=== PATIENT | female | born 1955 | race Caucasian/White ===

== ENCOUNTER → 2017-07-12 | Outpatient (CLI) | payer OTHER ==
[~2017-07-12] MED LIST: ACETAMINOPHEN325 M1 PO; ACETAMINOPHEN650 M5 PO; ACIDOPHILUS1 EAC4 PO; ADULT LOW DOSE81 MG PO; ADVAIR 500-501 EACH INH; ALBUTEROL2.5 MG/31 INH; ALDACTONE50 MG PO; ARICEPT 5 MG TAB5 MG PO; ASPIRIN EC81 M1 PO; ASPIRIN325 PO; ASPIRIN81 M2 PO; ATENOLOL 50MG T50 M1 PO; AUGMENTIN 875875 M1 PO; BAYER CHEWABLE81 MG PO; BENADRYL ALLERG25 MG PO; BENADRYL25 MG PO; BUMETANIDE 1 MG1 M1 PO; CARAFATE 1 GM TA1 G1 PO; CARAFATE 1 GM TA1 GM PO; CIPRO500 MG/5 M PO; COLACE100 MG PO; COMBIVENT INH; COMBIVENT RESPIM4 GM INH; COUMADIN 2.5MG2.5 M1 PO; COUMADIN 5 MG TA5 M1 PO; DEEP SEA NASAL44 M1 NASAL; DIFLUCAN200 MG PO; DOXYCYCLINE 10100 MG PO; DUONEB 2.5-0.5 M3 ML INH; DURAGESIC25 MCG/HR TRANSDERM; FLAGYL 250 MG250 MG PO; FLEXERIL PO; FLONASE 0.05%50 MCG NASAL; GLUCOPHAGE1000 MG PO; GLUCOPHAGE500 MG PO; GLYBURIDE 5 MG T5 M1 PO; GLYCOLAX POWDER17 G1 PO; K-DUR 20 MEQ T20 MEQ PO; KEFLEX500 M1 PO; KEFLEX500 MG PO; LASIX 40 MG TAB40 M2 PO; LEVAQUIN 500 M500 M2 PO; LOPRESSOR 50 MG50 M1 PO; LOPRESSOR100 MG PO; LOPRESSOR25 PO; LOPRESSOR50 PO; LOVENOX40 MG/0.4 SUBQ; METHIMAZOLE5 MG PO; MIRALAX17 GM PO; MIRAPEX0.25 MG PO; MIRAPEX0.5 MG PO; MULTAQ400 MG PO; NEURONTIN 300300 M1 PO; NEURONTIN600 MG PO; NYSTATIN100000 UNI SWISH&SPIT; OXYCODONE-ACET1 EACH PO; OXYCONTIN20 M1 PO; PERCOCET 10-321 EACH PO; PERCOCET 5-3251 EACH PO; PERCOCET 7.5-31 EACH PO; POTASSIUM20 PO; PREDNISONE 10 M10 M1; PREDNISONE 10 M10 M1 PO; PREDNISONE 20 M20 MG; PROAIR HFA8.5 GM INH; PROBIOTIC1 EAC1 PO; PROPYLTHIOURACIL PO; PROPYLTHIOURACIL1 GM PO; PROTONIX40 M2 PO; PROVENTIL HFA6.7 G1 INH; SENNA PO; TAPAZOLE10 MG PO; TIZANIDINE HCL4 MG PO; TRAMADOL 50 MG50 MG PO; VANCOMYCIN1 GM/1001 IV; WELLBUTRIN SR150 MG PO; ZANAFLEX4 MG PO; ZOFRAN 4 MG ORAL4 MG PO; ZOFRAN4 MG PO; ZOSYN 3.373.375 GM/1 IVPB
== END ==
LOC: HYPER 06:55
DX: E11.622 Type 2 diabetes mellitus with other skin ulcer (principal); I87.332 Chronic venous hypertension (idiopathic) with ulcer and inflammation of left lower extremity; L97.321 Non-pressure chronic ulcer of left ankle limited to breakdown of skin; M79.7 Fibromyalgia; M32.10 Systemic lupus erythematosus, organ or system involvement unspecified; E11.40 Type 2 diabetes mellitus with diabetic neuropathy, unspecified; J44.9 Chronic obstructive pulmonary disease, unspecified; I25.10 Atherosclerotic heart disease of native coronary artery without angina pectoris; F41.9 Anxiety disorder, unspecified; F32.9 Major depressive disorder, single episode, unspecified; K21.9 Gastro-esophageal reflux disease without esophagitis; M19.90 Unspecified osteoarthritis, unspecified site; E11.51 Type 2 diabetes mellitus with diabetic peripheral angiopathy without gangrene; E66.9 Obesity, unspecified; Z68.32 Body mass index [BMI] 32.0-32.9, adult; Z86.718 Personal history of other venous thrombosis and embolism

== ENCOUNTER → 2017-11-02 | Outpatient (CLI) | payer OTHER ==
[~2017-11-02] MED LIST changes: -ACIDOPHILUS1 EAC4 PO; -DURAGESIC25 MCG/HR TRANSDERM; -KEFLEX500 M1 PO; -NYSTATIN100000 UNI SWISH&SPIT; -OXYCODONE-ACET1 EACH PO; -OXYCONTIN20 M1 PO; -PROBIOTIC1 EAC1 PO; -VANCOMYCIN1 GM/1001 IV
== END ==
LOC: HYPER 06:45
DX: E11.622 Type 2 diabetes mellitus with other skin ulcer (principal); I87.333 Chronic venous hypertension (idiopathic) with ulcer and inflammation of bilateral lower extremity; L97.321 Non-pressure chronic ulcer of left ankle limited to breakdown of skin; L97.822 Non-pressure chronic ulcer of other part of left lower leg with fat layer exposed; E11.621 Type 2 diabetes mellitus with foot ulcer; L97.512 Non-pressure chronic ulcer of other part of right foot with fat layer exposed; E11.39 Type 2 diabetes mellitus with other diabetic ophthalmic complication; H40.9 Unspecified glaucoma; E11.51 Type 2 diabetes mellitus with diabetic peripheral angiopathy without gangrene; E11.40 Type 2 diabetes mellitus with diabetic neuropathy, unspecified; E66.9 Obesity, unspecified; I25.10 Atherosclerotic heart disease of native coronary artery without angina pectoris; E03.9 Hypothyroidism, unspecified; K21.9 Gastro-esophageal reflux disease without esophagitis; M79.7 Fibromyalgia; M32.10 Systemic lupus erythematosus, organ or system involvement unspecified; M19.90 Unspecified osteoarthritis, unspecified site; G47.30 Sleep apnea, unspecified; J44.9 Chronic obstructive pulmonary disease, unspecified; F41.9 Anxiety disorder, unspecified; F32.9 Major depressive disorder, single episode, unspecified; Z68.32 Body mass index [BMI] 32.0-32.9, adult; Z86.718 Personal history of other venous thrombosis and embolism; Z87.891 Personal history of nicotine dependence

== ENCOUNTER → 2017-11-30 | Outpatient (CLI) | payer OTHER | LOC: HYPER 06:54 | DX: E11.621 Type 2 diabetes mellitus with foot ulcer (principal); L97.512 Non-pressure chronic ulcer of other part of right foot with fat layer exposed; E11.622 Type 2 diabetes mellitus with other skin ulcer; L97.822 Non-pressure chronic ulcer of other part of left lower leg with fat layer exposed; I87.333 Chronic venous hypertension (idiopathic) with ulcer and inflammation of bilateral lower extremity; M79.7 Fibromyalgia; M32.10 Systemic lupus erythematosus, organ or system involvement unspecified; E11.40 Type 2 diabetes mellitus with diabetic neuropathy, unspecified; J44.9 Chronic obstructive pulmonary disease, unspecified; I25.10 Atherosclerotic heart disease of native coronary artery without angina pectoris; F41.9 Anxiety disorder, unspecified; F32.9 Major depressive disorder, single episode, unspecified; K21.9 Gastro-esophageal reflux disease without esophagitis; M19.90 Unspecified osteoarthritis, unspecified site; E66.9 Obesity, unspecified; Z68.32 Body mass index [BMI] 32.0-32.9, adult; E11.51 Type 2 diabetes mellitus with diabetic peripheral angiopathy without gangrene; Z87.891 Personal history of nicotine dependence; Z86.718 Personal history of other venous thrombosis and embolism ==

== ENCOUNTER → 2017-12-27 | Outpatient (CLI) | payer OTHER | LOC: HYPER 06:50 | DX: E11.622 Type 2 diabetes mellitus with other skin ulcer (principal); I87.333 Chronic venous hypertension (idiopathic) with ulcer and inflammation of bilateral lower extremity; L97.822 Non-pressure chronic ulcer of other part of left lower leg with fat layer exposed; L97.811 Non-pressure chronic ulcer of other part of right lower leg limited to breakdown of skin; E11.621 Type 2 diabetes mellitus with foot ulcer; L97.512 Non-pressure chronic ulcer of other part of right foot with fat layer exposed; L97.321 Non-pressure chronic ulcer of left ankle limited to breakdown of skin; L97.311 Non-pressure chronic ulcer of right ankle limited to breakdown of skin; E11.40 Type 2 diabetes mellitus with diabetic neuropathy, unspecified; E11.39 Type 2 diabetes mellitus with other diabetic ophthalmic complication; H40.9 Unspecified glaucoma; E11.51 Type 2 diabetes mellitus with diabetic peripheral angiopathy without gangrene; E66.9 Obesity, unspecified; I25.10 Atherosclerotic heart disease of native coronary artery without angina pectoris; E03.9 Hypothyroidism, unspecified; K21.9 Gastro-esophageal reflux disease without esophagitis; M32.10 Systemic lupus erythematosus, organ or system involvement unspecified; M19.90 Unspecified osteoarthritis, unspecified site; G47.30 Sleep apnea, unspecified; J44.9 Chronic obstructive pulmonary disease, unspecified; F41.9 Anxiety disorder, unspecified; F32.9 Major depressive disorder, single episode, unspecified; Z86.718 Personal history of other venous thrombosis and embolism; Z87.891 Personal history of nicotine dependence; Z68.32 Body mass index [BMI] 32.0-32.9, adult ==

== ENCOUNTER → 2018-01-22 | Outpatient (CLI) | payer OTHER | LOC: HYPER 07:04 | DX: E11.622 Type 2 diabetes mellitus with other skin ulcer (principal); I87.333 Chronic venous hypertension (idiopathic) with ulcer and inflammation of bilateral lower extremity; L97.822 Non-pressure chronic ulcer of other part of left lower leg with fat layer exposed; L97.321 Non-pressure chronic ulcer of left ankle limited to breakdown of skin; E11.621 Type 2 diabetes mellitus with foot ulcer; L97.521 Non-pressure chronic ulcer of other part of left foot limited to breakdown of skin; L97.511 Non-pressure chronic ulcer of other part of right foot limited to breakdown of skin; E11.40 Type 2 diabetes mellitus with diabetic neuropathy, unspecified; E11.39 Type 2 diabetes mellitus with other diabetic ophthalmic complication; H40.89 Other specified glaucoma; H42 Glaucoma in diseases classified elsewhere; E11.51 Type 2 diabetes mellitus with diabetic peripheral angiopathy without gangrene; I25.10 Atherosclerotic heart disease of native coronary artery without angina pectoris; E66.9 Obesity, unspecified; E03.9 Hypothyroidism, unspecified; K21.9 Gastro-esophageal reflux disease without esophagitis; M19.90 Unspecified osteoarthritis, unspecified site; M32.10 Systemic lupus erythematosus, organ or system involvement unspecified; M79.7 Fibromyalgia; G47.30 Sleep apnea, unspecified; J44.9 Chronic obstructive pulmonary disease, unspecified; F41.9 Anxiety disorder, unspecified; F32.9 Major depressive disorder, single episode, unspecified; Z87.891 Personal history of nicotine dependence; Z86.718 Personal history of other venous thrombosis and embolism; Z68.32 Body mass index [BMI] 32.0-32.9, adult ==

== ENCOUNTER 2018-02-27 09:33 | Inpatient (IN) | payer OTHER ==
[~2018-02-27] VITALS: Ht 172.7 cm; Wt 100.2 kg
--- NOTE | ~2018-02-27 | HC ---
[facility] [address] [place] [address] CONSULTATION Name: JORGITO MANNING Room #: 450-P [facility] IN ..#: [id number] Admission: 02/27/18 Attend Phys: Odin Rudolph MD Discharge: Date of : 57 Report #: [id number] THIS REPORT FOR: //name// CC: Odin Parra DATE OF SERVICE: 03/01/2018 CHIEF COMPLAINT: Multiple venous ulcerations to both lower extremities. HISTORY OF PRESENT ILLNESS: This is a 62-year-old female patient with whom I am familiar from the wound care service with chronic infected ulcerations to both lower extremities and underlying venous insufficiency. She has been seen by Dr. Raghavendra Braun and has undergone some venous ablation procedures. She has had persistent ulcerations and has developed increasing slough and infection. She has been admitted to the hospital and has undergone surgical ultrasonic debridement. She is having some pain today. PAST MEDICAL HISTORY: Positive for history of venous insufficiency, cellulitis, chronic ulcerations, and history of sepsis. ALLERGIES: MEPERIDINE, SULFA, HYDROMORPHONE, AND PHENYTOIN. MEDICATIONS: Include doxycycline, oxycodone, cyclobenzaprine, Protonix, Advair, Ultram, AccuNeb, Mirapex, Aricept, Combivent inhaler, Zanaflex, Neurontin, Tenormin, Tapazole, potassium, Percocet, enteric-coated aspirin. SOCIAL HISTORY: The patient is a previous smoker. No history of drug or alcohol use. FAMILY HISTORY: Noncontributory. REVIEW OF SYSTEMS: CONSTITUTIONAL: The patient denies fever, chills or weight loss. NEUROLOGICAL: The patient denies focal weakness, numbness or tingling. EYES: The patient denies visual changes, redness or drainage. ENT: The patient denies earache, nasal drainage, or sore throat. CARDIOVASCULAR: The patient denies chest pain, palpitations, or diaphoresis. PULMONARY: The patient denies cough or shortness of breath. GASTROINTESTINAL: The patient denies nausea, vomiting, diarrhea or abdominal pain. ORTHOPEDIC: The patient complains of painful ulcerations bilateral lower extremities with some lower extremity edema. Other systems in a 14-point review of systems are negative. [address] [address] CONSULTATION Name: JORGITO MANNING Room #: 450-[facility] IN [facility].#: [id number] Admission: 02/27/18 Attend Phys: Odin Rudolph MD Discharge: Date of : 57 Report #: [id number] PHYSICAL EXAMINATION: VITAL SIGNS: At this time include pulse rate 58, respiratory rate of 18, blood pressure 114/61, temperature 98.6. GENERAL: This is a well-developed female patient, appears to be in minimal distress. HEENT: Head is normocephalic. Nose and throat clear. NECK: Supple. LUNGS: Clear. HEART: . ABDOMEN: Bowel sounds present. EXTREMITIES: The lower extremities demonstrate palpable distal pulses. She has moderate edema. She has multiple ulcerations involving both lower extremities, more so on the right than the left including the lower leg and the medial and plantar portion of her right foot. LABORATORY DATA: Includes sodium 140, potassium 4.5, chloride 104, CO2 22, BUN 18, creatinine 1.1, glucose 79. White blood cell count is 10.1, hemoglobin 13.2, hematocrit of 40.0, platelet count 429,000. CLINICAL IMPRESSION: 1. Nonhealing venous stasis ulcerations bilateral lower extremities. 2. Venous stasis dermatitis. 3. Recurrent wound infection with failure of outpatient therapy. RECOMMENDATIONS: The patient has already undergone Misonix debridement. We will recommend topical wound care with Xeroform gauze. Recommend elevation of the extremity. She remains on antibiotic therapy. She may benefit from tissue substitute at some point in time. I appreciate being asked to see her in consultation. <ELECTRONICALLY SIGNED> By: Dar Skinner MD 03/02/18 0741 [id number] Dar Skinner MD /nt
[~2018-02-27 09:33] MED LIST changes: +KEFLEX500 M1 PO; +PROBIOTIC1 EAC1 PO
[2018-02-27 09:43] VITALS: BP 120/67
[2018-02-27 10:36] LABS: HEMATOCRIT 37.4 % (37.0-47.0); HEMOGLOBIN 12.4 gm/dL (12.0-15.0); MCH 30.2 pg (26.0-34.0); MCHC 33.1 g/dL (28.0-37.0); MCV 91.3 fL (80.0-100.0); PLATELET COUNT 548 thou/uL (150-400); RBC 4.09 mil/uL (4.20-5.00); RDW 14.3 % (10.5-14.5); WBC 11.6 thou/uL (4.0-11.0)
[2018-02-27 10:55] LABS: CALCIUM 9.1 mg/dL (8.5-10.1)
[2018-02-27 10:59] LABS: ALBUMIN 3.1 g/dL (3.4-5.0); DIRECT BILIRUBIN 0.1 mg/dL (<0.1-0.3); TOTAL BILIRUBIN 0.5 mg/dL (<0.1-1.0); TOTAL PROTEIN 7.7 g/dL (6.4-8.2)
[2018-02-27] MEDS ORDERED: OXYCONTIN20 M1 PO (11:04)
[2018-02-27] MEDS ORDERED: OXYCODONE-ACET1 EACH PO (11:05)
[2018-02-27 11:14] LABS: PLATELET ESTIMATE INCREASED
[2018-02-27 12:53] VITALS: BP 115/66
[2018-02-27 13:05] VITALS: BP 121/55
[2018-02-27 16:25] VITALS: BP 115/73
[2018-02-27 19:51] VITALS: BP 111/66
[2018-02-28 02:28] VITALS: BP 110/57
[2018-02-28 05:54] LABS: HEMOGLOBIN 13.2 gm/dL (12.0-15.0); MCH 30.4 pg (26.0-34.0); MCHC 32.9 g/dL (28.0-37.0); MCV 92.5 fL (80.0-100.0); RBC 4.33 mil/uL (4.20-5.00); RDW 14.7 % (10.5-14.5); WBC 10.1 thou/uL (4.0-11.0)
[2018-02-28 05:59] LABS: CALCIUM 9.4 mg/dL (8.5-10.1); CREATININE 1.1 mg/dL (0.6-1.0); POTASSIUM 4.5 mmol/L (3.5-5.1)
[2018-02-28 08:23] VITALS: BP 110/62
[2018-02-28 19:11] VITALS: BP 106/70
[2018-03-01 03:27] VITALS: BP 112/58
[2018-03-01 07:28] VITALS: BP 102/58
[2018-03-01 17:05] VITALS: BP 114/61
[2018-03-01 19:27] VITALS: BP 113/71
[2018-03-02 05:05] VITALS: BP 96/66
[2018-03-02] MEDS ORDERED: DURAGESIC25 MCG/HR TRANSDERM (08:54)
[2018-03-02] MEDS ORDERED: DOXYCYCLINE 10100 MG PO (08:54)
[2018-03-02 09:42] VITALS: BP 109/63
[2018-03-02 10:58] VITALS: BP 109/63
[2018-03-02 11:49] VITALS: BP 109/63
== END 2018-03-02 13:24 | disposition home health service (06) | DRG 854 ==
LOC: ER 09:33 → EROBS 10:59 → 4W 10:59 → ENTRNSPT 03-02 13:13 → 4W 03-02 13:24
PROVIDERS: Emergency Medicine; Hospitalist
PROC: 0JBP0ZZ Excision of Left Lower Leg Subcutaneous Tissue and Fascia, Open Approach (ICD-10-PCS; principal; 2018-02-28)
PROC: 0JBN0ZZ Excision of Right Lower Leg Subcutaneous Tissue and Fascia, Open Approach (ICD-10-PCS; principal; 2018-02-28)
DX: A41.9 Sepsis, unspecified organism (principal); L03.115 Cellulitis of right lower limb; L97.909 Non-pressure chronic ulcer of unspecified part of unspecified lower leg with unspecified severity; L03.116 Cellulitis of left lower limb; I87.2 Venous insufficiency (chronic) (peripheral); I73.9 Peripheral vascular disease, unspecified; J44.9 Chronic obstructive pulmonary disease, unspecified; I50.9 Heart failure, unspecified; H40.9 Unspecified glaucoma; E03.9 Hypothyroidism, unspecified; Z16.30 Resistance to unspecified antimicrobial drugs; M34.9 Systemic sclerosis, unspecified; M32.9 Systemic lupus erythematosus, unspecified; Z87.891 Personal history of nicotine dependence; Z79.82 Long term (current) use of aspirin; Z79.899 Other long term (current) drug therapy; Z90.49 Acquired absence of other specified parts of digestive tract; Z98.49 Cataract extraction status, unspecified eye; Z88.8 Allergy status to other drugs, medicaments and biological substances; Z88.6 Allergy status to analgesic agent; Z88.2 Allergy status to sulfonamides
CPT/HCPCS: 10040; 50010; 50101; 50386; 50403; 57119; 57120; 62110; 62900; 70005

== ENCOUNTER → 2018-04-03 | Outpatient (CLI) | payer OTHER ==
[~2018-04-03] MED LIST changes: +ACIDOPHILUS1 EAC4 PO; +DURAGESIC25 MCG/HR TRANSDERM; +NYSTATIN100000 UNI SWISH&SPIT; +OXYCODONE-ACET1 EACH PO; +OXYCONTIN20 M1 PO; +VANCOMYCIN1 GM/1001 IV
== END ==
LOC: HYPER 07:06
DX: E11.622 Type 2 diabetes mellitus with other skin ulcer (principal); L97.322 Non-pressure chronic ulcer of left ankle with fat layer exposed; L97.811 Non-pressure chronic ulcer of other part of right lower leg limited to breakdown of skin; I87.333 Chronic venous hypertension (idiopathic) with ulcer and inflammation of bilateral lower extremity; E11.621 Type 2 diabetes mellitus with foot ulcer; L97.512 Non-pressure chronic ulcer of other part of right foot with fat layer exposed; T14.8XXD Other injury of unspecified body region, subsequent encounter; L03.115 Cellulitis of right lower limb; E11.51 Type 2 diabetes mellitus with diabetic peripheral angiopathy without gangrene; E11.39 Type 2 diabetes mellitus with other diabetic ophthalmic complication; H40.9 Unspecified glaucoma; E11.40 Type 2 diabetes mellitus with diabetic neuropathy, unspecified; E66.9 Obesity, unspecified; E05.00 Thyrotoxicosis with diffuse goiter without thyrotoxic crisis or storm; G47.30 Sleep apnea, unspecified; I25.10 Atherosclerotic heart disease of native coronary artery without angina pectoris; M79.7 Fibromyalgia; M32.10 Systemic lupus erythematosus, organ or system involvement unspecified; M19.90 Unspecified osteoarthritis, unspecified site; J44.9 Chronic obstructive pulmonary disease, unspecified; K21.9 Gastro-esophageal reflux disease without esophagitis; F41.9 Anxiety disorder, unspecified; F32.9 Major depressive disorder, single episode, unspecified; Z86.718 Personal history of other venous thrombosis and embolism; Z87.891 Personal history of nicotine dependence

== ENCOUNTER 2018-04-13 15:45 | Inpatient (IN) | payer OTHER ==
[~2018-04-13] VITALS: Ht 172.7 cm; Wt 102.5 kg
--- NOTE | ~2018-04-13 | HC ---
[facility] [address] [place] [address] CONSULTATION Name: JORGITO MANNING Philomena Room #: 458-P [facility] [place] M.R.#: [id number] Admission: 04/13/18 Attend Phys: Paul Anderson MD Discharge: Date of : 57 Report #: [id number] THIS REPORT FOR: //name// CC: APOLLO Anderson DATE OF SERVICE: 04/14/2018 ATTENDING PHYSICIAN: Dr. Anderson. REASON FOR EVALUATION: Bilateral lower extremity inflammatory eruptions, likely multifactorial including a component of skin and soft tissue infection with cellulitis. She does have open wounds as well. HISTORY OF PRESENT ILLNESS: Chart reviewed, patient examined. This is a 62-year-old with a history of systemic lupus erythematosus with scleroderma, somewhat of a fibromyalgia with pain as well who presented with worsening pain and discomfort associated with bilateral lower extremities. They are weeping increasingly and difficult to walk. She notes she had been evaluated by Vascular Surgery, has been undergoing some laser procedures as well. She was placed on oral doxycycline without significant improvement. She was found to have a sed rate of 100. Cultures have been collected of the blood and the wound. Empirically treated with piperacillin-tazobactam as well as vancomycin. She notes there is a mildly less pain. Has not had significant pulmonary-related complaints. Had some anorexia with poor p.o. intake and weight loss. Some low grade temperature elevations. ALLERGIES: LISTED TO HYDROMORPHONE, PHENYTOIN, SULFA, MEPERIDINE. CURRENT MEDICATIONS: Include vancomycin, fentanyl, aspirin, fluticasone, pantoprazole, Zosyn, gabapentin, enoxaparin, bumetanide, dronedarone, atenolol, donepezil, pramipexole, furosemide, docusate, oxycodone. PAST MEDICAL HISTORY: The above noted lupus diagnosed roughly 15 years ago, scleroderma, COPD, component of restrictive lung disease, cardiomyopathy with congestive heart failure, Graves' disease, glaucoma, cataracts, previous cholecystectomy, tonsillectomy. SOCIAL HISTORY: Former smoker. No ethanol. FAMILY HISTORY: Noncontributory. REVIEW OF SYSTEMS: As above. PHYSICAL EXAMINATION: GENERAL: She appears somewhat chronically ill, undernourished. She is pleasant [address] [address] CONSULTATION Name: JORGITO MANNING Room #: 458-P [facility] [place] .R.#: [id number] Admission: 04/13/18 Attend Phys: Paul Anderson MD Discharge: Date of : 57 Report #: [id number] and cooperative. She is in moderate distress secondary to her pain involving her legs. VITAL SIGNS: Temperature overnight max 100.1, pulse 80, respirations 16, blood pressure 101/56. SKIN: Warm, dry. No rashes. NECK: Supple. LUNGS: Diminished breath sounds. Few scattered crackles at the base. HEART: Regular. I do not believe she has got a murmur. ABDOMEN: Soft, nontender. EXTREMITIES: Bilateral lower extremities have changes consistent with venous stasis insufficiency, has dermopathy, does have wound dressings in place. GENITOURINARY AND RECTAL: Deferred. LABORATORY DATA: ProBNP elevated at 1360. TSH of 0.555, protein 73, albumin 2.9. Prealbumin of 14.2. Sed rate of 100. CBC: White count 11.2, H and H 12.0 and 36.2, platelets of 32 with 7% eosinophils, this comes out to about absolute on lower 700. Lactic acid 1.2. CRP of 32.6. Electrolytes: Sodium 135, potassium 3.6, bicarb 25, BUN and creatinine 13 and 1.0. ASSESSMENT AND PLAN: Bilateral lower extremity inflammatory eruptions, I suspect multifactorial etiology, underlying venous stasis insufficiency with dermatitis and ulcers secondarily infected. We will continue the empiric antimicrobial therapy, elevation, consider adding a compression to the wound care and see how she does clinically. Evidently its a long-term issue that has been followed by Vascular Surgery as well. <ELECTRONICALLY SIGNED> By: Jose Laird MD 04/15/18 0357 [id number] 1325 Jose Laird MD /nt
--- NOTE | ~2018-04-13 | HC ---
[facility] [address] [address] CONSULTATION Name: JORGITO MANNING Room #: 458-P [facility] IN ..#: [id number] Admission: 04/13/18 Attend Phys: Paul Anderson MD Discharge: Date of : 57 Report #: [id number] THIS REPORT FOR: //name// CC: APOLLO Anderson DATE OF SERVICE: 04/14/2018 WOUND CARE CONSULTATION REASON FOR CONSULTATION: Nonhealing venous stasis ulcers of both legs with new onset worsened cellulitis of both legs, admitted to the Emergency Room. HISTORY OF PRESENT ILLNESS: The patient is a 62-year-old woman well known to Dr. Kong Montes for treatment of chronic nonhealing venous stasis ulcerations of bilateral lower extremities. She also carries a diagnosis of systemic lupus erythematosus and scleroderma. The patient states that Dr. Montes has done arterial evaluations of both legs and arterial supply is good. She is seeing Dr. Andrew Braun and has had vascular procedures done for healing of her venous ulcers. Legs became more tender, more red, more swollen with increased drainage and pain. The patient was admitted to the Emergency Room for IV antibiotics and further treatment. The patient also states she may have had a brown recluse spider bite wound to the leg at one time. PAST MEDICAL HISTORY: History of cigarette smoking in the past, scleroderma, restrictive lung disease, COPD, cardiomyopathy with congestive heart failure, Graves' disease, glaucoma, cataracts, history of venous stasis ulceration in the past. PAST SURGICAL HISTORY: Cholecystectomy, tonsillectomy operating room debridement with Misonix of lower extremity wounds. ALLERGIES: HYDROMORPHONE, PENICILLIN, SULFA AND MEPERIDINE. CURRENT MEDICATIONS: Include empiric Unasyn and vancomycin, fentanyl, aspirin, fluticasone, pantoprazole, gabapentin, enoxaparin, bumetanide, dronedarone, atenolol, donepezil, pramipexole, furosemide, docusate and oxycodone. SOCIAL HISTORY: Former smoker, no smoking now. PHYSICAL EXAMINATION: GENERAL: The patient is alert, a good historian, coherent without any signs of sepsis. VITAL SIGNS: Temperature 36.7, pulse 78, respirations 18, blood pressure 95/54. HEENT: Mucous membranes are moist. NECK: Supple. [address] [address] CONSULTATION Name: JORGITO MANNING Room #: 458-P [facility] IN ..#: [id number] Admission: 04/13/18 Attend Phys: Paul Anderson MD Discharge: Date of : 57 Report #: [id number] LUNGS: Respirations are unlabored. ABDOMEN: Soft. EXTREMITIES: Upper extremities are normal. Examination of the lower extremities shows bright red erythema of both lower legs starting about 10 cm below the knee. Multiple chronic nonhealing ulcerations are present of the lower extremities. Starting on left lateral leg, she has an open 5 x 4 cm chronic ulceration with adherent dense yellowish vanegas exudate. This is superficial ulcer. Over the left medial malleolus, there is a 2 x 3 cm, similar chronic appearing ulcer with a densely adherent fibrinous exudate. On the right leg in the anterior tibial area of the lower leg, there is a 1.5 x 1.5 cm deeper 0.3 cm ulcer again with densely adherent exudate. Over the left medial malleolus is her largest ulcer measuring 9 x 4 cm extending over the entire medial malleolus from the ankle down to the foot again with a dense thick adherent exudate. On the dorsum of the right foot at the base of the right third and fourth toes, there is a 1.5 x 1.2 cm ulceration, so again there are 2 ulcerations on the left and 3 on the right, all with a densely adherent exudate. All these are surrounded by a bright red cellulitic skin with some edema. Dorsalis pedis pulses are palpable. IMPRESSION: 1. Bilateral venous stasis with inflammation and ulceration of the left and the right leg. 2. Cellulitis of the left and the right leg. 3. History of systemic lupus erythematosus. 4. History of scleroderma. PLAN: 1. Order morphine, Silvadene cream topically with Xeroform, ABD dressings, Kerlix wrap to both legs to be changed twice daily. The patient may require operating room debridement of the ulcers by Misonix ultrasonic debridement due to the dense adherent exudate. Buildup of nonviable tissue on the wound may have contributed to her cellulitis. 2. Infectious Disease consultation has been done. The patient is currently on Zosyn and vancomycin. Adjust IV antibiotics as needed. Wound care team will follow. <ELECTRONICALLY SIGNED> By: Brian Lopez MD 04/15/18 1009 1440 2159 Brian Lopez MD /nt
--- NOTE | ~2018-04-13 | 2DMMODE ---
[facility] [address] [place] [address] 2 D/M-MODE ECHOCARDIOGRAM Name: JORGITO MANNING Room #: 458-P [facility] IN ..#: [id number] Admission: 04/13/18 Attend Phys: Paul Anderson, Discharge: Date of : 57 Date of Service: 04/16/18 1136 Report #: [id number] THIS REPORT FOR: //name// APPROVED REPORT Study performed: 04/16/2018 10:24:20 EXAM: Comprehensive 2D, Doppler, and color-flow Echocardiogram Patient Location: Echo lab Room #: [facility] Status: routine BSA: 2.09 HR: 63 bpm BP: 142/98 mmHg Rhythm: NSR Other Information Study Quality: Adequate Indications Leg swelling and wounds. Hx: CHF, COPD, Graves disease. 2D Dimensions RVDd: 38.53 mm IVSd: 9.45 (7-11mm) LVOT Diam: 20.07 (18-24mm) LVDd: 49.06 mm PWd: 9.15 (7-11mm) Ascending Ao: 33.97 (22-36mm) LVDs: 32.97 (25-40mm) Aortic Root: 32.89 mm Volumes Left Atrial Volume (Systole) Single Plane 4CH: 68.73 mL Single Plane 2CH: 84.30 mL LA ESV Index: 39.00 mL/m2 Aortic Valve AoV Peak Meir.: 1.90 m/s AO Peak Gr.: 14.55 mmHg LVOT Max P.65 mmHg LVOT Max V: 0.95 m/s JOSE R Vmax: 1.59 cm2 Mitral Valve MV Decel. Time: 200.03 ms MV E Max Meir.: 1.37 m/s [facility] [address] [place] [address] 2 D/M-MODE ECHOCARDIOGRAM Name: JORGITO MANNING Room #: 458-P [facility]#: [id number] Admission: 04/13/18 Attend Phys: Paul Anderson, Discharge: Date of : 57 Date of Service: 04/16/18 1136 Report #: [id number] Pulmonary Valve PV Peak Meir.: 1.23 m/s PV Peak Gr.: 6.09 mmHg Pulmonary Vein P Vein S: 0.21 m/s P Vein D: 0.65 m/s P Vein S/D Ratio: 0.32 Tricuspid Valve TR Peak Meir.: 2.87 m/s RAP Estimate: 10.00 mmHg TR Peak Gr.: 32.99 mmHg PA Pressure: 43.00 mmHg Left Ventricle The left ventricle is normal size. There is normal LV segmental wall motion. There is normal left ventricular wall thickness. Left ventricular systolic function is normal. LVEF is 55-60%. This study is not technically sufficient to allow evaluation of the LV diastolic function due to atrial fibrillation. Right Ventricle The right ventricle is normal size. The right ventricular systolic function is normal. Atria Left atrium is moderately dilated. Right atrium is mildly dilated. Aortic Valve Aortic valve is mildly calcified. No aortic regurgitation is present. There is no aortic valvular stenosis. Mitral Valve The mitral valve is normal in structure. Moderate mitral regurgitation. Tricuspid Valve The tricuspid valve is normal in structure. Moderate tricuspid regurgitation. Estimated PAP is 40-45mmHg. Pulmonic Valve The pulmonary valve is normal in structure. Trace pulmonic regurgitation. Great Vessels The aortic root is normal in size. The ascending aorta is normal in [facility] [address] [place] [address] 2 D/M-MODE ECHOCARDIOGRAM Name: JORGITO MANNING Room #: 458-P [facility] IN ..#: [id number] Admission: 04/13/18 Attend Phys: Paul Anderson, Discharge: Date of : 57 Date of Service: 04/16/18 1136 Report #: [id number] size. IVC is dilated and collapses <50% with inspiration. Pericardium There is no pericardial effusion. <Conclusion> Left ventricular systolic function is normal. There is normal LV segmental wall motion. LVEF is 55-60%. Both atria are dilated. Aortic valve is mildly calcified. No aortic regurgitation or stenosis The mitral valve is normal in structure. Moderate mitral regurgitation. Moderate tricuspid regurgitation. Estimated pulmonary artery pressure of 40-45mmHg. There is no pericardial effusion. <ELECTRONICALLY SIGNED> By: Luis Fernando Rodriguez MD, FACC 04/16/18 1136 1136 113 Luis Fernando Rodriguez MD, FACC /INF
[~2018-04-13 15:45] MED LIST changes: -ACIDOPHILUS1 EAC4 PO; -NYSTATIN100000 UNI SWISH&SPIT; -VANCOMYCIN1 GM/1001 IV
[2018-04-13 16:01] VITALS: BP 139/74
[2018-04-13 16:41] LABS: CALCIUM 8.9 mg/dL (8.5-10.1); POTASSIUM 3.6 mmol/L (3.5-5.1)
[2018-04-13 16:42] LABS: HEMATOCRIT 36.2 % (37.0-47.0); MCHC 33.3 g/dL (28.0-37.0); MCV 90.3 fL (80.0-100.0); PLATELET COUNT 382 thou/uL (150-400); RBC 4.01 mil/uL (4.20-5.00); RDW 14.9 % (10.5-14.5); WBC 11.2 thou/uL (4.0-11.0)
[2018-04-13 17:11] LABS: ABSOLUTE NEUTROPHILS 4.9 thou/uL (1.4-8.2)
[2018-04-13 17:58] VITALS: BP 139/74
[2018-04-13 19:22] LABS: ALBUMIN 2.9 g/dL (3.4-5.0); TOTAL PROTEIN 7.3 g/dL (6.4-8.2)
[2018-04-13 19:32] VITALS: BP 121/72
[2018-04-13 19:45] LABS: TSH 0.555 uIU/mL (0.358-3.740)
[2018-04-13 21:16] VITALS: BP 120/74
[2018-04-14 00:24] VITALS: BP 101/56
[2018-04-14 07:54] LABS: HEMATOCRIT 36.5 % (37.0-47.0); HEMOGLOBIN 12.2 gm/dL (12.0-15.0); MCH 30.5 pg (26.0-34.0); MCHC 33.3 g/dL (28.0-37.0); MCV 91.6 fL (80.0-100.0); RBC 3.99 mil/uL (4.20-5.00); RDW 14.8 % (10.5-14.5); WBC 9.9 thou/uL (4.0-11.0)
[2018-04-14 08:05] LABS: CALCIUM 8.9 mg/dL (8.5-10.1); CREATININE 1.2 mg/dL (0.6-1.0); MAGNESIUM 2.4 mg/dL (1.8-2.4); POTASSIUM 3.7 mmol/L (3.5-5.1)
[2018-04-14 08:24] VITALS: BP 95/54
[2018-04-14 19:38] VITALS: BP 96/61
[2018-04-15 06:24] LABS: HEMATOCRIT 36.3 % (37.0-47.0); HEMOGLOBIN 12.1 gm/dL (12.0-15.0); MCH 30.6 pg (26.0-34.0); MCHC 33.4 g/dL (28.0-37.0); MCV 91.7 fL (80.0-100.0); RBC 3.96 mil/uL (4.20-5.00); RDW 15.2 % (10.5-14.5); WBC 9.6 thou/uL (4.0-11.0)
[2018-04-15 06:40] LABS: CALCIUM 9.4 mg/dL (8.5-10.1); CREATININE 1.3 mg/dL (0.6-1.0); MAGNESIUM 2.2 mg/dL (1.8-2.4)
[2018-04-15 08:07] VITALS: BP 106/54
[2018-04-16 02:56] LABS: HEMATOCRIT 38.3 % (37.0-47.0); HEMOGLOBIN 12.6 gm/dL (12.0-15.0); MCH 30.1 pg (26.0-34.0); MCHC 32.9 g/dL (28.0-37.0); MCV 91.3 fL (80.0-100.0); RBC 4.2 mil/uL (4.20-5.00); RDW 15.3 % (10.5-14.5); WBC 9.3 thou/uL (4.0-11.0)
[2018-04-16 03:02] LABS: CALCIUM 9.4 mg/dL (8.5-10.1); CREATININE 1.2 mg/dL (0.6-1.0); POTASSIUM 4.5 mmol/L (3.5-5.1)
[2018-04-16 08:42] VITALS: BP 142/98
[2018-04-16 19:01] VITALS: BP 113/65
[2018-04-17] VITALS (8 sets, daily range): BP systolic 93–145; BP diastolic 55–91
[2018-04-17 05:32] LABS: HEMATOCRIT 35.9 % (37.0-47.0); HEMOGLOBIN 11.8 gm/dL (12.0-15.0); MCH 29.9 pg (26.0-34.0); MCHC 32.7 g/dL (28.0-37.0); MCV 91.3 fL (80.0-100.0); RBC 3.94 mil/uL (4.20-5.00); RDW 14.9 % (10.5-14.5); WBC 8.7 thou/uL (4.0-11.0)
[2018-04-17 05:36] LABS: CALCIUM 9.2 mg/dL (8.5-10.1); CREATININE 1.1 mg/dL (0.6-1.0); MAGNESIUM 1.9 mg/dL (1.8-2.4); POTASSIUM 4.2 mmol/L (3.5-5.1)
[2018-04-18 08:30] VITALS: BP 110/63
[2018-04-18 20:57] VITALS: BP 97/43
[2018-04-19 04:41] LABS: HEMATOCRIT 35.6 % (37.0-47.0); HEMOGLOBIN 11.8 gm/dL (12.0-15.0); MCH 30.3 pg (26.0-34.0); MCHC 33.1 g/dL (28.0-37.0); MCV 91.6 fL (80.0-100.0); RBC 3.88 mil/uL (4.20-5.00); RDW 14.6 % (10.5-14.5)
[2018-04-19 05:01] LABS: CALCIUM 8.8 mg/dL (8.5-10.1); CREATININE 1.1 mg/dL (0.6-1.0); POTASSIUM 3.8 mmol/L (3.5-5.1)
[2018-04-19 07:05] VITALS: BP 96/50
[2018-04-19 19:01] VITALS: BP 91/43
[2018-04-20] VITALS (11 sets, daily range): BP systolic 90–110; BP diastolic 45–65
[2018-04-21 05:51] LABS: HEMATOCRIT 33.8 % (37.0-47.0); MCH 29.8 pg (26.0-34.0); MCHC 32.5 g/dL (28.0-37.0); MCV 91.7 fL (80.0-100.0); RBC 3.69 mil/uL (4.20-5.00); WBC 11.5 thou/uL (4.0-11.0)
[2018-04-21 05:59] LABS: CALCIUM 9.3 mg/dL (8.5-10.1); CREATININE 1.1 mg/dL (0.6-1.0); POTASSIUM 4.7 mmol/L (3.5-5.1)
[2018-04-21 07:17] VITALS: BP 103/56
[2018-04-21 16:10] VITALS: BP 117/66
[2018-04-21 19:20] VITALS: BP 106/55
[2018-04-22 05:35] LABS: HEMATOCRIT 33.9 % (37.0-47.0); HEMOGLOBIN 11.1 gm/dL (12.0-15.0); MCHC 32.8 g/dL (28.0-37.0); MCV 91.5 fL (80.0-100.0); RBC 3.71 mil/uL (4.20-5.00); RDW 14.8 % (10.5-14.5); WBC 11.6 thou/uL (4.0-11.0)
[2018-04-22 05:50] LABS: CREATININE 1.1 mg/dL (0.6-1.0); POTASSIUM 4.6 mmol/L (3.5-5.1)
[2018-04-22 07:24] VITALS: BP 110/48
[2018-04-22 19:01] VITALS: BP 96/54
[2018-04-22 23:32] VITALS: BP 96/54
[2018-04-23 05:30] LABS: HEMOGLOBIN 11.4 gm/dL (12.0-15.0); MCH 30.2 pg (26.0-34.0); MCHC 32.7 g/dL (28.0-37.0); MCV 92.3 fL (80.0-100.0); RBC 3.79 mil/uL (4.20-5.00)
[2018-04-23 05:34] LABS: CALCIUM 9.1 mg/dL (8.5-10.1); CREATININE 1.3 mg/dL (0.6-1.0); POTASSIUM 4.6 mmol/L (3.5-5.1)
[2018-04-23 07:45] VITALS: BP 106/64
[2018-04-23] MEDS ORDERED: NYSTATIN100000 UNI SWISH&SPIT (18:29)
[2018-04-23] MEDS ORDERED: VANCOMYCIN1 GM/1001 IV ×2 (18:33→19:35)
[2018-04-23] MEDS ORDERED: ACIDOPHILUS1 EAC4 PO (18:33)
[2018-04-23 18:42] VITALS: BP 106/64
[2018-04-24 10:04] VITALS: BP 106/64
== END 2018-04-23 20:17 | disposition home health service (06) | DRG 853 ==
LOC: ER 15:45 → EROBS 17:31 → 4W 17:31
PROVIDERS: Hospitalist; Internal Medicine; Physician Assistant
PROC: 05HY33Z Insertion of Infusion Device into Upper Vein, Percutaneous Approach (ICD-10-PCS; principal; 2018-04-16)
PROC: 0JBR0ZZ Excision of Left Foot Subcutaneous Tissue and Fascia, Open Approach (ICD-10-PCS; 2018-04-17)
PROC: 0JBN0ZZ Excision of Right Lower Leg Subcutaneous Tissue and Fascia, Open Approach (ICD-10-PCS; 2018-04-17)
PROC: 0JBQ0ZZ Excision of Right Foot Subcutaneous Tissue and Fascia, Open Approach (ICD-10-PCS; 2018-04-17)
PROC: 0JBP0ZZ Excision of Left Lower Leg Subcutaneous Tissue and Fascia, Open Approach (ICD-10-PCS; 2018-04-17)
PROC: 0JBR0ZZ Excision of Left Foot Subcutaneous Tissue and Fascia, Open Approach (ICD-10-PCS; 2018-04-20)
PROC: 0HXLXZZ Transfer Left Lower Leg Skin, External Approach (ICD-10-PCS; 2018-04-20)
PROC: 0JBP0ZZ Excision of Left Lower Leg Subcutaneous Tissue and Fascia, Open Approach (ICD-10-PCS; 2018-04-20)
DX: A41.9 Sepsis, unspecified organism (principal); N17.0 Acute kidney failure with tubular necrosis; L03.116 Cellulitis of left lower limb; L03.115 Cellulitis of right lower limb; I42.9 Cardiomyopathy, unspecified; L97.829 Non-pressure chronic ulcer of other part of left lower leg with unspecified severity; L97.819 Non-pressure chronic ulcer of other part of right lower leg with unspecified severity; E44.0 Moderate protein-calorie malnutrition; M32.9 Systemic lupus erythematosus, unspecified; J44.9 Chronic obstructive pulmonary disease, unspecified; I50.9 Heart failure, unspecified; H40.9 Unspecified glaucoma; M34.9 Systemic sclerosis, unspecified; G47.00 Insomnia, unspecified; B95.62 Methicillin resistant Staphylococcus aureus infection as the cause of diseases classified elsewhere; E03.9 Hypothyroidism, unspecified; E66.9 Obesity, unspecified; I87.2 Venous insufficiency (chronic) (peripheral); M79.7 Fibromyalgia; Z87.891 Personal history of nicotine dependence; Z68.34 Body mass index [BMI] 34.0-34.9, adult; Z90.49 Acquired absence of other specified parts of digestive tract; Z90.81 Acquired absence of spleen; Z79.51 Long term (current) use of inhaled steroids; Z79.82 Long term (current) use of aspirin; Z79.899 Other long term (current) drug therapy; Z88.2 Allergy status to sulfonamides; Z88.8 Allergy status to other drugs, medicaments and biological substances
CPT/HCPCS: 10040; 27000; 50010; 50101; 50386; 50403; 51412; 57091; 57119; 57120; 57141; 62110; 62900; 70005

== ENCOUNTER → 2018-05-03 | Outpatient (CLI) | payer OTHER ==
[~2018-05-03] MED LIST changes: +ACIDOPHILUS1 EAC4 PO; +NYSTATIN100000 UNI SWISH&SPIT; +VANCOMYCIN1 GM/1001 IV
== END ==
LOC: HYPER 04-17 07:59
DX: E11.622 Type 2 diabetes mellitus with other skin ulcer (principal); I87.333 Chronic venous hypertension (idiopathic) with ulcer and inflammation of bilateral lower extremity; L97.822 Non-pressure chronic ulcer of other part of left lower leg with fat layer exposed; L97.811 Non-pressure chronic ulcer of other part of right lower leg limited to breakdown of skin; L97.321 Non-pressure chronic ulcer of left ankle limited to breakdown of skin; E11.621 Type 2 diabetes mellitus with foot ulcer; L97.512 Non-pressure chronic ulcer of other part of right foot with fat layer exposed; E11.40 Type 2 diabetes mellitus with diabetic neuropathy, unspecified; E11.39 Type 2 diabetes mellitus with other diabetic ophthalmic complication; H40.9 Unspecified glaucoma; H42 Glaucoma in diseases classified elsewhere; E11.51 Type 2 diabetes mellitus with diabetic peripheral angiopathy without gangrene; M79.7 Fibromyalgia; E66.9 Obesity, unspecified; I25.10 Atherosclerotic heart disease of native coronary artery without angina pectoris; E03.9 Hypothyroidism, unspecified; K21.9 Gastro-esophageal reflux disease without esophagitis; I10 Essential (primary) hypertension; M19.90 Unspecified osteoarthritis, unspecified site; M32.10 Systemic lupus erythematosus, organ or system involvement unspecified; G47.30 Sleep apnea, unspecified; J44.9 Chronic obstructive pulmonary disease, unspecified; F41.9 Anxiety disorder, unspecified; F32.9 Major depressive disorder, single episode, unspecified; Z87.891 Personal history of nicotine dependence; Z86.718 Personal history of other venous thrombosis and embolism

== ENCOUNTER → 2018-05-21 | Outpatient (CLI) | payer OTHER ==
[~2018-05-21] MED LIST changes: +BACTRIM DS TAB1 EACH PO; -OXYCONTIN20 M1 PO; +OXYCONTIN30 MG PO
[2018-05-21 11:24] LABS: HEMATOCRIT 36.6 % (37.0-47.0); HEMOGLOBIN 12.2 gm/dL (12.0-15.0); MCH 30.2 pg (26.0-34.0); MCHC 33.4 g/dL (28.0-37.0); MCV 90.6 fL (80.0-100.0); PLATELET COUNT 396 thou/uL (150-400); RBC 4.04 mil/uL (4.20-5.00); RDW 14.6 % (10.5-14.5); WBC 10.5 thou/uL (4.0-11.0)
[2018-05-21 11:36] LABS: CALCIUM 9.4 mg/dL (8.5-10.1); POTASSIUM 3.2 mmol/L (3.5-5.1)
[2018-05-21 11:56] VITALS: BP 124/72
[2018-05-21 11:58] VITALS: BP 124/72
[2018-05-21 12:20] LABS: ABSOLUTE NEUTROPHILS 3.7 thou/uL (1.4-8.2)
== END ==
LOC: OPONC 05-17 13:31
PROVIDERS: Specialist
DX: I87.2 Venous insufficiency (chronic) (peripheral) (principal); A49.02 Methicillin resistant Staphylococcus aureus infection, unspecified site

== ENCOUNTER → 2018-05-24 | Outpatient (CLI) | payer OTHER ==
[2018-05-24 14:38] LABS: CALCIUM 8.8 mg/dL (8.5-10.1); POTASSIUM 3.5 mmol/L (3.5-5.1)
== END ==
LOC: HYPER
PROVIDERS: Specialist
DX: E11.622 Type 2 diabetes mellitus with other skin ulcer (principal); I87.333 Chronic venous hypertension (idiopathic) with ulcer and inflammation of bilateral lower extremity; L97.321 Non-pressure chronic ulcer of left ankle limited to breakdown of skin; E11.621 Type 2 diabetes mellitus with foot ulcer; L97.512 Non-pressure chronic ulcer of other part of right foot with fat layer exposed; L97.811 Non-pressure chronic ulcer of other part of right lower leg limited to breakdown of skin; L97.822 Non-pressure chronic ulcer of other part of left lower leg with fat layer exposed; E11.51 Type 2 diabetes mellitus with diabetic peripheral angiopathy without gangrene; E11.40 Type 2 diabetes mellitus with diabetic neuropathy, unspecified; E11.39 Type 2 diabetes mellitus with other diabetic ophthalmic complication; H40.9 Unspecified glaucoma; E66.9 Obesity, unspecified; G47.30 Sleep apnea, unspecified; I25.10 Atherosclerotic heart disease of native coronary artery without angina pectoris; J44.9 Chronic obstructive pulmonary disease, unspecified; K21.9 Gastro-esophageal reflux disease without esophagitis; M32.10 Systemic lupus erythematosus, organ or system involvement unspecified; M19.90 Unspecified osteoarthritis, unspecified site; F41.9 Anxiety disorder, unspecified; F32.9 Major depressive disorder, single episode, unspecified; Z87.891 Personal history of nicotine dependence; Z86.718 Personal history of other venous thrombosis and embolism; Z68.32 Body mass index [BMI] 32.0-32.9, adult

== ENCOUNTER 2018-05-29 13:21 | Inpatient (IN) | payer OTHER ==
[~2018-05-29] VITALS: Ht 172.7 cm; Wt 94.3 kg
--- NOTE | ~2018-05-29 | HC ---
[facility] [address] [address] CONSULTATION Name: KERRIJORGITO A Room #: 361-P [facility] IN ..#: [id number] Admission: 05/29/18 Attend Phys: Clair Wisdom Discharge: 06/01/18 Date of : 56 Report #: [id number] THIS REPORT FOR: //name// CC: Bryon Wisdom DATE OF SERVICE: 05/30/2018 REASON FOR CONSULTATION: Venous stasis disease of bilateral lower extremities with chronic ulcerations with cellulitis. HISTORY OF PRESENT ILLNESS: The patient is a 62-year-old woman, very well known to the wound care team from previous care. She has had previous debridements of her lower extremities. She is admitted with severe venous stasis of bilateral lower extremities with inflammation and ulcerations with large chronic ulcers and cellulitis. The wounds are quite painful. The patient also carries a diagnosis of systemic lupus erythematosus and scleroderma. She also has fibromyalgia. Previously had MRSA. After 5 weeks of IV antibiotic therapy, she was switched to Bactrim. The patient at home has had increased pain, swelling, drainage, redness of the legs, warranting hospital admission. Laboratories at this time, white count 10.3. Wound care team was asked to see her in consultation due to her severe venous stasis ulcers and cellulitis. ALLERGIES: TO HYDROMORPHONE, PHENYTOIN, AND DEMEROL. MEDICATIONS: Include albuterol, oxycodone, Mirapex, Zyvox, Xarelto, torsemide, fluticasone, aspirin, Protonix, gabapentin, Humalog insulin, atenolol, Zofran, nitroglycerin. REVIEW OF SYSTEMS: The patient is very debilitated, difficulty getting around. PAST MEDICAL AND SURGICAL HISTORY: Includes lupus, scleroderma, COPD, restrictive lung disease, cardiomyopathy, Graves' disease, glaucoma, cataracts, cholecystectomy and tonsillectomy. PHYSICAL EXAMINATION: GENERAL: Shows a chronically ill-appearing woman appearing her stated age of 62. She appears to be in some painful distress. HEENT: Mucous membranes are moist. NECK: Supple. HEART: Shows regular rate and rhythm. ABDOMEN: Soft. EXTREMITIES: Examination of the lower extremities shows edema of both legs with redness below the knees. There is evidence of chronic venous insufficiency with inflammation and large ulcers are present of bilateral lower extremities. These have a dense exudate on them. Listing of wounds show left lateral ankle ulcer [address] [address] CONSULTATION Name: JORGITO MANNING Philomena Room #: 361-P [facility] IN ..#: [id number] Admission: 05/29/18 Attend Phys: Clair Wisdom Discharge: 06/01/18 Date of : 57 Report #: [id number] measuring 4.1 x 4 cm, also the right norton measuring 2.4 x 1.9 cm, right lateral norton measuring 6 x 9 cm, wound to the right lateral ankle and the right foot measuring 3 x 1.1 cm. These multiple large wounds all have a dense exudate. She also has a ulcer of the left leg measuring 7 x 8 cm. These have a dense heavy exudate and are very tender. IMPRESSION: 1. Chronic venous stasis with inflammation and ulceration. 2. Cellulitis of bilateral lower extremities. 3. History of peripheral vascular disease of lower extremities. 4. Debility and immobility. 5. History of methicillin-resistant Staphylococcus aureus. PLAN: Wounds will be dressed with nonadherent Xeroform dressings. We will consult General Surgery, Dr. Lonnie Spencer for consideration of OR debridement with Misonix OR debridement. This has to be done under anesthesia as the ulcers are quite tender. We will continue IV antibiotics. Wound cultures done. Wound care team will follow. <ELECTRONICALLY SIGNED> By: Brian Lopez MD 06/02/18 1549 1548 1709 Brian Lopez MD /nt
--- NOTE | ~2018-05-29 | HC ---
[facility] [address] [place] [address] CONSULTATION Name: JORGITO MANNING Philomena Room #: 360-P [facility] IN M.R.#: [id number] Admission: 05/29/18 Attend Phys: Clair Wisdom Discharge: Date of : 57 Report #: [id number] THIS REPORT FOR: //name// CC: Odin Parra DATE OF SERVICE: 05/29/2018 REASON FOR CONSULTATION: I was asked to evaluate concerning bilateral lower extremity venous stasis disease and secondary infection. HISTORY OF PRESENT ILLNESS: The patient is a 62-year-old with venous stasis disease with ulcerations and has been on treatment for a wound infection. Initially seen first week of April during that hospitalization. She had very painful wounds to both lower extremities. In addition, she carries a diagnosis of systemic lupus erythematosus with scleroderma features. She has fibromyalgia. Cultures had revealed MRSA. Initially treated with vancomycin. Had improvement initially. She had undergone debridement of these ulcers with artificial grafting to both lower extremities. After 5 weeks of IV antibiotic therapy, she was switched to Bactrim. She was on Bactrim now for 1 week. Four days ago, she underwent some venous ablation procedure and subsequently has had increased pain, erythema and swelling. No documented fever, chills or sweats. REVIEW OF SYSTEMS: Notes no other cardiopulmonary, GI or complaints. ALLERGIES: HYDROMORPHONE, PHENANTOIN, DEMEROL. MEDICATIONS: As noted on her MAR including the Bactrim. PAST MEDICAL HISTORY: Lupus, scleroderma, COPD, restrictive lung disease, cardiomyopathy, Graves' disease, glaucoma, cataracts, cholecystectomy, tonsillectomy. FAMILY HISTORY: Noncontributory. SOCIAL HISTORY: Past smoker. No significant alcohol intake. PHYSICAL EXAMINATION: VITAL SIGNS: She is afebrile, hemodynamically stable. GENERAL: Alert and cooperative and pleasant, in no acute distress. HEENT: Unremarkable with no oral mucosal lesions. NECK: Supple, with no thyromegaly or mass. LUNGS: Clear. HEART: Regular, without murmur. ABDOMEN: Obese, soft and nontender. EXTREMITIES: Bilateral lower extremities had venous stasis dermatitis changes [facility] [address] [place] [address] CONSULTATION Name: JORGITO MANNING Room #: 360-P [facility] IN ..#: [id number] Admission: 05/29/18 Attend Phys: Clair Wisdom Discharge: Date of : 57 Report #: [id number] with erythema. She had bilateral foot wounds and lower leg wounds. There was some purulent material evident on the left. She had erythema that extended up her lower legs to midcalf region. No tender adenopathy in the groin. She had good capillary refill and sensation was intact. LABORATORY STUDIES: Sodium 137, potassium 3.4. Creatinine 1, alkaline phosphatase 128. Liver function test normal. Hemoglobin 12, WBC 10, platelet count was 400,000. IMPRESSION: Venous stasis dermatitis and venous stasis ulcers with secondary infection methicillin resistant Staphylococcus aureus. Has had worsening since her venous ablation procedures. Still has significant amount of edema. PLAN: Recommend continuing with vancomycin, leg elevation. Wound care to continue. We will see how she looks after 12 hours of elevation and reevaluate next approach to her care. <ELECTRONICALLY SIGNED> By: Shadi Del Valle MD 05/30/18 1159 18 51 Shadi Del Valle MD /nt
[2018-05-29] MEDS ORDERED: DEMADEX20 MG PO (16:16)
[2018-05-29 16:24] VITALS: BP 110/66
[2018-05-29] MEDS ORDERED: XARELTO1 EACH PO (17:06)
[2018-05-29 17:43] LABS: HEMOGLOBIN 12.1 gm/dL (12.0-15.0); MCH 30.6 pg (26.0-34.0); MCHC 33.6 g/dL (28.0-37.0); MCV 90.9 fL (80.0-100.0); RBC 3.96 mil/uL (4.20-5.00); RDW 14.7 % (10.5-14.5); WBC 10.3 thou/uL (4.0-11.0)
[2018-05-29 17:52] LABS: CALCIUM 8.9 mg/dL (8.5-10.1); POTASSIUM 3.4 mmol/L (3.5-5.1)
[2018-05-29 17:58] LABS: ALBUMIN 2.9 g/dL (3.4-5.0); TOTAL BILIRUBIN 0.6 mg/dL (<0.1-1.0); TOTAL PROTEIN 7.8 g/dL (6.4-8.2)
[2018-05-29 18:54] LABS: URINE BILIRUBIN NEGATIVE (Negative); URINE BLOOD NEGATIVE (Negative); URINE CLARITY CLEAR; URINE COLOR YELLOW; URINE GLUCOSE-RANDOM* NEGATIVE (Negative); URINE KETONES NEGATIVE (Negative); URINE LEUKOCYTES NEGATIVE (Negative); URINE NITRITE NEGATIVE (Negative); URINE PROTEIN (DIPSTICK) NEGATIVE (Negative); URINE SPECIFIC GRAVITY >= 1.030 (1.005-1.035); URINE UROBILINOGEN 0.2 E.U./dl (0.2-1.0)
[2018-05-29 20:00] VITALS: BP 133/90
[2018-05-29 20:10] VITALS: BP 124/69
[2018-05-29 23:14] VITALS: BP 99/57
[2018-05-30 03:49] VITALS: BP 110/67
[2018-05-30 08:21] VITALS: BP 111/69
[2018-05-30 15:47] VITALS: BP 121/73
[2018-05-30 21:30] VITALS: BP 101/60
[2018-05-31 04:40] VITALS: BP 112/64
[2018-05-31 05:39] LABS: HEMATOCRIT 33.8 % (37.0-47.0); HEMOGLOBIN 11.1 gm/dL (12.0-15.0); MCHC 32.8 g/dL (28.0-37.0); MCV 91.4 fL (80.0-100.0); PLATELET COUNT 410 thou/uL (150-400); RDW 14.5 % (10.5-14.5); WBC 10.1 thou/uL (4.0-11.0)
[2018-05-31 06:02] LABS: ALBUMIN 2.8 g/dL (3.4-5.0); CALCIUM 8.5 mg/dL (8.5-10.1); CREATININE 1.1 mg/dL (0.6-1.0); POTASSIUM 5.2 mmol/L (3.5-5.1); TOTAL BILIRUBIN 0.4 mg/dL (<0.1-1.0); TOTAL PROTEIN 6.8 g/dL (6.4-8.2)
[2018-05-31 06:36] LABS: ABSOLUTE NEUTROPHILS 3.3 thou/uL (1.4-8.2); PLATELET ESTIMATE INCREASED
[2018-05-31 08:00] VITALS: BP 91/42
[2018-05-31 17:13] VITALS: BP 89/52
[2018-05-31 20:00] VITALS: BP 100/36
[2018-06-01 00:15] VITALS: BP 95/54
[2018-06-01 04:50] VITALS: BP 111/74
[2018-06-01 08:11] VITALS: BP 114/85
[2018-06-01] MEDS ORDERED: LINEZOLID600 MG PO (09:52)
[2018-06-01 11:37] VITALS: BP 114/85
[2018-06-01 16:34] VITALS: BP 128/50
== END 2018-06-01 17:55 | disposition home health service (06) | DRG 570 ==
LOC: 3W 13:21
PROVIDERS: Hospitalist; Internal Medicine
PROC: 0JBQ0ZZ Excision of Right Foot Subcutaneous Tissue and Fascia, Open Approach (ICD-10-PCS; 2018-05-29)
PROC: 0JBR0ZZ Excision of Left Foot Subcutaneous Tissue and Fascia, Open Approach (ICD-10-PCS; principal; 2018-06-01)
DX: L03.116 Cellulitis of left lower limb (principal); E43 Unspecified severe protein-calorie malnutrition; I42.9 Cardiomyopathy, unspecified; L03.115 Cellulitis of right lower limb; I87.8 Other specified disorders of veins; J44.9 Chronic obstructive pulmonary disease, unspecified; E05.00 Thyrotoxicosis with diffuse goiter without thyrotoxic crisis or storm; H40.9 Unspecified glaucoma; I87.2 Venous insufficiency (chronic) (peripheral); A49.02 Methicillin resistant Staphylococcus aureus infection, unspecified site; I73.9 Peripheral vascular disease, unspecified; I50.9 Heart failure, unspecified; M34.9 Systemic sclerosis, unspecified; G47.00 Insomnia, unspecified; E21.3 Hyperparathyroidism, unspecified; G62.9 Polyneuropathy, unspecified; I48.2 Chronic atrial fibrillation; M32.9 Systemic lupus erythematosus, unspecified; Z79.899 Other long term (current) drug therapy; Z88.6 Allergy status to analgesic agent; Z88.8 Allergy status to other drugs, medicaments and biological substances; Z98.49 Cataract extraction status, unspecified eye; Z90.49 Acquired absence of other specified parts of digestive tract; Z87.891 Personal history of nicotine dependence
CPT/HCPCS: 10779; 50010; 50101; 50386; 57091; 57119; 57120; 62110; 62900; 70005

== ENCOUNTER → 2018-06-08 | Outpatient (CLI) | payer OTHER ==
[~2018-06-08] MED LIST changes: +DEMADEX20 MG PO; +LINEZOLID600 MG PO; +XARELTO1 EACH PO
[2018-06-08 08:45] VITALS: BP 111/60
[2018-06-08 09:04] LABS: HEMATOCRIT 35.6 % (37.0-47.0); HEMOGLOBIN 11.6 gm/dL (12.0-15.0); MCH 30.1 pg (26.0-34.0); MCHC 32.8 g/dL (28.0-37.0); RBC 3.86 mil/uL (4.20-5.00); RDW 14.8 % (10.5-14.5); WBC 11.7 thou/uL (4.0-11.0)
[2018-06-08 09:11] LABS: CALCIUM 8.9 mg/dL (8.5-10.1); POTASSIUM 3.9 mmol/L (3.5-5.1)
[2018-06-08 09:17] LABS: ALBUMIN 2.7 g/dL (3.4-5.0); TOTAL BILIRUBIN 0.4 mg/dL (<0.1-1.0); TOTAL PROTEIN 7.5 g/dL (6.4-8.2)
== END ==
LOC: OPONC 05-28 00:37
PROVIDERS: Specialist
DX: L97.821 Non-pressure chronic ulcer of other part of left lower leg limited to breakdown of skin (principal); L97.811 Non-pressure chronic ulcer of other part of right lower leg limited to breakdown of skin; I87.2 Venous insufficiency (chronic) (peripheral); A49.02 Methicillin resistant Staphylococcus aureus infection, unspecified site; M32.9 Systemic lupus erythematosus, unspecified; M34.9 Systemic sclerosis, unspecified
CPT/HCPCS: 91016

== ENCOUNTER → 2018-06-21 | Outpatient (CLI) | payer OTHER ==
[2018-06-21 09:50] VITALS: BP 122/75
[2018-06-21 11:04] LABS: HEMATOCRIT 39.5 % (37.0-47.0); MCH 29.9 pg (26.0-34.0); MCV 90.6 fL (80.0-100.0); RBC 4.36 mil/uL (4.20-5.00); RDW 14.9 % (10.5-14.5); WBC 10.7 thou/uL (4.0-11.0)
[2018-06-21 11:27] LABS: ALBUMIN 3.3 g/dL (3.4-5.0); CALCIUM 8.9 mg/dL (8.5-10.1); CREATININE 0.9 mg/dL (0.6-1.0); POTASSIUM 3.5 mmol/L (3.5-5.1); TOTAL BILIRUBIN 0.4 mg/dL (<0.1-1.0); TOTAL PROTEIN 7.7 g/dL (6.4-8.2)
== END ==
LOC: OPONC 06-15 00:23
PROVIDERS: Specialist
DX: S81.802D Unspecified open wound, left lower leg, subsequent encounter (principal); S81.801D Unspecified open wound, right lower leg, subsequent encounter; I87.2 Venous insufficiency (chronic) (peripheral); M32.9 Systemic lupus erythematosus, unspecified; M34.9 Systemic sclerosis, unspecified; X58.XXXD Exposure to other specified factors, subsequent encounter
CPT/HCPCS: 91016

== ENCOUNTER → 2018-06-21 | Outpatient (CLI) | payer OTHER | LOC: HYPER 00:28 | DX: T81.89XD Other complications of procedures, not elsewhere classified, subsequent encounter (principal); E11.622 Type 2 diabetes mellitus with other skin ulcer; I87.333 Chronic venous hypertension (idiopathic) with ulcer and inflammation of bilateral lower extremity; L97.822 Non-pressure chronic ulcer of other part of left lower leg with fat layer exposed; L97.811 Non-pressure chronic ulcer of other part of right lower leg limited to breakdown of skin; L97.321 Non-pressure chronic ulcer of left ankle limited to breakdown of skin; E11.621 Type 2 diabetes mellitus with foot ulcer; L97.512 Non-pressure chronic ulcer of other part of right foot with fat layer exposed; L97.521 Non-pressure chronic ulcer of other part of left foot limited to breakdown of skin; E11.40 Type 2 diabetes mellitus with diabetic neuropathy, unspecified; E11.39 Type 2 diabetes mellitus with other diabetic ophthalmic complication; H40.9 Unspecified glaucoma; H42 Glaucoma in diseases classified elsewhere; E11.51 Type 2 diabetes mellitus with diabetic peripheral angiopathy without gangrene; E66.9 Obesity, unspecified; I25.10 Atherosclerotic heart disease of native coronary artery without angina pectoris; E03.9 Hypothyroidism, unspecified; G47.30 Sleep apnea, unspecified; K21.9 Gastro-esophageal reflux disease without esophagitis; M19.90 Unspecified osteoarthritis, unspecified site; M79.7 Fibromyalgia; M32.10 Systemic lupus erythematosus, organ or system involvement unspecified; J44.9 Chronic obstructive pulmonary disease, unspecified; F41.9 Anxiety disorder, unspecified; F32.9 Major depressive disorder, single episode, unspecified; Z86.718 Personal history of other venous thrombosis and embolism; Z87.891 Personal history of nicotine dependence; Z68.32 Body mass index [BMI] 32.0-32.9, adult; Y83.8 Other surgical procedures as the cause of abnormal reaction of the patient, or of later complication, without mention of misadventure at the time of the procedure ==

== ENCOUNTER → 2018-08-07 | Outpatient (CLI) | payer OTHER | LOC: HYPER 07-19 06:45 | DX: T81.89XD Other complications of procedures, not elsewhere classified, subsequent encounter (principal); E11.622 Type 2 diabetes mellitus with other skin ulcer; I87.333 Chronic venous hypertension (idiopathic) with ulcer and inflammation of bilateral lower extremity; L97.822 Non-pressure chronic ulcer of other part of left lower leg with fat layer exposed; L97.321 Non-pressure chronic ulcer of left ankle limited to breakdown of skin; E11.621 Type 2 diabetes mellitus with foot ulcer; L97.512 Non-pressure chronic ulcer of other part of right foot with fat layer exposed; E11.51 Type 2 diabetes mellitus with diabetic peripheral angiopathy without gangrene; E11.40 Type 2 diabetes mellitus with diabetic neuropathy, unspecified; E11.39 Type 2 diabetes mellitus with other diabetic ophthalmic complication; H40.9 Unspecified glaucoma; E66.9 Obesity, unspecified; E05.00 Thyrotoxicosis with diffuse goiter without thyrotoxic crisis or storm; G47.30 Sleep apnea, unspecified; I25.10 Atherosclerotic heart disease of native coronary artery without angina pectoris; I10 Essential (primary) hypertension; J44.9 Chronic obstructive pulmonary disease, unspecified; K90.0 Celiac disease; K21.9 Gastro-esophageal reflux disease without esophagitis; M19.90 Unspecified osteoarthritis, unspecified site; M32.10 Systemic lupus erythematosus, organ or system involvement unspecified; F41.9 Anxiety disorder, unspecified; F32.9 Major depressive disorder, single episode, unspecified; Z87.891 Personal history of nicotine dependence; Z86.718 Personal history of other venous thrombosis and embolism; Y83.8 Other surgical procedures as the cause of abnormal reaction of the patient, or of later complication, without mention of misadventure at the time of the procedure ==

== ENCOUNTER 2018-09-03 15:38 | Inpatient (IN) | payer OTHER ==
[~2018-09-03] VITALS: Ht 172.7 cm; Wt 101.6 kg
[2018-09-03 16:36] VITALS: BP 139/78
[2018-09-03 16:47] LABS: HEMATOCRIT 39.5 % (37.0-47.0); HEMOGLOBIN 12.9 gm/dL (12.0-15.0); MCH 29.4 pg (26.0-34.0); MCHC 32.8 g/dL (28.0-37.0); MCV 89.8 fL (80.0-100.0); RBC 4.39 mil/uL (4.20-5.00); RDW 14.2 % (10.5-14.5); WBC 13.3 thou/uL (4.0-11.0)
[2018-09-03 16:53] LABS: CALCIUM 9.5 mg/dL (8.5-10.1); CREATININE 0.9 mg/dL (0.6-1.0); POTASSIUM 3.3 mmol/L (3.5-5.1)
--- NOTE | 2018-09-03 18:22 | NUR ---
PATIENT ADMITTED TO ROOM 428, ORDERS DR. WHITFIELD, AT 1615 FOR BL LE CELLULITIS AND LYMPHEDEMA. IN EXTREME PAIN AT TIME OF ADMISSION. DR. AGUSTIN ORDERED MORPHINE 4 MG IV PUSH, ADMINISTERED FIRST DOSE AT ABOUT 1630, ALSO ADMINISTERED HYDROCODONE 2 TABS PER ORDER. CONSULTED, LEFT MESSAGE WITH ANSWERING SERVICE. PATIENT GAVE NURSE HOME MEDICATIONS; NOT ORDERED BY DR. AGUSTIN YET. NURSE PAGING DR. AGUSTIN FOR FURTHER MEDICATION ORDERS.
[2018-09-03 20:30] VITALS: BP 94/67
--- NOTE | 2018-09-03 23:15 | NUR ---
CERTIFIED ART THERAPIST INITIATED FOR POSSIBLE MEDICATION REACTION. PT STATED SHE FELT SOA, ITCHY AFTER IV ZOSYN INITIATED. WENT FROM RA TO 5L 02 WITH SATS IN LOW 90S. MD CALLED WITH ORDERS RECEIVED. RT ADMINISTERED BREATHING TREATMENT AND IV MEDS GIVEN. SEE EMAR FOR DOCUMENTATION. PLACED ON VENTIMASK AT 50% BUT ABLE TO DECREASE TO 35% O2 AFTER SEVERAL MINUTES. PT STATES SHE FEELS BETTER. REMAINED ON THE UNIT. SEE RAPID INTERVENTION FOR DETAILS.
[2018-09-04] MEDS ORDERED: PERCOCET 10-321 EACH PO (01:44)
[2018-09-04 03:55] VITALS: BP 101/52
--- NOTE | 2018-09-04 05:52 | NUR ---
rapid response called for possible reaction to Zosyn at 2245. refer to this documentation, flowsheet. at 2338, i reassessed patient. she was alert, oriented x 4. able to breathe without difficulty. removed mask, placed her on 2liters nc which patient frequently removes. pulse ox 98% on room air however. this morning, patient ambulating in [place] using her walker. PCXR unremarkable. no respiratory symptoms. PO PRN hydrocodone effective for pain.
[2018-09-04 05:54] LABS: HEMATOCRIT 39.4 % (37.0-47.0); HEMOGLOBIN 12.7 gm/dL (12.0-15.0); MCH 28.8 pg (26.0-34.0); MCHC 32.3 g/dL (28.0-37.0); MCV 89.2 fL (80.0-100.0); RBC 4.42 mil/uL (4.20-5.00); RDW 14.2 % (10.5-14.5); WBC 7.5 thou/uL (4.0-11.0)
[2018-09-04 06:09] LABS: CALCIUM 9.3 mg/dL (8.5-10.1); CREATININE 1.2 mg/dL (0.6-1.0); POTASSIUM 3.8 mmol/L (3.5-5.1)
[2018-09-04 08:02] VITALS: BP 112/53
--- NOTE | 2018-09-04 12:53 | NUR ---
WOUND CONSULT; ROUNDING WITH DR CHANTELLE LOUIS TODAY. THE WOUNDS WERE ASSESSED AND A WOUND CULTURE WAS OBTAINED FROM THE RIGHT FOOT AREA. RECOMMENDATIONS; CONTINUE WITH 07/13 ELSIE TURPIN ABD, KERLIX. DISCUSSSED WITH JAY
--- NOTE | 2018-09-04 15:53 | HC ---
[facility] [address] [address] CONSULTATION Name: JORGITO MANNING Room #: 428-P ADM IN M.R.#: [id number] Admission: 09/03/18 ������������������ Attend Phys: Odin Rudolph MD Discharge: ������������������ Date of : 57 Report #: [id number] THIS REPORT FOR: //name// CC: Odin Parra DATE OF SERVICE: 09/03/2018 INFECTIOUS DISEASES CONSULTATION REASON FOR CONSULTATION: I was asked to evaluate concerning bilateral lower extremity wound infections. HISTORY OF PRESENT ILLNESS: The patient was a 63-year-old known from her previous hospitalizations with chronic venous stasis disease and ulcerations which are very painful for her. She also carries a diagnosis of systemic lupus erythematosus with scleroderma features. She has underlying fibromyalgia. Previous cultures over the last several years have grown MRSA and Pseudomonas as well as Enterococcus. She was treated in June of this past year with an extended course of antibiotic therapy for MRSA. She has also been undergoing further vascular procedures for ablation of the venous system. She actually had some vein ablation procedures performed in the last week. Over the last several days, she has noticed increased erythema, swelling, pain and progressive wounds. Temperature up to 99-100 degrees. No chills or sweats. No nausea or vomiting. She has been on no recent antibiotics. REVIEW OF SYSTEMS: Denies any cardiopulmonary, GI or complaints. She has been anorexic, but no specific weight loss. A 10-point review was otherwise negative. ALLERGIES: HYDROMORPHONE, DEMEROL AND PHENYTOIN. MEDICATIONS: As noted on her MAR, now on vancomycin. PAST MEDICAL HISTORY: Lupus, scleroderma, COPD, restrictive lung disease, cardiomyopathy, Graves' disease, glaucoma, cataracts, cholecystectomy, tonsillectomy, venous stasis and venous insufficiency. FAMILY HISTORY: Noncontributory. SOCIAL HISTORY: Past smoker. No significant alcohol intake. PHYSICAL EXAMINATION: VITAL SIGNS: She was afebrile and hemodynamically stable. GENERAL: She was alert and cooperative, sitting up to side of the bed, crying because of her lower extremity pain. She was obese. [facility] [address] [place] [address] CONSULTATION Name: JORGITO MANNING Philomena Room #: 428-P [facility] IN M.R.#: [id number] Admission: 09/03/18 ������������������ Attend Phys: Odin Rudolph MD Discharge: ������������������ Date of : 56 Report #: [id number] SKIN: Unremarkable, other than what was described in her extremity examination. LYMPHATIC: Without palpable adenopathy. HEENT: Eyes, without scleral icterus. Mouth without mucositis. NECK: Supple, with no thyromegaly or mass. CHEST: Clear. HEART: Regular, without murmur. ABDOMEN: Soft and nontender. She had a ventral hernia, which was reducible. EXTREMITIES: She had bilateral lower extremity venous stasis dermatitis changes with bright red skin from mid-calf below. She had multiple full-thickness wounds to both feet and lower extremities. There was serous drainage from these wounds. There was some eschar and fibrinous debris at most of the bases of these wounds. Legs were exquisitely tender. She has had good capillary refill. Pulses were palpable. Skin was hypersensitive. Strength was unremarkable. Sensation intact. PSYCHIATRIC: Mood normal. GENITAL AND RECTAL EXAMINATION: Not performed. LABORATORY DATA: Sodium 136, potassium 3.3, bicarbonate 25 and creatinine 0.9. Hemoglobin 12.9, white count 13.3 and platelet count 395,000. No cultures yet available. IMPRESSION: 1. A 63-year-old with venous stasis disease of both lower extremities, associated venous stasis ulcers with secondary cellulitis and wound infections. Previous cultures had revealed methicillin-resistant Staphylococcus aureus and Pseudomonas in the past. I would be concerned about healthcare-associated organisms considering her previous surgical interventions. 2. There is a component of arterial insufficiency as well. I reviewed her previous arterial studies. 3. Underlying lupus and scleroderma skin disease. 4. Hyperesthesia and chronic pain syndrome. RECOMMENDATIONS: We will begin broad antibiotic coverage for MRSA and Pseudomonas. Repeat cultures of her wounds, if not done yet and continue with aggressive wound care. ��������������������������������������������� <ELECTRONICALLY SIGNED> ���������������������������������������� By: Shadi Del Valle MD ��������������������������������������������� 09/04/18 1553 [id number] Shadi Del Valle MD /nt
[2018-09-04 16:06] VITALS: BP 128/61
--- NOTE | 2018-09-04 16:10 | NUR ---
INITIAL ASSESSMENT: Pt evaluated for d/c planning needs. Reviewed chart and spoke with nurse and pt. Pt is alert and oriented. Pt lives alone and was independent with ADL's prior to admission. Pt was hospitalized last year and returned home with [facility]. Pt said her father about a week before [place] and her mother about a week after [place]. Pt said her brothers are arguing about their parents' belongings. Pt said she has no children, but has an adopted daughter who lives out of the area. Dtr has medical issues, so is not able to assist pt. Pt has walker, cane, wheelchair, oxygen and BiPAP. Pt said her BiPAP is broken. Will contact Tarun re: BiPAP. Pt has homemaker service through [facility] 5 days/week, 3.5 hours/day. Pt plans on returning home on d/c from hospital. Will remain available to assist as needed.
--- NOTE | 2018-09-04 17:08 | NUR ---
PT ASSESSED AT START OF SHIFT. PT SEEN BY DR. ESTRELLA AND LOWER LEGS DRESSINGS CHANGED PER WD RN. PLAN FOR SURGEON TO DO DEBRIDEMENT TOMORROW. PT UP TO THE CHAIR AND AMBULATING W/ WALKER. PAIN MEDS GIVEN W/ SOME RELIEF.
[2018-09-04 19:50] VITALS: BP 114/70
[2018-09-05 05:59] VITALS: BP 115/53
--- NOTE | 2018-09-05 06:16 | NUR ---
NPO SINCE MIDNIGHT. DOES NOT TAKE A BETA CESAR. REFUSED PRE OP BATH. UP IN ROOM USING WALKER. GIVEN PRN HYDROCODONE IN ADDITION TO SCHEDULED OXYCONTIN. ADEQUATE RELIEF OF PAIN THROUGH NIGHT.
[2018-09-05 07:51] VITALS: BP 122/69
--- NOTE | 2018-09-05 08:16 | NUR ---
PATIENT BEING TAKEN TO SURGERY AT THIS TIME FOR LE'S DEBRIDEMENT.
[2018-09-05 16:15] VITALS: BP 96/45
[2018-09-05 19:45] VITALS: BP 107/61
--- NOTE | 2018-09-06 01:54 | NUR ---
PT WAS OBSERVED SITTING UP BY BED SIDE AT START OF SHIFT.PT C/O PAIN ON HER BLE,MANAGED WITH IV AND PO MED,PARTIAL PAIN RELIEF VOICED.BLE ELEVATED WITH PILLOW WHILE IN BED.PT RESTING ON HER BED AT THIS TIME.CALL LIGHT WITHIN REACH.
[2018-09-06 05:03] VITALS: BP 135/53
--- NOTE | 2018-09-06 10:16 | HC ---
[facility] [address] [place] [address] CONSULTATION Name: JORGITO MANNING Room #: 428-P ADM IN .R.#: [id number] Admission: 09/03/18 ������������������ Attend Phys: Odin Rudolph MD Discharge: ������������������ Date of : 56 Report #: [id number] THIS REPORT FOR: //name// CC: Odin Parra DATE OF SERVICE: 09/04/2018 HISTORY OF PRESENT ILLNESS: This is a 63-year-old female patient with a history of venous type ulcerations, bilateral lower extremity. She was seen in the clinic with worsening drainage, pain, swelling, and redness of her legs and is admitted for aggressive wound therapy and antibiotic therapy. The patient is complaining of significant pain in her legs that has been worsening gradually despite outpatient therapy. PAST MEDICAL HISTORY: She is status post splenectomy and cholecystectomy, history of lupus, scleroderma, restrictive lung disease, COPD, congestive heart failure, hypothyroidism, glaucoma, multiple hernia repairs, venous ulcerations and stasis dermatitis of lower extremities, atrial fibrillation. SOCIAL HISTORY: The patient is a former smoker. Admits to occasional alcohol use, no drug use. FAMILY HISTORY: Noncontributory. ALLERGIES: MEPERIDINE, SULFA, HYDROMORPHONE, and DILANTIN. MEDICATIONS: Include Zyvox, acidophilus, oxycodone, pantoprazole, Advair, AccuNeb, Mirapex, Aricept, ProAir, Combivent, Zanaflex, Neurontin, Tenormin, K-Dur, bumetanide, Demadex, Xarelto, Colace, Flonase, aspirin, Benadryl, oxycodone. REVIEW OF SYSTEMS: CONSTITUTIONAL: The patient does complain of mild fever, chills. Denies recent weight loss. NEUROLOGICAL: The patient denies focal weakness, numbness or tingling. EYES: The patient denies visual changes, redness or drainage. ENT: The patient denies earache, nasal drainage, sore throat. CARDIOVASCULAR: The patient denies chest pain, palpitations, diaphoresis. PULMONARY: The patient denies cough or shortness of breath. GASTROINTESTINAL: The patient denies nausea, vomiting or abdominal pain. ORTHOPEDIC: The patient complains of pain, swelling, redness and ulceration of both lower extremities. Other systems in a 14-point review of systems are negative. PHYSICAL EXAMINATION: [facility] [address] [place] [address] CONSULTATION Name: JORGITO MANNING Room #: 428-P [facility] IN [facility]#: [id number] Admission: 09/03/18 ������������������ Attend Phys: Odin Rudolph MD Discharge: ������������������ Date of : 56 Report #: [id number] VITAL SIGNS: At this time include temperature 98.0, pulse 84, respiratory rate 18, blood pressure 101/52. GENERAL: This is a chronically ill-appearing female patient who appears to be in moderate discomfort. HEENT: Head normocephalic. Nose and throat are clear. NECK: Supple. LUNGS: Clear. HEART: . ABDOMEN: Soft. Bowel sounds present. EXTREMITIES: Lower extremities demonstrate palpable distal pulses. She has 3+ edema, redness from her feet up to her knees, warmth and tenderness consistent with cellulitis. The ulcerations have a thick yellow-green exudate on the surface and are very tender to palpation. NEUROLOGIC: The patient is alert, oriented and appropriate. LABORATORY DATA: Includes sodium 136, potassium 3.3, chloride 100, CO2 25, BUN 13, creatinine 0.9, glucose 94, albumin last checked in June was 3.3. White blood cell count is 13.3 with a hemoglobin of 12.9, hematocrit of 39.5. Culture and sensitivities have been obtained from the wound base and are pending at this time. CLINICAL IMPRESSION: 1. Cellulitis, bilateral lower extremities. 2. Venous type ulcerations, bilateral lower extremities with wound infection. 3. Venous stasis dermatitis. 4. Chronic atrial fibrillation. 5. History of congestive heart failure. 6. Hyperparathyroidism. RECOMMENDATIONS: The patient is started empirically on intravenous vancomycin. We will start with wound care with Silvadene, morphine, Xeroform, ABD, Kerlix and Ye wraps, elevation of the extremities. Cultures have been obtained. We will consult Surgery for Misonix's type debridement of all the ulcerations and hopefully then begin with more compression therapy once we have the cellulitis under control. I appreciate being asked to see her in the hospital in consultation. ��������������������������������������������� <ELECTRONICALLY SIGNED> ���������������������������������������� By: Dar Skinner MD ��������������������������������������������� 09/06/18 1016 [id number] Dar Skinner MD /nt
--- NOTE | 2018-09-06 10:56 | NUR ---
ASSUMED PATIENT AND CARES AT 0715, IN BED SLEEPING, EASILY ARROUSED, RECEIVED PRN PAIN MEDICATION PRIOR TO CHANGE OF SHIFT CAUSING LETHARGY, IV SALINE LOCK TO RIGHT FOREARM INTACT, BLE WRAPPED WITH KERLIX TOE TO KNEE, PERSONAL BELONGINGS AND CALL LIGHT IN REACH, WILL CONTINUE TO MONITOR
--- NOTE | 2018-09-06 15:59 | NUR ---
WOUND FOLLOW UP: PT. WAS SEEN TODAY BY DR. LOUIS AND MYSELF. PT. HAD MYSONIC DEBRIDEMENT OF WOUND TO LOWER EXTREMITYS YESTERDAY IN THE OR BY DR. ENRIQUE. PT. WOUNDS TODAY ARE CLINICALLY BETTER BUT, PT. IS IN A GREAT DEAL OF PAIN. RECOMMENDATIONS: CONTINUE WITH CURRENT PLAN OF CARE. PT. AND STAFF NURSE WERE INSTRUCTED ON PLAN OF CARE.
[2018-09-06 16:19] LABS: CALCIUM 9.2 mg/dL (8.5-10.1); CREATININE 0.9 mg/dL (0.6-1.0); POTASSIUM 4.6 mmol/L (3.5-5.1)
--- NOTE | 2018-09-06 18:18 | NUR ---
PATIENT LEFT UNIT FOR ANGIOGRAM AND RETURNED, NEW ORDERS ACKNOWLEDGED, SITE CHECKED PER PROTOCOL, SITE INTACT, DRESSING TO SITE C/D/I, PATIENT SCHEDULED GABAPENTIN HELD DUE TO PATIENT NOT FULLY ALERT AT THIS TIME, IV VANC PENDING DELIVERY WILL BE STARTED ORDERED
[2018-09-06 19:58] VITALS: BP 106/60
--- NOTE | 2018-09-07 03:13 | NUR ---
PT STILL IN PAIN,MANAGED WITH MEDS.FEET ELEVATED WITH PILLOW.UP TO BSC WITH ASSIST,GOOD OUTPUT NOTED.ISOLATION PRECAUTIONS MAINTAINED.IVF INFUSING ORDERED.PT SLEEPING ON HER BED AT THIS TIME.CALL LIGHT WITHIN REACH.
[2018-09-07 04:13] VITALS: BP 106/59
[2018-09-07 07:31] VITALS: BP 105/55
--- NOTE | 2018-09-07 10:21 | NUR ---
ASSUMED CARE OF PT AT 0700. ASSESSMENT COMPLETED. A&O,X4. C/O BILATERAL CELLULITIS FOOT PAIN, PAIN MEDS GIVEN ORDERED. DRESSING IN PLACE, CHANGED ORDERED. STATES NO QUESTIONS OR CONCERNS. WILL CONTINUE TO MONITOR.
--- NOTE | 2018-09-07 12:39 | NUR ---
PT IS NOT INTERESTED IN GOING TO REHAB ANYWHERE AND SHE DOES NOT WANT TO HAVE HH SERVICES EITHER. SHE SAYS SHE IS ABLE TO CHANGE HER OWN DRESSINGS AT HOME. SHE SAYS SHE USES HER WALKER TO GET AROUND. SHE WANTS TO GO DIRECTLY HOME. SHE HAS HOMEMAKER SERVICES TO ASSIST WITH COOKING/CLEANING.
--- NOTE | 2018-09-07 12:55 | NUR ---
CASE DISCUSSED WITH DR HERNANDEZ AND WITH JOAN FROM WOUND CARE AND THEY HAD A DISCUSSION WITH PT AND NOW SHE IS AGREEABLE TO HAVING HH SERVICES WILL ASK DC MIG TIG WELDER TO ALERT [facility].
[2018-09-07 12:56] VITALS: BP 105/55
[2018-09-07 14:34] VITALS: BP 105/55
--- NOTE | 2018-09-07 15:15 | NUR ---
WOUND FOLLOW UP: PT. WAS SEEN TODAY BY DR. BRAY AND MYSELF. PT. DRESSING TO HER LOWER EXTREMITYS ARE C/D/I AT THIS TIME. DISCHARGE PLANNING WAS DISCUSSED AND PT. WILL FOLLOW UP WITH DR. BRAY IN THE WOUND CLINIC. RECOMMENDATIONS: CONTINUE WITH CURRENT PLAN OF CARE. PT. AND STAFF NURSE WERE INSTRUCTED ON PLAN OF CARE.
--- NOTE | 2018-09-07 15:15 | NUR ---
DCP NOTIFIED [facility] DC TOMORROW 09/08 IF PT. DISCHARGES FAX DC ORDERS/DC SUMMARY TO [phone] AND CALL [phone] IF ANY HH QUESTIONS.
[2018-09-07 17:05] VITALS: BP 106/53
--- NOTE | 2018-09-07 19:46 | NUR ---
END OF SHIFT. PT C/O IV PAIN AND BURNING, IV NOT ABLE TO BE FLUSHED. PT REPORTS BEING A HARD STICK. IV TEAM CALLED FOR NEW IV ACCESS. IV ABX HELD UNTIL NEW ACCESS SITE. PT IN STABLE CONDITION. NO OTHER CHANGE IN STATUS.
[2018-09-07 20:12] VITALS: BP 104/60
--- NOTE | 2018-09-08 04:20 | NUR ---
ASSUMED PT CARE 1899. PT ALERT AND ORIENTED. VSS. REASSSESSMENT COMPLETED. PT REPORTS PAIN BILAT LE. MEDICATION GIVEN, SEE EMAR. PT FAMILY AT BEDSIDE. PT COMPLETED DRESSING CHANGE PER PT REQUEST DUE TO PENDING DISCHARGE. ASSESSED LE DURING DRESSING. PT TOLERATED CHANGE WELL. DRESSINGS C/D/I. IV DRESSING C/D/I, NO SIGNS OF INFILTRATION. PT CALL LIGHT AND PERSONAL BELONIGNS WITHIN REACH. WILL OCNTINUE POC UNTIL EOS.
[2018-09-08 05:59] VITALS: BP 95/52
--- NOTE | 2018-09-08 08:39 | NUR ---
ASSUMED CARE OF PT AT 0700. ASSESSMENT COMPLETED. A&O,X4. C/O LEFT KNEE PAIN, PT STATES KNEE POPPED OVERNIGHT. ICE IN PLACE FOR COMFORT, PAIN MEDS GIVEN ORDERED. WILL NOTIFY DR. JOSHUA N/V/D. LAST BM TWO DAYS AGO, PRUNE JUICE GIVEN TO PROMOTE BM. BILATERAL CELLULITIS, DRESSING IN PLACE, CHANGED ORDERED. POSSIBLE D/C TODAY. WILL CONTINUE TO MONITOR.
[2018-09-08] MEDS ORDERED: CIPRO500 MG PO (13:27)
[2018-09-08 13:28] VITALS: BP 105/55
[2018-09-08 16:21] VITALS: BP 105/55
--- NOTE | 2018-09-08 18:45 | NUR ---
DISCHARGE ORDERS. DISCHARGE INFORMATION DISCUSSED WITH PT AND DAUGHTER AT BEDSIDE. NEW SCRIPTS AND CARENOTES GIVEN. BELONGINGS GATHERED. PT LEFT IN STABLE CONDITION VIA WHEELCHAIR, DRESSINGS CHANGED AT 1845.
== END 2018-09-08 18:43 | disposition home health service (06) | DRG 853 ==
LOC: 4E 15:38
PROVIDERS: Nurse Practitioner Adult Health; Specialist; ADMIT Hospitalist
DX: A41.9 Sepsis, unspecified organism (principal); N17.0 Acute kidney failure with tubular necrosis; I42.9 Cardiomyopathy, unspecified; L03.116 Cellulitis of left lower limb; L03.115 Cellulitis of right lower limb; I50.32 Chronic diastolic (congestive) heart failure; M32.9 Systemic lupus erythematosus, unspecified; J44.9 Chronic obstructive pulmonary disease, unspecified; I48.2 Chronic atrial fibrillation; M34.9 Systemic sclerosis, unspecified; H40.9 Unspecified glaucoma; I87.8 Other specified disorders of veins; R20.3 Hyperesthesia; G89.4 Chronic pain syndrome; E03.9 Hypothyroidism, unspecified; I87.2 Venous insufficiency (chronic) (peripheral); E21.3 Hyperparathyroidism, unspecified; G47.00 Insomnia, unspecified; G62.9 Polyneuropathy, unspecified; T36.0X5A Adverse effect of penicillins, initial encounter; I73.9 Peripheral vascular disease, unspecified; G47.33 Obstructive sleep apnea (adult) (pediatric); E05.00 Thyrotoxicosis with diffuse goiter without thyrotoxic crisis or storm; M79.7 Fibromyalgia; Z88.6 Allergy status to analgesic agent; Z88.8 Allergy status to other drugs, medicaments and biological substances; Z98.42 Cataract extraction status, left eye; Z98.41 Cataract extraction status, right eye; Z90.49 Acquired absence of other specified parts of digestive tract; Z87.891 Personal history of nicotine dependence; Z90.81 Acquired absence of spleen; Z88.2 Allergy status to sulfonamides; Z79.82 Long term (current) use of aspirin; Z79.899 Other long term (current) drug therapy
CPT/HCPCS: 10783; 50010; 50101; 50386; 50403; 57119; 57120; 62110; 62900; 70005

== ENCOUNTER → 2018-09-03 | Outpatient (CLI) | payer OTHER | LOC: HYPER 08-28 07:23 | DX: T81.89XD Other complications of procedures, not elsewhere classified, subsequent encounter (principal); E11.622 Type 2 diabetes mellitus with other skin ulcer; I87.333 Chronic venous hypertension (idiopathic) with ulcer and inflammation of bilateral lower extremity; L97.822 Non-pressure chronic ulcer of other part of left lower leg with fat layer exposed; L97.812 Non-pressure chronic ulcer of other part of right lower leg with fat layer exposed; L97.321 Non-pressure chronic ulcer of left ankle limited to breakdown of skin; L97.311 Non-pressure chronic ulcer of right ankle limited to breakdown of skin; L97.211 Non-pressure chronic ulcer of right calf limited to breakdown of skin; E11.621 Type 2 diabetes mellitus with foot ulcer; L97.512 Non-pressure chronic ulcer of other part of right foot with fat layer exposed; L03.115 Cellulitis of right lower limb; M32.10 Systemic lupus erythematosus, organ or system involvement unspecified; E11.40 Type 2 diabetes mellitus with diabetic neuropathy, unspecified; E11.39 Type 2 diabetes mellitus with other diabetic ophthalmic complication; H40.9 Unspecified glaucoma; E11.51 Type 2 diabetes mellitus with diabetic peripheral angiopathy without gangrene; E66.9 Obesity, unspecified; G47.30 Sleep apnea, unspecified; I25.10 Atherosclerotic heart disease of native coronary artery without angina pectoris; J44.9 Chronic obstructive pulmonary disease, unspecified; K90.0 Celiac disease; K21.9 Gastro-esophageal reflux disease without esophagitis; M19.90 Unspecified osteoarthritis, unspecified site; F41.9 Anxiety disorder, unspecified; F32.9 Major depressive disorder, single episode, unspecified; Z86.718 Personal history of other venous thrombosis and embolism; Z68.32 Body mass index [BMI] 32.0-32.9, adult; Z87.891 Personal history of nicotine dependence; Y83.8 Other surgical procedures as the cause of abnormal reaction of the patient, or of later complication, without mention of misadventure at the time of the procedure ==

== ENCOUNTER 2018-11-21 15:17 | Inpatient (IN) | payer OTHER ==
[~2018-11-21] VITALS: Ht 172.7 cm; Wt 98.9 kg
--- NOTE | ~2018-11-21 | HC ---
[facility] [address] [place] [address] CONSULTATION Name: JORGITO MANNING Room #: 427-P [facility] IN M.R.#: [id number] Admission: 11/21/18 ������������������ Attend Phys: Moris Cruz MD Discharge: ������������������ Date of : 56 Report #: [id number] THIS REPORT FOR: //name// CC: Moris Cruz DATE OF SERVICE: 11/29/2018 CHIEF COMPLAINT: Venous stasis ulceration with cellulitis, bilateral lower extremities. The patient is on parenteral meropenem. DICTATION ENDS HERE. ��������������������������������������������� ���������������������������������������� By: ��������������������������������������������� 1919 0904 Shadi Jung DPM /nt
--- NOTE | ~2018-11-21 | HC ---
[facility] [address] [place] [address] CONSULTATION Name: JORGITO MANNING Philomena Room #: 427-P [facility] IN M.R.#: [id number] Admission: 11/21/18 ������������������ Attend Phys: Moris Cruz MD Discharge: ������������������ Date of : 56 Report #: [id number] THIS REPORT FOR: //name// CC: Moris Cruz DATE OF SERVICE: 11/29/2018 CHIEF COMPLAINT: Followup of bilateral venous stasis ulcerations with cellulitis. She is on parenteral meropenem and linezolid with good tolerance. Wound cultures grew VRE and Acinetobacter species. No MRI evidence of osteomyelitis or abscess. The pains were high-grade pain with direct palpation to all open lesions. There are no new labs for review. PHYSICAL EXAMINATION: There is decreased inflammation to both legs, but still high-grade to the right medial ankle with a crescentic shaped wound along the medial arch. No exposed bone, tendon or joint. No fluctuance or crepitation. The lesions are very painful. No pallor, cyanosis or signs of acute vascular embarrassment. IMPRESSION: Venous stasis ulcerations with cellulitis, bilateral lower extremities. PLAN: Bilateral foot leg wounds were cleansed and dried. Drawtex was placed to the right medial foot wound and then covered in Xeroform to the lateral foot wound. ABDs, Kerlix and Ye from behind the toes to below the knee were applied to the right lower extremity. Xeroform was applied to the left leg wounds with a small piece of Drawtex to the most proximal wound at the anterior aspect of the tibia. It was also wrapped with ABDs, Kerlix and Ye bandages from behind the toes to below the knee. I feel the patient will benefit from compression wraps at this point. I do not recommend any surgical intervention. ��������������������������������������������� ���������������������������������������� By: ��������������������������������������������� 1923 0917 Shadi Jung, ADELINA /nt
[~2018-11-21 15:17] MED LIST changes: +CIPRO500 MG PO
[2018-11-21 17:37] VITALS: BP 115/56
[2018-11-21 20:31] VITALS: BP 101/50
[2018-11-22 00:53] LABS: URINE BILIRUBIN NEGATIVE (Negative); URINE BLOOD NEGATIVE (Negative); URINE CLARITY CLEAR; URINE COLOR ORANGE; URINE GLUCOSE-RANDOM* NEGATIVE (Negative); URINE KETONES NEGATIVE (Negative); URINE LEUKOCYTES-REFLEX NEGATIVE (Negative); URINE NITRITE-REFLEX NEGATIVE (Negative); URINE PROTEIN (DIPSTICK) TRACE (Negative); URINE SPECIFIC GRAVITY 1.025 (1.005-1.035)
[2018-11-22 04:32] VITALS: BP 108/60
[2018-11-22 05:46] LABS: HEMATOCRIT 31.9 % (37.0-47.0); HEMOGLOBIN 10.4 gm/dL (12.0-15.0); MCH 28.7 pg (26.0-34.0); MCHC 32.7 g/dL (28.0-37.0); MCV 87.9 fL (80.0-100.0); RBC 3.63 mil/uL (4.20-5.00); RDW 14.7 % (10.5-14.5)
[2018-11-22 06:03] LABS: ALBUMIN 2.3 g/dL (3.4-5.0); CALCIUM 8.3 mg/dL (8.5-10.1); POTASSIUM 3.6 mmol/L (3.5-5.1); TOTAL BILIRUBIN 0.6 mg/dL (<0.1-1.0); TOTAL PROTEIN 6.9 g/dL (6.4-8.2)
[2018-11-22 08:52] VITALS: BP 129/61
[2018-11-22 10:08] LABS: COMPLEMENT-C3 128 mg/dL (82-167); COMPLEMENT-C4 12 mg/dL (14-44)
[2018-11-22 16:57] VITALS: BP 126/84
[2018-11-22 19:26] VITALS: BP 127/61
--- NOTE | 2018-11-22 20:49 | HC ---
[facility] [address] [place] [address] CONSULTATION Name: JORGITO MANNING Room #: 427-P ADM IN M.R.#: [id number] Admission: 11/21/18 ������������������ Attend Phys: Moris Cruz MD Discharge: ������������������ Date of : 56 Report #: [id number] THIS REPORT FOR: //name// CC: Moris Cruz REASON FOR CONSULTATION: Evaluate lower extremity cellulitis and fever with worsening pain. HISTORY OF PRESENT ILLNESS: The patient was a 63-year-old with bilateral lymphedema and chronic venous stasis ulcers with chronic pain syndrome. She also has diagnosis of scleroderma, SLE and Graves' disease. She has been dealing with this for several years. She has been hospitalized many times for debridement and antibiotic therapy. She has been seeing Dr. Braun who has been doing venous ablation procedures. She had one done on Monday, 5 days, previous and then another one 3 days ago. Subsequently, had increased pain, swelling and some bleeding from the sites. He comes in now with fever of 103 degrees at home with chills and increased pain. She has shooting, sharp pains down both legs into her feet. Most of the discomfort is in the lower legs and ankle region. She has been unable to walk or sleep without severe pain. She has been taking narcotics. She rates the pain up to a 10. Seen her initially in the Emergency Room and transferred to [facility] for further care. No other trauma noted. Previous cultures had revealed MRSA, Acinetobacter, Enterococcus. REVIEW OF SYSTEMS: She is obese. She has had no headaches, cough, sputum, nausea, vomiting or diarrhea. Her appetite has been reasonable. No dysuria, frequency or flank pain. A 10-point review was otherwise negative. ALLERGIES: ZOSYN, DEMEROL, SULFA, HYDROMORPHONE, DILANTIN. MEDICATIONS: As noted on her MAR, now on vancomycin. PAST MEDICAL HISTORY: Scleroderma lupus, COPD, restrictive lung disease, cardiomyopathy, Graves' disease, glaucoma, cataracts, cholecystectomy, tonsillectomy, venous insufficiency. FAMILY HISTORY: Noncontributory. SOCIAL HISTORY: Past smoker, no significant alcohol intake. PHYSICAL EXAMINATION: VITAL SIGNS: Afebrile and hemodynamically stable. GENERAL: She is alert and cooperative, sitting up in bed, very uncomfortable. She is obese. HEENT: With bilateral lower extremity cellulitis from her toes to her proximal calf regions. She had mild erythema in the medial aspect of both thighs. [address] [address] CONSULTATION Name: JORGITO MANNING Room #: 427-P [facility] IN [facility]#: [id number] Admission: 11/21/18 ������������������ Attend Phys: Moris Cruz MD Discharge: ������������������ Date of : 56 Report #: [id number] palpable adenopathy. EYES: Without scleral icterus. MOUTH: Without mucositis. NECK: Supple, with no thyromegaly or mass. CHEST: Clear. HEART: Regular, without murmur, gallop or rub. ABDOMEN: Obese, soft, nontender, no hepatosplenomegaly or mass appreciated. EXTREMITIES: As noted above with 2+ peripheral edema in the lower legs. There were palpable pulses in both dorsalis pedis. No cyanosis. She had multiple punctate lesions from her venous ablation procedures. There was ecchymosis and some eschar to the medial lower leg and ankle region, several ulcerations involving both lower legs distally. NEUROLOGIC: Mood normal. Cranial nerves intact. Strength in upper and lower extremities was normal. GENITAL RECTAL: Not performed. LABORATORY STUDIES: Pending. IMPRESSION: A 63-year-old with venous stasis disease and very painful venous ulcers, this in the setting of lupus and scleroderma. She has had multiple organisms in the past including Acinetobacter pseudomonas, MRSA, Enterococcus. She has had studies regarding arterial insufficiency, which have been negative. 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 She has hyperesthesia and chronic pain syndrome. RECOMMENDATIONS: We will continue with broad antibiotic coverage including vancomycin and meropenem. Cultures of blood as well as her wounds. Treat with analgesia, elevation and mild compression. Might also consider further evaluation for vasculitis associated with her SLE. From review of her previous records, I do not see that has been evaluated to this point. ��������������������������������������������� <ELECTRONICALLY SIGNED> ���������������������������������������� By: Shadi Del Valle MD ��������������������������������������������� 11/22/18 2049 2132 1318 Shadi Del Valle MD /nt
[2018-11-23 09:08] VITALS: BP 114/58
[2018-11-23 18:02] VITALS: BP 106/57
[2018-11-23 21:17] VITALS: BP 120/82
[2018-11-24 05:38] VITALS: BP 108/51
[2018-11-24 16:48] VITALS: BP 79/47
[2018-11-24 22:39] VITALS: BP 88/55
[2018-11-24 23:55] VITALS: BP 112/64
[2018-11-25 05:57] VITALS: BP 117/63
[2018-11-25 07:43] VITALS: BP 112/74
[2018-11-25 16:31] VITALS: BP 97/61
[2018-11-25 18:36] LABS: HEMATOCRIT 29.5 % (37.0-47.0); HEMOGLOBIN 9.8 gm/dL (12.0-15.0); MCH 29.2 pg (26.0-34.0); MCHC 33.3 g/dL (28.0-37.0); MCV 87.7 fL (80.0-100.0); RBC 3.36 mil/uL (4.20-5.00); RDW 14.8 % (10.5-14.5); WBC 7.5 thou/uL (4.0-11.0)
[2018-11-25 18:44] LABS: CALCIUM 8.8 mg/dL (8.5-10.1); CREATININE 0.9 mg/dL (0.6-1.0); POTASSIUM 3.6 mmol/L (3.5-5.1)
[2018-11-25 19:42] VITALS: BP 94/56
[2018-11-26 04:29] VITALS: BP 99/65
[2018-11-26 08:03] VITALS: BP 115/40
[2018-11-26 13:08] LABS: ANTI-DNA SCREEN 1 IU/mL (0-9); ANTI-RNP <0.2 AI (0.0-0.9)
[2018-11-26 17:30] VITALS: BP 101/59
[2018-11-26 19:54] VITALS: BP 117/89
[2018-11-27 01:06] VITALS: BP 124/52
[2018-11-27 04:30] VITALS: BP 110/65
[2018-11-27 08:12] VITALS: BP 116/57
[2018-11-27 15:15] VITALS: BP 118/66
[2018-11-27 19:55] VITALS: BP 106/69
[2018-11-28 05:00] VITALS: BP 121/75
--- NOTE | 2018-11-28 13:21 | HC ---
[facility] [address] [place] [address] CONSULTATION Name: KERRIJORGITO A Room #: 427-P [facility] IN M.R.#: [id number] Admission: 11/21/18 ������������������ Attend Phys: Moris Cruz MD Discharge: ������������������ Date of : 57 Report #: [id number] THIS REPORT FOR: //name// CC: Moris Cruz DATE OF SERVICE: 11/27/2018 REASON FOR CONSULTATION: Right plantar foot wound and bilateral nonhealing leg wounds with cellulitis, venous insufficiency and peripheral arterial disease. CHIEF COMPLAINT: The patient is a 63-year-old female admitted for worsening cellulitis and pain to bilateral lower extremities. She has been treated at the [facility] as an outpatient, with recent vein ablations by Dr. Mcgee. She had an aortogram with bilateral lower extremity runoff in August that was negative for stenosis, which is negative for focal stenosis. Her peroneal arteries were her dominant runoff vessels, as her left and right posterior tibial arteries are atretic. Arterial Doppler performed today was also negative for focal stenosis. Her wounds have recently cultured, vancomycin resistant, but was found to have recently cultured VRE and Acinetobacter baumannii. She is on parenteral meropenem and linezolid. She had Misonix ultrasonic wound debridement performed yesterday in the Operating Room. She has substantial pain to both legs, somewhat improved since yesterday. I was counseled to evaluate some deep necrotic tissue within the central cleft of the right plantar foot ulcer. Recent MRI was negative for abscess, it is unclear whether the enhancing fluid as an abscess. PAST MEDICAL HISTORY: Significant for SLE and scleroderma. LABORATORY DATA: WBC 7.5, RBC 3.36, hemoglobin 9.8, hematocrit 29.5 and platelets 449. BUN 14, creatinine 0.9 and glucose 170. PHYSICAL EXAMINATION: VITAL SIGNS: Temperature 97.4, pulse 85, respirations 18 and blood pressure 106/69. MUSCULOSKELETAL: Large penetrating ulceration to the right plantar medial hindfoot that is crescentic in shape. It is no bleed wound that transverses the dorsal aspect of the medial foot to the plantar medial arch. There is some firm yellow fibrous necrotic tissue to the wound bed of unknown anatomic structure. That may represent plantar fascia or just some fibrotic and necrotic granular buds. There are no pulsatile masses underneath the lesion. It is exquisitely painful to palpation. There is no expressible fluid and no active bleeding. She is severely indurated legs with advanced venous insufficiency/lymphedema with multiple lower extremity leg ulcers. No pallor or cyanosis. The skin is warm. IMPRESSION: Bilateral lower extremity ulcerations and right foot ulceration [address] [address] CONSULTATION Name: JORGITO MANNING Philomena Room #: 427-P [facility] IN .R.#: [id number] Admission: 11/21/18 ������������������ Attend Phys: Moris Cruz MD Discharge: ������������������ Date of : 56 Report #: [id number] with a deeper penetration, venous insufficiency/lymphedema. PLAN: The patient may benefit from a deeper wound debridement, although underlying blood vessels would need to be identified prior to sharp debridement. Alternatively, topical products such as Iodosorb to be packed into the wound to facilitate auto debridement. I do recommend some lower extremity compression wraps in the near future, such as 3-layer wrap for edema control. I will discuss with Dr. Skinner. ��������������������������������������������� <ELECTRONICALLY SIGNED> ���������������������������������������� By: Shadi Jung DPM ��������������������������������������������� 11/28/18 1321 2128 0215 Shadi Jung DPM /nt
[2018-11-28 19:42] VITALS: BP 107/72
[2018-11-29 04:33] VITALS: BP 95/80
[2018-11-29 08:37] VITALS: BP 86/42
[2018-11-29 14:41] VITALS: BP 123/50
[2018-11-29 17:27] VITALS: BP 103/63
[2018-11-29 20:00] VITALS: BP 106/72
[2018-11-30 05:10] VITALS: BP 121/71
[2018-11-30 08:00] VITALS: BP 105/52
[2018-11-30 15:55] VITALS: BP 112/60
[2018-11-30 21:45] VITALS: BP 108/47
[2018-12-01 05:25] VITALS: BP 112/57
[2018-12-01 08:09] VITALS: BP 101/63
[2018-12-01 20:50] VITALS: BP 112/55
[2018-12-02 04:20] VITALS: BP 105/64
[2018-12-02 08:43] VITALS: BP 107/59
[2018-12-02 17:51] VITALS: BP 94/53
[2018-12-02 19:46] VITALS: BP 115/43
[2018-12-03 05:06] VITALS: BP 123/58
[2018-12-03 08:21] VITALS: BP 102/44
[2018-12-03 16:12] VITALS: BP 102/54
[2018-12-03 20:30] VITALS: BP 97/75
[2018-12-04 04:30] VITALS: BP 94/57
[2018-12-04] MEDS ORDERED: OXYCODONE HCL30 MG PO (07:46)
[2018-12-04 08:10] VITALS: BP 115/77
[2018-12-04 09:34] VITALS: BP 115/77
[2018-12-04] MEDS ORDERED: MINOCIN50 MG PO ×2 (12:00→15:12)
[2018-12-04] MEDS ORDERED: TRIAMCINOLONE A80 G2 TOP (15:12)
[2018-12-04 15:46] VITALS: BP 140/74
[2018-12-04 18:26] VITALS: BP 115/77
== END 2018-12-04 19:36 | disposition home health service (06) | DRG 570 ==
LOC: 4E 15:17
PROVIDERS: Emergency Medicine; Specialist; ADMIT Family Medicine
PROC: 5A09357 Assistance with Respiratory Ventilation, Less than 24 Consecutive Hours, Continuous Positive Airway Pressure (ICD-10-PCS; principal; 2018-11-26)
PROC: 0JBQ0ZZ Excision of Right Foot Subcutaneous Tissue and Fascia, Open Approach (ICD-10-PCS; principal; 2018-11-26)
PROC: 0JBR0ZZ Excision of Left Foot Subcutaneous Tissue and Fascia, Open Approach (ICD-10-PCS; principal; 2018-11-26)
PROC: 5A09357 Assistance with Respiratory Ventilation, Less than 24 Consecutive Hours, Continuous Positive Airway Pressure (ICD-10-PCS; 2018-11-27)
PROC: 5A09357 Assistance with Respiratory Ventilation, Less than 24 Consecutive Hours, Continuous Positive Airway Pressure (ICD-10-PCS; 2018-11-28)
PROC: 5A09357 Assistance with Respiratory Ventilation, Less than 24 Consecutive Hours, Continuous Positive Airway Pressure (ICD-10-PCS; 2018-11-29)
PROC: 5A09357 Assistance with Respiratory Ventilation, Less than 24 Consecutive Hours, Continuous Positive Airway Pressure (ICD-10-PCS; 2018-11-30)
PROC: 5A09357 Assistance with Respiratory Ventilation, Less than 24 Consecutive Hours, Continuous Positive Airway Pressure (ICD-10-PCS; 2018-12-03)
DX: L03.115 Cellulitis of right lower limb (principal); E43 Unspecified severe protein-calorie malnutrition; I42.9 Cardiomyopathy, unspecified; B37.89 Other sites of candidiasis; L97.529 Non-pressure chronic ulcer of other part of left foot with unspecified severity; L03.116 Cellulitis of left lower limb; L97.519 Non-pressure chronic ulcer of other part of right foot with unspecified severity; M32.9 Systemic lupus erythematosus, unspecified; E05.00 Thyrotoxicosis with diffuse goiter without thyrotoxic crisis or storm; K21.9 Gastro-esophageal reflux disease without esophagitis; G25.81 Restless legs syndrome; F03.90 Unspecified dementia, unspecified severity, without behavioral disturbance, psychotic disturbance, mood disturbance, and anxiety; I87.2 Venous insufficiency (chronic) (peripheral); M34.9 Systemic sclerosis, unspecified; R20.3 Hyperesthesia; K59.00 Constipation, unspecified; G89.4 Chronic pain syndrome; B96.89 Other specified bacterial agents as the cause of diseases classified elsewhere; Z16.21 Resistance to vancomycin; I10 Essential (primary) hypertension; E89.0 Postprocedural hypothyroidism; J44.9 Chronic obstructive pulmonary disease, unspecified; E66.9 Obesity, unspecified; Z68.33 Body mass index [BMI] 33.0-33.9, adult; Z98.42 Cataract extraction status, left eye; Z98.41 Cataract extraction status, right eye; Z87.891 Personal history of nicotine dependence; Z90.49 Acquired absence of other specified parts of digestive tract; Z79.51 Long term (current) use of inhaled steroids; Z79.82 Long term (current) use of aspirin; Z79.899 Other long term (current) drug therapy; Z88.2 Allergy status to sulfonamides; Z88.8 Allergy status to other drugs, medicaments and biological substances
CPT/HCPCS: 10783; 50010; 50101; 50386; 50403; 57119; 57120; 62110; 62900; 70005

== ENCOUNTER 2018-12-24 15:34 | Inpatient (IN) | payer OTHER ==
[~2018-12-24] VITALS: Ht 172.7 cm; Wt 98.9 kg
--- NOTE | ~2018-12-24 | O ---
[facility] [address] [address] OPERATIVE REPORT Name: JORGITO MANNING Philomena Room #: 453-P ADM IN M.R.#: [id number] Admission: 12/24/18 ������������������ Attend Phys: Moris Cruz MD Discharge: ������������������ Date of : 56 Report #: [id number] THIS REPORT FOR: //name// CC: Clair Cruz DATE OF SERVICE: 12/25/2018 SURGEON: Shaid Jung DPM. PREOPERATIVE DIAGNOSES: 1. Bilateral leg ulcerations. 2. Right plantar medial foot ulceration. ANESTHESIA: General LMA. SPECIMENS: Soft tissue, right ankle. CULTURES: 1. Soft tissue, right ankle, aerobic, anaerobic, acid fast and TB. 2. Soft tissue, left ankle, aerobic, anaerobic, acid fast and TB. ESTIMATED BLOOD LOSS: Less than 5 mL. COMPLICATIONS: None. DESCRIPTION OF PROCEDURE: The patient was brought to the OR and placed on the table supine with induction of general LMA anesthesia. Both lower extremities were prepped and draped aseptically below the knees. A #10 surgical scalpel was used to excise the fascia and subcutaneous tissue from the right distal medial leg wound, which was roughly 6 inches long and 3 inches wide. I skived the subcutaneous tissue and fascia off the wound down to a bleeding fibrotic fascial plane. Electrocautery was utilized for hemostasis to the region. I submitted a portion of this lesion for gross pathology and another portion for aerobic, anaerobic, acid fast and TB cultures. I then directed my attention to the plantar medial arch wound and excised the plantar fascia that was exposed in the wound bed. I performed a fasciectomy of all plantar fascia within the wound with a scalpel and then I used a curette to remove subcutaneous tissue and fibrotic slough from the wound bed as well. I debrided the wound to the right anterior leg and right lateral leg with a curette to remove subcutaneous tissue from both wounds, down to pinpoint bleeding wound bed. The total area of the right lower extremity wounds was 120 cm2. The wounds were flushed with sterile saline with bacitracin irrigant and dried. They were dressed with Xeroform, 4 x 4s, ABDs, Kerlix gauze and Ye bandages to below the knee. [address] [address] OPERATIVE REPORT Name: KERRIJORGITO Philomena Room #: 453-P [facility] IN ..#: [id number] Admission: 12/24/18 ������������������ Attend Phys: Moris Cruz MD Discharge: ������������������ Date of : 56 Report #: [id number] Attention was then directed to the left lower extremity, where I performed an excisional debridement using a scalpel to the anterior lateral leg wound. A portion of that tissue was also sent for soft tissue cultures, as I had performed on the right leg. I debrided all the wounds to the left lower extremity, including 2 to the anterior lateral leg, dorsal left hindfoot, with total wound measurements of 100 cm2 to the left lower extremity. All the debridements to the left extremity were subcutaneous excisional tissue debridements. The wounds were cleansed, dried and dressed with Xeroform, 4 x 4s, ABDs, Kerlix and Ye wraps. The patient left the OR, alert and oriented, with no complications noted. ��������������������������������������������� ���������������������������������������� By: ��������������������������������������������� 1119 1141 Shadi Jung, ADELINA /nt
--- NOTE | ~2018-12-24 | HC ---
[facility] [address] [address] CONSULTATION Name: KERRIJORGITO Philomena Room #: 453-P [facility] IN M.R.#: [id number] Admission: 12/24/18 ������������������ Attend Phys: Moris Cruz MD Discharge: 12/26/18 ������������������ Date of : 56 Report #: [id number] THIS REPORT FOR: //name// CC: Clair Cruz DATE OF SERVICE: 12/25/2018 REASON FOR CONSULTATION: I was asked to evaluate concerning nonhealing wounds to both lower extremities. HISTORY OF PRESENT ILLNESS: The patient is a 63-year-old known from her previous hospitalizations and outpatient care with bilateral lymphedema and chronic venous stasis ulcers, chronic pain syndrome. She also has a diagnosis of scleroderma, SLE and Graves' disease. Over the last several years, she has had nonhealing wounds to both lower extremities. She was last hospitalized in November after she underwent debridement. Again, plan was for debridement this hospital stay. She underwent a local debridement in the OR. Wounds remained dressed. Pain is under better control. She has been given broad antibiotic coverage. No fever, chills or sweats. No nausea, vomiting or diarrhea. REVIEW OF SYSTEMS: A 10-point review of systems was otherwise negative other than what is described above. Previous cultures had revealed Enterococcus and Acinetobacter MRSA. ALLERGIES: ZOSYN, DEMEROL, SULFA, HYDROMORPHONE, DILANTIN. MEDICATIONS: As noted on her MAR, now off antibiotics, pending further evaluation. PAST MEDICAL HISTORY: COPD, restrictive lung disease, cardiomyopathy, Graves' disease, glaucoma, cataracts, cholecystectomy, tonsillectomy, venous insufficiency, scleroderma, lupus. FAMILY HISTORY: Noncontributory. SOCIAL HISTORY: Past smoker, no significant alcohol intake. PHYSICAL EXAMINATION: VITAL SIGNS: Afebrile and hemodynamically stable. GENERAL: She is alert and cooperative and pleasant, was obese. SKIN: Wounds were evaluated from pictures the patient took of them, currently are wrapped. Outside of her lower extremities below the knee, there were no other rashes or decubiti. No palpable adenopathy. HEENT: Eyes, without scleral icterus. Mouth without mucositis. [facility] [address] [place] [address] CONSULTATION Name: JORGITO MANNING Room #: 453-P [facility] IN [facility]#: [id number] Admission: 12/24/18 ������������������ Attend Phys: Moris Cruz MD Discharge: 12/26/18 ������������������ Date of : 56 Report #: [id number] LUNGS: Clear. HEART: Regular, without murmur, gallop or rub. ABDOMEN: Soft, nontender, no hepatosplenomegaly or mass. EXTREMITIES: Without cyanosis or clubbing. NEUROLOGIC: Cranial nerves intact. Strength in upper and lower extremities was normal. LABORATORY STUDIES: Reviewed. Microbiology reports reviewed. X-rays reviewed. I have discussed the case with wound care team. IMPRESSION: A 63-year-old with chronic venous stasis disease and chronic pain syndrome involving both lower extremities in the setting of obesity, lupus and scleroderma. Previous studies for arterial insufficiency were negative. No evidence for malignancy or other inflammatory skin disorder. 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 RECOMMENDATION: The patient will be placed on Zyvox and meropenem pending initial culture results. She will continue with compression, elevation and pain management. Once further identification of potential pathogen is identified, we will then be able to switch to oral antibiotic therapy and topical therapy. ��������������������������������������������� ���������������������������������������� By: ��������������������������������������������� 1606 2248 Shadi Del Valle MD /nt
[2018-12-24 15:37] VITALS: BP 126/63
[2018-12-24 17:02] LABS: HEMATOCRIT 36.8 % (37.0-47.0); HEMOGLOBIN 11.9 gm/dL (12.0-15.0); MCH 28.7 pg (26.0-34.0); MCHC 32.3 g/dL (28.0-37.0); MCV 88.8 fL (80.0-100.0); PLATELET COUNT 419 thou/uL (150-400); RBC 4.14 mil/uL (4.20-5.00); RDW 16.5 % (10.5-14.5); WBC 10.8 thou/uL (4.0-11.0)
[2018-12-24 17:09] LABS: CALCIUM 9.1 mg/dL (8.5-10.1); CREATININE 0.9 mg/dL (0.6-1.0); POTASSIUM 3.4 mmol/L (3.5-5.1)
[2018-12-24 17:10] VITALS: BP 113/59
[2018-12-24 17:14] LABS: PROTIME 10.7 Seconds (9.3-11.4)
[2018-12-24 17:16] VITALS: BP 142/66
[2018-12-24 17:34] LABS: ABSOLUTE NEUTROPHILS 5.3 thou/uL (1.4-8.2); ANISOCYTOSIS 1+
[2018-12-24 19:37] VITALS: BP 140/77
[2018-12-24 22:19] VITALS: BP 98/49
--- NOTE | 2018-12-25 02:56 | NUR ---
ASSUMED CARE OF PT. @1900 PT ADMITTED ON THE UINT @1630 FROM THE ER with complains of pain and LOW EXTREMITY WOUNDS BILLATERALY. IV PRESENT ON BOTH ARMS AND FLUIDS INFUSING. DURING SHIFT COMPLAINED OF PAIN AND MEDS GIVEN. POC DONE AND BED IN LOW POSITION. SURGERY TO BE DONE IN THE MORNING. UP WITH SBA WILL CONTINUE TO MONITOR.
[2018-12-25 05:37] VITALS: BP 116/73
[2018-12-25 10:15] VITALS: BP 117/73
--- NOTE | 2018-12-25 13:28 | NUR ---
WOUND CONSULT; ROUNDING WITH DR LOUIS AND BORIS OIL EXPERT PATIENT IS S/P SURGICAL DEBRIDEMENT DAY 1. THE SURGICAL DRESSINGS ARE IN PLACE, CDI. THE PATIENT WANTS TO GO HOME. RECOMMENDATIONS; NONE AT THIS TIME.
[2018-12-25 14:42] VITALS: BP 104/61
--- NOTE | 2018-12-25 17:21 | NUR ---
PT ADMITTED RELATED TO NON HEALING BILATERAL LE WOUNDS. CM REVIEWED CHART AND SPOKE WITH CARE TEAM. CM MET WITH PT AT BEDSIDE THIS DAY PT IS A&O X4. CM ROLE INTRODUCED. PT INDICATED SHE LIVES ALONE IN A HOUSE. HE HAS A FWW, CANE, WC, O2, AND BIPAP FOR HOME USE. PT INDICATED SHE HAS CAREGIVER SERVICES THROUGH [facility] FOR 3 HRS. PT HAD BEEN ON SERVICE WITH [facility]VAGE CUTTER AND [facility]OUKD LIVE TO RESUME THEM UPON DC. CM TO FOLLOW INDICATED WITH DC PLANNING.
--- NOTE | 2018-12-25 20:29 | NUR ---
PATIENT A&OX4, VSS, PAIN IN BILAT LE MANAGED WITH PAIN MEDICATION. PATIENT HAD I&D COMPLETED TO BILAT LE. DRESSING ON BOTH LEGS C/D/I. PATIENTS GOAL IS TO DISCHARGE TOMMORROW. PATIENT TOLERATING DIET WELL. SHE HAS REFUSED ALL BLOOD SUGAR CHECKS. PATIENT HAS ALSO REFUSED HER NORMAL SALINE, INFORMATION PASSED ON TO ONCOMING NURSE. WILL CONTINUE TO MONITOR.
[2018-12-25 21:29] VITALS: BP 105/60
--- NOTE | 2018-12-26 04:29 | NUR ---
Assumed pt care at 1900. Pt A/OX4,up with SBA to BSC.VSS No c/o pain on BLE on assessment. Dressings on to BLE C/D/I. Pt did agree to have blood suager at HS by THEATRE INSTRUCTOR it's 324. However,she declined to take insulin regardless of how high it was. contacted for med orders; Mirapex,Protonix restarted and IV fluids dc'd. Pt verbalizes wanting to go home today;questioning if wound cx are back informed it may take 2 days or so before they're back encouraged to talk with the DrHome this morning. Contact isolation maintained. Resting quietly at this time with no distress noted,O2 on @ 2L/NC.Will continue to monitor pt.
[2018-12-26 08:12] VITALS: BP 103/60
[2018-12-26 10:13] VITALS: BP 103/60
--- NOTE | 2018-12-26 14:01 | NUR ---
PT A&OX4, VSS, PAIN IN BILAT LE TREATED WITH MEDICATION. FAMILY AT BEDSIDE. ANTIBIOTICS HUNG ORDERED. PATIENT HAD I&D YESTERDAY AWAITING WOUND DOCTOR FOR ORDERS. PATIENT CALLS FOR HELP WHEN NEEDED. WILL CONTINUE TO MONITOR.
--- NOTE | 2018-12-26 15:21 | NUR ---
WOUND CARE FOLLOW UP; DR LOUIS AND BORIS ARREOLA TODAY. 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 THE WOUNDS THIS ADMISSION HAS DRAMATICALLY LESS PAIN. PATIENTS D/C HOME IS [facility] TODAY. RECOMMENDATION; CONT. POC DISCUSSED WITH JAY
--- NOTE | 2018-12-26 18:10 | NUR ---
[facility] INDICATED THEY ARE ABLE TO ACCEPT PT BACK AFTER ALL. CM FAXED ORDERS TO THEM. PT HAS ALL RECOMMENDED DME. NO OTHER CM INTERVENTION INDICATED. CASE CLOSED.
--- NOTE | 2018-12-27 13:06 | PATH ---
[facility] [address] [place] [address] PATHOLOGY RPT PROCEDURE Name: MARIE MANNING Room #: 453-P [facility] IN M.R.#: [id number] ������������������ Admission: 12/24/18 ������������������ Date of : 57 Discharge: 12/26/18 Report #: [id number] Path Case #: [id number] [facility] Accession Number: [id number] . 01 Material submitted: . leg - RIGHT LEG ULCER TISSUE. Modifiers: right . 01 Clinical history: . Bilateral lower leg wounds . 02 Diagnosis: Right leg ulcer tissue, debridement: - Marked acute inflammation, ulceration and gangrenous necrosis associated with extensive fibrinoid degeneration, consistent with debridement tissue. . 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 02 Electronically signed: . Seda Rendon MD, Pathologist NPI- [id number] . 01 Gross description: . The specimen is received in formalin, labeled "Brown, Marie, right leg ulcer tissue", is a roughly rectangular knight white indurated, necrotic tissue measuring 2.4 x 1.8 x 1.0 cm. Scale Clerk tissue is submitted in A1. ([facility]; 12/25/2018) SHS/SHS . 02 Pathologist provided ICD-10: L97.911 . 02 CPT . 157667 Specimen Comment: A courtesy copy of this report has been sent to Specimen Comment: [phone], , . Specimen Comment: Report sent to ,DR CAREY / DR LIANG Performed at: [address], [place] [id number] MD Wilbert Kulkarni MD Phone: [phone] Performed at: [address] [id number] MD Seda Rendon MD Phone: [phone]
--- NOTE | 2018-12-28 08:26 | HC ---
[facility] [address] [place] [address] CONSULTATION Name: JORGITO MANNING Room #: 453-P [facility] IN ..#: [id number] Admission: 12/24/18 ������������������ Attend Phys: Moris Cruz MD Discharge: 12/26/18 ������������������ Date of : 56 Report #: [id number] THIS REPORT FOR: //name// CC: Clair Cruz DATE OF SERVICE: 12/25/2018 CHIEF COMPLAINT: Wound infection of the bilateral lower extremities. HISTORY OF PRESENT ILLNESS: This is a 63-year-old female patient with a history of venous stasis dermatitis and venous ulcerations of her legs that have been present for some time. She presented to the office with increasing pain, swelling and drainage and it was felt that needed additional debridement and admitted for both antibiotic therapy as well as debridement. The patient complains of significant pain associated with this. She has been having increasing difficulty caring for herself at home since her parents recently have both . PAST MEDICAL HISTORY: Positive for venous dermatitis and venous ulceration in bilateral lower extremity, cellulitis. She has had angiography in the past, which demonstrates 2-vessel runoff below the knee. ALLERGIES: PIPERACILLIN, MEPERIDINE, SULFA, TAZOBACTAM, AND DILANTIN. MEDICATIONS: Include pantoprazole, fluticasone, albuterol, donepezil, tizanidine, gabapentin, Demadex, pramipexole, minocycline, oxycodone, and triamcinolone. SOCIAL HISTORY: Negative for alcohol or tobacco. She does live alone at home. She had been previously cared for by her elderly parents who are recently . FAMILY HISTORY: Noncontributory. REVIEW OF SYSTEMS: CONSTITUTIONAL: The patient denies fever, chills or weight loss. NEUROLOGICAL: The patient denies focal weakness, numbness, tingling. EYES: The patient denies visual changes, redness, or drainage. ENT: The patient denies earache, nasal drainage, sore throat. CARDIOVASCULAR: The patient denies chest pain or palpitations or diaphoresis. PULMONARY: The patient denies cough or shortness of breath. GASTROINTESTINAL: The patient denies nausea, vomiting or diarrhea. ORTHOPEDIC: The patient complains of severe pain, swelling, drainage from both lower extremities, more so on the right than on the left. [address] [address] CONSULTATION Name: JORGITO MANNING Philomena Room #: 453-P [facility] IN M.R.#: [id number] Admission: 12/24/18 ������������������ Attend Phys: Moris Cruz MD Discharge: 12/26/18 ������������������ Date of : 56 Report #: [id number] Other systems in a 14-point review of systems are negative. PHYSICAL EXAMINATION: VITAL SIGNS: At this time include temperature 36.8, pulse 95, respiratory rate 16, and blood pressure 104/61. GENERAL: This is a chronically ill-appearing female patient who appears to be in no distress. HEENT: Normocephalic and atraumatic. Mucous membranes are moist. Pupils are round. Sclerae white. NECK: Supple. LUNGS: Clear. HEART: Sounds normal. ABDOMEN: Soft. Bowel sounds present. EXTREMITIES: The lower extremities demonstrate multiple areas of ulceration involving bilateral lower legs, in particular, there are deeper ulcerations with a hard eschar and fibrin involving the medial right ankle. There is surrounding erythema consistent with cellulitis as well as volume overload. CLINICAL IMPRESSION: 1. Venous ulcerations, bilateral lower extremities with wound infection. 2. Cellulitis, bilateral lower extremities. 3. Venous hypertension. RECOMMENDATIONS: At this point in time, the patient is admitted to the hospital and started on empiric antibiotic therapy. I have consulted Dr. Shadi Jung for surgical debridement of the lower extremities. There will be some consideration of a skin substitute as well. Her infection may be too significant at this time to proceed with that. Admission orders have been written. The patient is admitted in a stable condition. I appreciate being asked to see her in consultation. ��������������������������������������������� <ELECTRONICALLY SIGNED> ���������������������������������������� By: Dar Skinner MD ��������������������������������������������� 12/28/18 0826 1600 19 Dar Skinner MD /nt
== END 2018-12-26 18:49 | disposition home health service (06) | DRG 570 ==
LOC: ER 15:34 → EROBS 17:15 → 4W 17:15 → ENTRNSPT 12-26 18:11 → EDTRNSPT 12-26 18:25 → 4W 12-26 18:49
PROVIDERS: Nurse Practitioner Family; ADMIT Hospitalist
PROC: 0JBP0ZZ Excision of Left Lower Leg Subcutaneous Tissue and Fascia, Open Approach (ICD-10-PCS; principal; 2018-12-25)
PROC: 0JBQ0ZZ Excision of Right Foot Subcutaneous Tissue and Fascia, Open Approach (ICD-10-PCS; principal; 2018-12-25)
PROC: 0JBR0ZZ Excision of Left Foot Subcutaneous Tissue and Fascia, Open Approach (ICD-10-PCS; principal; 2018-12-25)
PROC: 0JBN0ZZ Excision of Right Lower Leg Subcutaneous Tissue and Fascia, Open Approach (ICD-10-PCS; principal; 2018-12-25)
DX: L03.116 Cellulitis of left lower limb (principal); E43 Unspecified severe protein-calorie malnutrition; I42.9 Cardiomyopathy, unspecified; L97.929 Non-pressure chronic ulcer of unspecified part of left lower leg with unspecified severity; L97.919 Non-pressure chronic ulcer of unspecified part of right lower leg with unspecified severity; L03.115 Cellulitis of right lower limb; I89.0 Lymphedema, not elsewhere classified; I87.309 Chronic venous hypertension (idiopathic) without complications of unspecified lower extremity; E66.9 Obesity, unspecified; G89.4 Chronic pain syndrome; J44.9 Chronic obstructive pulmonary disease, unspecified; H40.9 Unspecified glaucoma; M32.9 Systemic lupus erythematosus, unspecified; I87.2 Venous insufficiency (chronic) (peripheral); E05.00 Thyrotoxicosis with diffuse goiter without thyrotoxic crisis or storm; Z88.8 Allergy status to other drugs, medicaments and biological substances; Z88.2 Allergy status to sulfonamides; Z90.49 Acquired absence of other specified parts of digestive tract; Z98.49 Cataract extraction status, unspecified eye; Z68.33 Body mass index [BMI] 33.0-33.9, adult
CPT/HCPCS: 10040; 10045; 50010; 50101; 50386; 57091; 62110; 62900; 70005

== ENCOUNTER → 2018-12-24 | Outpatient (CLI) | payer OTHER ==
[~2018-12-24] MED LIST changes: +MINOCIN50 MG PO; +OXYCODONE HCL30 MG PO; +TRIAMCINOLONE A80 G2 TOP
== END ==
LOC: HYPER 07:09
DX: T81.89XD Other complications of procedures, not elsewhere classified, subsequent encounter (principal); E11.622 Type 2 diabetes mellitus with other skin ulcer; I87.333 Chronic venous hypertension (idiopathic) with ulcer and inflammation of bilateral lower extremity; L97.822 Non-pressure chronic ulcer of other part of left lower leg with fat layer exposed; L97.812 Non-pressure chronic ulcer of other part of right lower leg with fat layer exposed; L97.311 Non-pressure chronic ulcer of right ankle limited to breakdown of skin; L97.321 Non-pressure chronic ulcer of left ankle limited to breakdown of skin; L03.115 Cellulitis of right lower limb; E11.621 Type 2 diabetes mellitus with foot ulcer; L97.512 Non-pressure chronic ulcer of other part of right foot with fat layer exposed; E11.40 Type 2 diabetes mellitus with diabetic neuropathy, unspecified; E11.39 Type 2 diabetes mellitus with other diabetic ophthalmic complication; H40.9 Unspecified glaucoma; H42 Glaucoma in diseases classified elsewhere; E11.51 Type 2 diabetes mellitus with diabetic peripheral angiopathy without gangrene; M32.10 Systemic lupus erythematosus, organ or system involvement unspecified; I25.10 Atherosclerotic heart disease of native coronary artery without angina pectoris; M79.7 Fibromyalgia; G47.30 Sleep apnea, unspecified; E66.9 Obesity, unspecified; E03.9 Hypothyroidism, unspecified; K21.9 Gastro-esophageal reflux disease without esophagitis; M19.90 Unspecified osteoarthritis, unspecified site; J44.9 Chronic obstructive pulmonary disease, unspecified; F41.9 Anxiety disorder, unspecified; F32.9 Major depressive disorder, single episode, unspecified; Z87.891 Personal history of nicotine dependence; Z68.32 Body mass index [BMI] 32.0-32.9, adult; Z86.718 Personal history of other venous thrombosis and embolism; Y83.8 Other surgical procedures as the cause of abnormal reaction of the patient, or of later complication, without mention of misadventure at the time of the procedure

== ENCOUNTER → 2019-01-02 | Outpatient (CLI) | payer OTHER | LOC: HYPER 06:41 | DX: T81.89XD Other complications of procedures, not elsewhere classified, subsequent encounter (principal); E11.622 Type 2 diabetes mellitus with other skin ulcer; I87.333 Chronic venous hypertension (idiopathic) with ulcer and inflammation of bilateral lower extremity; L97.822 Non-pressure chronic ulcer of other part of left lower leg with fat layer exposed; L97.812 Non-pressure chronic ulcer of other part of right lower leg with fat layer exposed; L97.311 Non-pressure chronic ulcer of right ankle limited to breakdown of skin; L97.321 Non-pressure chronic ulcer of left ankle limited to breakdown of skin; E11.621 Type 2 diabetes mellitus with foot ulcer; L97.512 Non-pressure chronic ulcer of other part of right foot with fat layer exposed; E11.40 Type 2 diabetes mellitus with diabetic neuropathy, unspecified; E11.39 Type 2 diabetes mellitus with other diabetic ophthalmic complication; H40.9 Unspecified glaucoma; H42 Glaucoma in diseases classified elsewhere; E11.51 Type 2 diabetes mellitus with diabetic peripheral angiopathy without gangrene; I10 Essential (primary) hypertension; I25.10 Atherosclerotic heart disease of native coronary artery without angina pectoris; M79.7 Fibromyalgia; E03.9 Hypothyroidism, unspecified; M32.10 Systemic lupus erythematosus, organ or system involvement unspecified; E66.9 Obesity, unspecified; M19.90 Unspecified osteoarthritis, unspecified site; G47.30 Sleep apnea, unspecified; K21.9 Gastro-esophageal reflux disease without esophagitis; J44.9 Chronic obstructive pulmonary disease, unspecified; F41.9 Anxiety disorder, unspecified; F32.9 Major depressive disorder, single episode, unspecified; Z68.32 Body mass index [BMI] 32.0-32.9, adult; Z87.891 Personal history of nicotine dependence; Z86.718 Personal history of other venous thrombosis and embolism; Y83.8 Other surgical procedures as the cause of abnormal reaction of the patient, or of later complication, without mention of misadventure at the time of the procedure ==

== ENCOUNTER → 2019-01-30 | Outpatient (CLI) | payer OTHER | LOC: HYPER 06:31 | DX: T81.89XD Other complications of procedures, not elsewhere classified, subsequent encounter (principal); I87.333 Chronic venous hypertension (idiopathic) with ulcer and inflammation of bilateral lower extremity; L97.822 Non-pressure chronic ulcer of other part of left lower leg with fat layer exposed; L97.812 Non-pressure chronic ulcer of other part of right lower leg with fat layer exposed; L97.512 Non-pressure chronic ulcer of other part of right foot with fat layer exposed; E11.39 Type 2 diabetes mellitus with other diabetic ophthalmic complication; H40.9 Unspecified glaucoma; H42 Glaucoma in diseases classified elsewhere; E11.51 Type 2 diabetes mellitus with diabetic peripheral angiopathy without gangrene; E11.40 Type 2 diabetes mellitus with diabetic neuropathy, unspecified; E11.622 Type 2 diabetes mellitus with other skin ulcer; E11.621 Type 2 diabetes mellitus with foot ulcer; L97.311 Non-pressure chronic ulcer of right ankle limited to breakdown of skin; L97.321 Non-pressure chronic ulcer of left ankle limited to breakdown of skin; I10 Essential (primary) hypertension; G47.30 Sleep apnea, unspecified; E66.9 Obesity, unspecified; I25.10 Atherosclerotic heart disease of native coronary artery without angina pectoris; E03.9 Hypothyroidism, unspecified; K21.9 Gastro-esophageal reflux disease without esophagitis; M19.90 Unspecified osteoarthritis, unspecified site; M79.7 Fibromyalgia; M32.10 Systemic lupus erythematosus, organ or system involvement unspecified; J44.9 Chronic obstructive pulmonary disease, unspecified; F41.9 Anxiety disorder, unspecified; F32.9 Major depressive disorder, single episode, unspecified; Z87.891 Personal history of nicotine dependence; Z86.718 Personal history of other venous thrombosis and embolism; Y83.8 Other surgical procedures as the cause of abnormal reaction of the patient, or of later complication, without mention of misadventure at the time of the procedure ==

== ENCOUNTER 2019-08-13 14:00 | Inpatient (IN) | payer OTHER ==
[~2019-08-13] VITALS: Ht 172.7 cm; Wt 96.4 kg
--- NOTE | ~2019-08-13 | P ---
[facility] [address] [address] PROCEDURE REPORT Name: JORGITO MANNING Room #: 206-P [facility] IN M.R.#: [id number] Admission: 08/13/19 Attend Phys: Odin Rudolph MD Discharge: 09/03/19 Date of : 56 Report #: [id number] THIS REPORT FOR: cc: Moris Cruz MD, Neal A. MD McElhinney, Christian C. MD ~ CC: Odin Montes DATE OF SERVICE: 09/03/2019 PROCEDURE PERFORMED: Upper endoscopy with biopsies, esophageal dilation and cautery. HISTORY OF PRESENT ILLNESS: The patient is a 64-year-old female with a history of anemia, Hemoccult negative x 1. She does have dysphagia. She underwent a PEG tube placement for nutritional support due to chronic lower extremity bilateral wounds, but the patient is eating fairly well at this time. She does complain of dysphagia. Plan is for EGD and colonoscopy. DESCRIPTION OF PROCEDURE: The risks and benefits of the procedure were explained to the patient, those risks including but not limited to bleeding, perforation and the risk of sedation. She understood these risks and gave informed consent. Sedation was given using propofol per anesthesia. Next, using a standard Olympus upper endoscope, the scope was placed in the patient's mouth and advanced under direct vision through the esophagus, stomach and into the second portion of the duodenum. The larynx was normal in appearance. The esophagus was normal throughout. The GE junction was normal. Overall, the gastric mucosa was normal. The PEG tube bumper was noted to be in good position in the mid body. The pylorus was normal and patent. The duodenal bulb, first and second portion were normal other than 3 small nonbleeding AVMs were noted in the second portion. I proceeded with cauterization of these using a 7-Georgian bipolar cautery, also obtained several biopsies to rule out the possibility of celiac sprue. The scope was then brought back up into the patient's stomach and a Savary guidewire was inserted through the scope, leaving the guidewire in place as the scope was then withdrawn. Next, a 48-Georgian Savary dilation of the esophagus was performed without difficulty. The wire and dilator removed. The scope was reintroduced into the patient's stomach. There was no evidence of mucosal tear after dilation. The scope was then withdrawn and the procedure terminated. The patient tolerated the procedure well. IMPRESSION: [facility] [address] [place] [address] PROCEDURE REPORT Name: JORGITO MANNING Room #: 206-P [facility] IN M.R.#: [id number] Admission: 08/13/19 Attend Phys: Odin Rudolph MD Discharge: 09/03/19 Date of : 56 Report #: [id number] 1. Three small nonbleeding AVMs in the second portion of the duodenum, status post cautery. 2. PEG tube noted in place. 3. Otherwise, normal upper endoscopy. RECOMMENDATIONS: 1. Await biopsy results. 2. We will proceed with colonoscopy next today. Thank you for allowing me to participate in her care. By: 1219 31 Denis Vargas MD /nt
--- NOTE | ~2019-08-13 | P ---
[facility] [address] [place] [place] [address] PROCEDURE REPORT Name: JORGITO MANNING Room #: 206-P [facility] IN M.R.#: [id number] Admission: 08/13/19 Attend Phys: Odin Rudolph MD Discharge: 09/03/19 Date of : 57 Report #: [id number] THIS REPORT FOR: cc: Moris Cruz MD, Neal A. MD McElhinney, Christian C. MD ~ CC: Odin Montes DATE OF SERVICE: 09/03/2019 PROCEDURE PERFORMED: Colonoscopy with biopsies. HISTORY OF PRESENT ILLNESS: The patient is a 64-year-old female with a history of anemia, most recent hemoglobin in the 9 range. Stool Hemoccult negative x 1. Upper endoscopy was just performed. No evidence of bleeding. 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 Biopsies were obtained to rule out the possibility of celiac sprue. Plan is for colonoscopy next day. DESCRIPTION OF PROCEDURE: The risks and benefits of the procedure were explained to the patient, those risks including but not limited to bleeding, perforation and the risk of sedation. She understood these risks and gave informed consent. Sedation was given using propofol per anesthesia. Next, a digital rectal exam was initially performed, which was normal. Next, using a standard Olympus colonoscope, scope was placed in the patient's anus and advanced under direct vision to the cecum. The overall prep was good. The cecum and ileocecal valve were normal in appearance. A 4 mm sessile polyp was noted in the ascending colon. This was removed with cold forceps, otherwise normal. A 3 mm sessile polyp noted in the transverse colon, also removed by cold forceps, otherwise normal. The descending colon was normal. Multiple small diverticula without inflammation or noted in the sigmoid colon. The rectal mucosa was normal. On retroflexion, no abnormalities were noted. The scope was then withdrawn and the procedure terminated. The patient tolerated the procedure well. IMPRESSION: 1. Two small colonic polyps. 2. Sigmoid diverticulosis. 3. Otherwise, normal colonoscopy. RECOMMENDATIONS: 1. Await biopsy results. 2. If polyps are hyperplastic, repeat in 10 years; if adenomatous polyp, repeat [address] [address] PROCEDURE REPORT Name: JORGITO MANNING Philomena Room #: 206-[facility] IN [facility].#: [id number] Admission: 08/13/19 Attend Phys: Odin Rudolph MD Discharge: 09/03/19 Date of : 57 Report #: [id number] in 5 years. 3. Continue to monitor hemoglobin. Recent stool Hemoccult negative. No signs of bleeding on exam today. Thank you for allowing me to participate in her care. By: [id number] Dneis Vargas MD /nt
[2019-08-13 15:30] VITALS: BP 127/75
[2019-08-13 17:38] LABS: HEMOGLOBIN 9.9 gm/dL (12.0-15.0); MCH 24.2 pg (26.0-34.0); MCHC 30.1 g/dL (28.0-37.0); MCV 80.2 fL (80.0-100.0); RBC 4.12 mil/uL (4.20-5.00); RDW 17.1 % (10.5-14.5); WBC 21.4 thou/uL (4.0-11.0)
[2019-08-13 17:41] LABS: CALCIUM 8.7 mg/dL (8.5-10.1); CREATININE 1.7 mg/dL (0.6-1.0); POTASSIUM 5.8 mmol/L (3.5-5.1)
[2019-08-13 20:00] VITALS: BP 112/66
--- NOTE | 2019-08-13 21:00 | NUR ---
ASSUMMED PT CARE AT APPROXIMATELY 1530. PT DIRECT ADMIT FROM [facility]. PT A&O X4. ASSESSMENT CHARTED. FALL PRECAUTIONS IN PLACE. PT DENIES HAVING SOB. PT DENIES HAVING CHEST PAIN. PT STATED SHE HAD ACUTE PAIN BILATERALLY IN LOWER EXTREMITIES. PT RECIEVIED ANALGESICS. PT STATED ANALGESICS DID NOT RELIEVE PAIN. INFORMED SUPERVISOR REFINING RN. RN STATED UNDERSTANDING AND STATED WOULD CALL FOR NEW ORDERS. PT AND PT'S FAMILY EDUCATED ABOUT POC. PT AND PT'S FAMILY STATED UNDERSTANDING AND DENIED HAVING FURTHER QUESTIONS. WOUND CARE CONSULTED. WOUND CARE STATED THEY WOULD KEEP DRESSINGS ON TILL TOMORROW TO TAKE NEW PICTURES OF WOUNDS. PT DENIED HAVING FURTHER CONCERNS. VITAL SIGNS STABLE.
[2019-08-13 22:51] VITALS: BP 100/48
--- NOTE | 2019-08-14 04:31 | NUR ---
PATIENT TRANSFERED FROM CCU. PAIN CONTROLLED THIS SHIFT.PATIENT REFUSED DRESSING CHANGE ATTEMPT X2 D/T INCREASE PAIN ON BLE. ELEVATED BLE. DRESSING TO BLE HAVE MINIMUM DRAINAGE.CALL LIGHT AND PERSONAL ITEM WITHIN REACH.PATIENT IN BED ASLEEP AT THIS TIME BREATHING REGULAR AND UNLABOURED.
[2019-08-14 08:25] VITALS: BP 98/60
--- NOTE | 2019-08-14 12:22 | NUR ---
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
[2019-08-14 16:20] VITALS: BP 108/62
--- NOTE | 2019-08-14 19:46 | NUR ---
Assumed pt care at 7am.Assessment completed.vss.Pt has bilateral lower extremities wound that she has been refusing drsg change.Pt constantly calling out for pain shot.Dr Rudolph notified,order noted.Pt reported not having pain relief despite q2h pain shot.Wound picture taken and placed in chart.Received call from Dr Spencer.Pt will be going for i&d in am.Pt dtr here later this evening.Updates given.Report off to aimee rn.
[2019-08-14 20:26] VITALS: BP 131/49
[2019-08-15 09:01] LABS: HEMATOCRIT 29.9 % (37.0-47.0); HEMOGLOBIN 9.1 gm/dL (12.0-15.0); MCH 24.2 pg (26.0-34.0); MCHC 30.5 g/dL (28.0-37.0); MCV 79.3 fL (80.0-100.0); RBC 3.77 mil/uL (4.20-5.00); RDW 17.2 % (10.5-14.5)
[2019-08-15 09:09] LABS: CALCIUM 8.2 mg/dL (8.5-10.1); CREATININE 0.8 mg/dL (0.6-1.0); POTASSIUM 4.7 mmol/L (3.5-5.1)
--- NOTE | 2019-08-15 13:20 | NUR ---
Assumed pt care at 7am.Pt in bed very miserable related to bilat lower extremities pain.Dr Rudolph notified on round and order noted.Oxy and gabapentin given with relief.Piv infiltared.Iv team replaced it and pt resumed ivf.At 1320,pt left for surgery per bed accompanied by friend.Will continue to monitor.
[2019-08-15 18:08] VITALS: BP 101/65
[2019-08-15 20:37] VITALS: BP 107/64
[2019-08-16 04:45] VITALS: BP 122/57
[2019-08-16 07:34] VITALS: BP 94/57
--- NOTE | 2019-08-16 09:17 | NUR ---
Pt requesting several items not typically allowed on heart healthy diet. Poor intake, Hx severe weight loss. Recommend to liberalize diet back to regular.
--- NOTE | 2019-08-16 09:43 | NUR ---
PT ADMITTED RELATED TO BILATERAL LE WOUNDS. CM REVIEWED CHART AND SPOKE WITH CARE TEAM. CM MET WITH PT AT BEDSIDE UPON ADMISSION. PT INDICATED SHE RESIDES IN AN APARTMENT ALONE WITH NO STEPS. 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 PT INDICATED 4WW IS BROKEN. PT HAD BEEN ON SERVICE WITH Lee Silber IN THE PAST. PT INDICATED THAT SHE IS RECEPTIVE TO HH OR POST ACUTE CARE STAY IF RECOMMENDED UPON DC. PT HAD I&D DONE YESTERDAY. CM TO FOLLOW INDICATED WITH DC PLANNING.
[2019-08-16 14:47] VITALS: BP 106/66
--- NOTE | 2019-08-16 16:05 | NUR ---
Received awake on bed. Due medications given as prescribed, able to swallow meds w/o difficulty. On room air. A+Ox4. On heart healthy diet- tolerating well; no nausea, no vomiting and no abdominal pain noted. With NS at 75cc/hr, infusing well at R hand. With bilateral leg wound dressing- in place; due for changing today. Maintained on isolation due to MRSA from wound. Assisted in ADLs. Vital signs stable. Complained of pain, due PRN pain medications given as prescribed. Wound team care to see patient today and changed dressing. Visited by friend and relative today. To continue monitoring patient.
[2019-08-16 20:15] VITALS: BP 109/65
[2019-08-17 08:48] LABS: HEMOGLOBIN 8.1 gm/dL (12.0-15.0); MCH 25.1 pg (26.0-34.0); MCV 80.9 fL (80.0-100.0); RBC 3.21 mil/uL (4.20-5.00); RDW 17.8 % (10.5-14.5); WBC 11.8 thou/uL (4.0-11.0)
[2019-08-17 08:58] LABS: CALCIUM 8.4 mg/dL (8.5-10.1); POTASSIUM 4.6 mmol/L (3.5-5.1)
[2019-08-17 09:01] VITALS: BP 89/58
--- NOTE | 2019-08-17 11:15 | NUR ---
Received awake on bed. Due medications given as prescribed, able to swallow meds w/o difficulty. On room air. Vital signs stable. A+Ox4. On soft diet- encouraged and assisted in eating and drinking. With SL at R hand- on IV antibiotics; pt's IV infiltrated- removed, tried to re-insert but unable to find viable veins- called IV team. Assisted in ADLs. Complained of pain, due PRN pain medications given as prescribed. With bilateral leg dressing in place- C/D/I, kept elevated; pt on low airloss mattress. Falls bundle in place. Followed up with IV team re: IV insertion, still a/w for IV line. To continue monitoring patient.
[2019-08-17 15:34] VITALS: BP 104/63
[2019-08-17 20:12] VITALS: BP 98/58
--- NOTE | 2019-08-18 06:56 | NUR ---
Pt. rested quietly at intervals during the night when checked on during frequent rounds. She did c/o pain to her bilateral lower legs (see emar) with some relief noted. Dressing to bilateral lower legs are intact. Up to the bedside comode with max assistance of two. Bed alarm is on.
[2019-08-18 07:18] VITALS: BP 93/58
--- NOTE | 2019-08-18 10:02 | NUR ---
Assumed pt care at 7am.Pt in bed sound asleep till breakfast time.Assessment completed.vss.Am meds given with breakfast and well tolerated.Ivf infusing as ordered.Pt reported looking for mobile phone.Rn assisted pt with searching and it was hidden in pt's bag.Assisted with tray setup for breakfast.Will continue to monitor.
[2019-08-18 17:33] VITALS: BP 101/65
[2019-08-18 21:22] VITALS: BP 101/59
[2019-08-19 05:10] LABS: HEMATOCRIT 26.8 % (37.0-47.0); HEMOGLOBIN 8.2 gm/dL (12.0-15.0); MCHC 30.5 g/dL (28.0-37.0); MCV 81.9 fL (80.0-100.0); PLATELET COUNT 698 thou/uL (150-400); RBC 3.27 mil/uL (4.20-5.00); RDW 18.4 % (10.5-14.5); WBC 14.6 thou/uL (4.0-11.0)
[2019-08-19 05:24] LABS: ALBUMIN 1.4 g/dL (3.4-5.0); CALCIUM 8.3 mg/dL (8.5-10.1); CREATININE 0.7 mg/dL (0.6-1.0); PHOSPHORUS 2.5 mg/dL (2.5-4.9); POTASSIUM 4.3 mmol/L (3.5-5.1); TOTAL BILIRUBIN 0.3 mg/dL (<0.1-1.0); TOTAL PROTEIN 6.9 g/dL (6.4-8.2)
--- NOTE | 2019-08-19 06:00 | NUR ---
Pt. rested quietly at short intervals during the night when checked on during frequent rounds. Pt. had like a couple of panic attacks during the night and expressed that she felt something else is going to happen to her. Emotional support given and gave pt. time to express her feelings which was a little helpful. She c/o some indigestion and order received from [facility] for tums and protonix (see orders). Pt. did verbalize that the meds helped with her indigestion. Pt. turned and repositioned and lower legs elevated. Bed alarm is on.
[2019-08-19 08:00] VITALS: BP 105/64
[2019-08-19 08:43] LABS: ABSOLUTE NEUTROPHILS 7.6 thou/uL (1.4-8.2); NUCLEATED RBCS 4 /100WBC
[2019-08-19 08:44] LABS: ANISOCYTOSIS 1+; HYPOCHROMASIA 1+; LARGE PLATELETS FEW; PLATELET ESTIMATE INCREASED; POLYCHROMASIA SLIGHT
--- NOTE | 2019-08-19 09:08 | HC ---
[facility] [address] [place] [address] CONSULTATION Name: JORGITO MANNING Room #: 463-P ADM IN M.R.#: [id number] Admission: 08/13/19 Attend Phys: Odin Rudolph MD Discharge: Date of : 57 Report #: [id number] THIS REPORT FOR: cc: Moris Cruz MD, Neal A. MD Althoff, Jeffrey R. MD ~ THIS REPORT FOR: //name// CC: Odin Montes DATE OF SERVICE: 08/13/2019 CHIEF COMPLAINT: Bilateral lower extremity ulcerations and infection. HISTORY OF PRESENT ILLNESS: This is a 64-year-old female patient with whom I am familiar from multiple previous hospitalizations. She has a history of chronic venous stasis dermatitis and venous ulcerations to bilateral lower extremities. She has been undergoing outpatient venous ablation procedures with Dr. Braun, but she normally follows up with her physicians down in [place] and therefore we do not see her on an ongoing basis. I last saw her during her last hospitalization and we had made some headway; however, she has had increasing pain, drainage and skin breakdown on her legs and she has been admitted due to the severity of pain and infection. PAST MEDICAL HISTORY: Positive for history of cellulitis. 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 SOCIAL HISTORY: Negative for alcohol or tobacco use. MEDICATIONS: Include Protonix, Advair Diskus, AccuNeb, Aricept, ProAir, Combivent, Zanaflex, Neurontin, Demadex, Mirapex, Minocin, Colace, Flonase, aspirin, OxyContin. ALLERGIES: ZOSYN, MEPERIDINE, SULFA, AND TAZOBACTAM. REVIEW OF SYSTEMS: CONSTITUTIONAL: The patient does complain of fever and chills. Denies recent weight loss. NEUROLOGICAL: The patient denies focal weakness, numbness or tingling. EYES: The patient denies visual changes, redness, or drainage. ENT: The patient denies earache, nasal drainage, sore throat. CARDIOVASCULAR: The patient denies chest pain or palpitations or diaphoresis. PULMONARY: The patient denies cough or shortness of breath. [address] [address] CONSULTATION Name: JORGITO MANNING Room #: 463-P [facility] IN [facility].#: [id number] Admission: 08/13/19 Attend Phys: Odin Rudolph MD Discharge: Date of : 57 Report #: [id number] GASTROINTESTINAL: The patient denies nausea, vomiting, diarrhea, abdominal pain. ORTHOPEDIC: The patient complains of severe pain, drainage and ulceration to her lower extremities. PSYCHIATRIC: The patient denies anxiety, irritability or depression. Other systems in a 14-point review of systems are negative. PHYSICAL EXAMINATION: VITAL SIGNS: At this time include temperature 97.0, pulse 85, respiratory rate 22, blood pressure 127/75. GENERAL: This is a chronically ill-appearing female patient who appears to be in severe distress. HEENT: Head normocephalic. Nose and throat are clear. NECK: Supple. LUNGS: Clear. HEART: Regular. ABDOMEN: Soft. Bowel sounds present. EXTREMITIES: Lower extremities demonstrate diminished distal pulses. She has significant edema and ulcerations with profuse amounts of yellow-green drainage. Extreme tenderness to palpation and lots of tissue loss across both lower legs. LABORATORY DATA: Includes white blood cell count 21,000 with a hemoglobin of 9.9. Sodium 126, potassium 5.8, chloride 93, CO2 of 20, BUN 48, creatinine 1.7, glucose is 112. CLINICAL IMPRESSION: 1. Severe venous dermatitis and ulceration to bilateral lower extremities. 2. Cellulitis and wound infection, bilateral lower extremities. 3. Sepsis due to lower extremity cellulitis. 4. Peripheral vascular disease with congenital single vessel runoff to the lower extremities, but no occlusions on angiography within the last year. RECOMMENDATIONS: At this point in time, cultures will be obtained. She will need empiric antibiotic therapy. We will consult Dr. Spencer for surgical debridement. We will recommend topical Silvadene, morphine for pain control, Xeroform, Kerlix and Ye, elevation of the legs. Amputation would be a consideration, although I have not discussed this option with her; however, if we were not able to get a meaningful healing due to her severe pain and history of recurring severe infection, this would be a possible consideration. I appreciate being asked to see the patient in consultation. <ELECTRONICALLY SIGNED> By: Dar Skinner MD 08/19/19 0908 [id number] Dar Skinner MD /nt
--- NOTE | 2019-08-19 12:45 | NUR ---
DISCHARGE PLANNING. POST ACUTE RECOMMENDED AT DISCHARGE. PATIENT WILL NEED IV ABX INFUSION AT DISCHARGE. PATIENT REFERRAL FAXED TO [facility] FOR DISCHARGE PLACEMENT NEEDS PER REQUEST. CALL PLACED TO [facility], [facility]. VOICEMAIL LEFT FOR [facility]. AWAITING RESPONSE. FOLLOWING.
[2019-08-19 15:00] VITALS: BP 123/69
--- NOTE | 2019-08-19 15:50 | NUR ---
WOUND CARE F/U; ROUNDING WITH DR LOUIS AND BORIS AURICULAR THERAPIST. THE BILATERAL LE WOUNDS LOOK WORSE THAN PREVIOUS DRESSING CHANGES. MORE PURULENT LOOKING DRAINAGE WITH INCREASED YELLOW WOUND BEDS. PAIN HAS INCREASED WELL. RECOMMENDATIONS; HOLD SLILVADINE MORPHINE CREAM. CONTINUE XEROFORM, ABD, KERLIX AND CONNER WRAP PREVIOUS. DISCUSSED WITH RN
--- NOTE | 2019-08-19 16:51 | NUR ---
PER PT AND FAMILY REQUEST REFERRAL HAD BEEN SENT TO [facility]. THEY INDICATED THEY CAN'T MEET PT'S NEEDS. REFERRAL SENT TO [facility] FOR REVIEW. CM TO FOLLOW INDICATED WITH DC PLANNING.
[2019-08-19 20:21] VITALS: BP 108/69
--- NOTE | 2019-08-19 21:06 | NUR ---
PT A&OX4, VSS, PAIN IN BILAT LE. WOUND NURSE DID DRESSING CHANGE TODAY. PAIN MEDICATION GIVEN. NO SIGNS OF DISTRESS. WILL CONTINUE TO MONITOR.
--- NOTE | 2019-08-20 03:46 | NUR ---
ASSUMED CARE OF PT AT 1900HRS. PT IS AOX4 AND LETS NEEDS BE KNOWN. FALL PRECAUTION IN PLACE. ABX TREATMENT CONTINUED. PT REPORTED PAIN AND WAS TREATED WITH PRN PAIN MEDS. PT TURNED Q2-3H. PT WAS ABLE TO SLEEP PART OF THE SHIFT. VSS AND NO S/S OF ACUTE DISTRESS. WILL CONTINUE TO MONITOR.
--- NOTE | 2019-08-20 12:50 | NUR ---
[facility] INDICATED THAT THEY WOULDN'T BE ABLE TO ACCEPT PT WOUNDS TOO EXTENSIVE. LEXIE SPOKE WITH BORIS NURSE AND SHE ASKED IF 5N COULD ASSESS FOR POSSIBLE ADMISSION FOR CONTINUED PULSE LAVAGE. LEXIE SPOKE WITH 5N [facility] THEY WILL CONSULT. CM TO FOLLOW INIDCATED WITH DC PLANNING.
[2019-08-20 15:33] VITALS: BP 90/57
--- NOTE | 2019-08-20 16:16 | NUR ---
CARE TEAM INDICATED THAT THEY MIGHT BE LOOKING A PEG BEING PLACED. AWAITING RESPONSE FROM SURGICAL TEAM TO GET IDEA TO TIME FRAME. CM TO FOLLOW INDICATED WITH DC PLANNING.
--- NOTE | 2019-08-20 20:05 | NUR ---
Assumed pt care this am, with extensive wounds on both legs, pulse lavage intiated byt PT was not tolerated well. Wound dressing change done, pain managed with medication. Isolation maintained. Pt is asleep for most of the day, especially after pain meds are given. Diet and medications are well tolerated. POC followed. Pt would be asleep for meals, does not want to be disturbed. POC followed. Enndorsed to the night nurse.
[2019-08-20 21:34] VITALS: BP 94/80
--- NOTE | 2019-08-21 02:10 | NUR ---
PT CARE ASSUMED WITH PT IN BED @1900.PT IS A/O X4.PT WOUND DRESSING ON BLE C/D/I.PT APPEARED TO BE VERY SLEEPY.PT SAYS DOES WANT IV MEDICATION.WAS ABLE TO GIVE VANCOMYCIN AND MEROPENEM.PT HAD A BM DURING SHIFT.PT IS ON CONTACT ISOLATION PRECAUTION FOR MRSA WOUNDS.PT ON SCHEDULED PAIN MEDICATION.WILL CONTINUE TO MONITOR PER POC
[2019-08-21 08:00] VITALS: BP 92/56
[2019-08-21 13:46] VITALS: BP 98/57
[2019-08-21 20:32] VITALS: BP 98/63
--- NOTE | 2019-08-22 06:37 | NUR ---
Assessments completed. pt a&ox4. pain wasn't controlled with PO pain meds but iv med helped. dressing to bilateral legs clean, dry and intact, elevated with pillows. pt is looking forward to her procedure today so her legs can start feeling better. no s/s of distress. will cont to monitor
[2019-08-22 08:17] VITALS: BP 85/61
--- NOTE | 2019-08-22 12:57 | NUR ---
met with patient and discussed dc planning. Referrals to skilled who reports cannot meet patients needs due to wound care. patients emergency contact Heather Musa present. Reviewed [facility] patient with medicare/ [place] medicaid. Patient agreeable for eval. Emergency contact would like to be present for eval. Left message with Estrella liason to please contact Ms Musa prior to arrival for onsite eval.
--- NOTE | 2019-08-22 20:45 | NUR ---
PT A&OX4, VSS, PAIN IN LOWER LEGS. PATIENT HAD I&D AND PEG TUBE PLACEMENT. NO SIGNS OF DISTRESS. WILL CONTINUE TO MONITOR.
[2019-08-22 20:51] VITALS: BP 97/69
[2019-08-23 05:31] VITALS: BP 91/54
--- NOTE | 2019-08-23 06:53 | NUR ---
No acute concerns overnight. pain controlled with current pain regimen. pt was able to get on and off sleep. wounds to bilat legs draining serosanguinous fluid. dressings reinforced. contact prec in place. no s/s of distress. will cont to monitor
[2019-08-23 08:16] VITALS: BP 98/63
--- NOTE | 2019-08-23 10:41 | NUR ---
When ready to use PEG, recommend start with 1 can Jevity 1.5, 3x day between meals. Recommend water flush of 175ml after each bolus.
--- NOTE | 2019-08-23 12:41 | NUR ---
WOUND CARE NOTE ROUNDING W/ DR HERIBERTO AND BORIS RN, HEBREW CANTOR PRESENT, PLUS STUDENTS, PAIN NOTED WHEN REMOVING DRSGS, PAIN MED GIVEN, DEBRIDEMENT DONE YESTERDAY. OPEN AREA L UPPER LEG WOUND 3.5CM DEPTH, PACKED W/ XEROFORM PER DR ORDERS. OTHER WOUNDS BILAT LOWER LEGS W/ MOST BEEFY RED TISSUE, SMALL AREAS WHITISH/YELLOW SLOUGH BUT MUCH LESS SINCE DEBRIDEMENT, SCANT BLEEDING, CLEANSED W/ NS, XEROFORM GAUZE, ABD, KERLIX APPLIED AND TAPED SECURELY, PHOTOS TAKEN HEBREW CANTOR AWARE RECOMMENDATIONS CONT CURRENT TX, CONT LOW AIR LOSS PUMP TO BED, PAIN MEDS PRIOR TO DRSG CHANGES AND PRN
--- NOTE | 2019-08-23 14:32 | NUR ---
Shay EVALED TODAY THEY ARE ATTEMPTING TO DETERMINE MEDICARE DAYS USED. SP WITH [facility] MAY 11-, MAY 27 [facility] JUN 21-, 1 MONTH USED FOR REHAB AT [facility] IN [place] AND ACUTE DAYS USED IN HOSPITAL. ALERTED TO SHAY UNSUARE OF ACCURACY OF INFORMATION OTHER FACILITIES MAY NOT HAVE BILLED. PATIENT REPORTS AGREEABLE TO [facility] TRANSFER. AWAIT ACCEPTANCE.
--- NOTE | 2019-08-23 19:24 | NUR ---
Assumed pt care this am, pain managed with medications. Wound dressing done by the wound care team. Low air loss pump attached to the bed, PEG tube in place awaiting orders for feeding and if ok to use. Isolation maintained, VS stable. POC followed, no signs or other verbalizations of distress have been noted. Once medications are given pt is able to sleep for a few hours. Pt does not get up to use the commode and wound prefer to use the bed lombardo. Pt is able to turn and help herself in reositioning. Endorsed to the [facility] nurse.
[2019-08-23 20:02] VITALS: BP 103/66
--- NOTE | 2019-08-24 03:23 | NUR ---
Assumed pt care @1915. pt is having a much better night. pt is sleeping well with little interruptions. pain meds given with relief. bilat lower ext wound dressings clean, dry and intact. no s/s of acute distress. will cont to monitor. contact prec maintained
[2019-08-24 08:56] VITALS: BP 85/49
[2019-08-24 10:43] LABS: HEMATOCRIT 23.3 % (37.0-47.0); HEMOGLOBIN 7.1 gm/dL (12.0-15.0); MCH 24.8 pg (26.0-34.0); MCHC 30.4 g/dL (28.0-37.0); MCV 81.7 fL (80.0-100.0); PLATELET COUNT 562 thou/uL (150-400); RBC 2.85 mil/uL (4.20-5.00); RDW 18.9 % (10.5-14.5); WBC 8.9 thou/uL (4.0-11.0)
[2019-08-24 11:15] LABS: ALBUMIN 1.5 g/dL (3.4-5.0); CREATININE 0.7 mg/dL (0.6-1.0); MAGNESIUM 2.1 mg/dL (1.8-2.4); POTASSIUM 4.7 mmol/L (3.5-5.1); TOTAL BILIRUBIN 0.2 mg/dL (<0.1-1.0); TOTAL PROTEIN 5.9 g/dL (6.4-8.2)
[2019-08-24 11:16] LABS: ABSOLUTE NEUTROPHILS 4.5 thou/uL (1.4-8.2); ANISOCYTOSIS 1+; HYPOCHROMASIA 2+; NUCLEATED RBCS 3 /100WBC; PLATELET ESTIMATE INCREASED
[2019-08-24 15:43] VITALS: BP 102/57
--- NOTE | 2019-08-24 19:59 | NUR ---
Assumed pt care this am, VS stable pt would be on the low side from BP as per pt this is her norm. Wound dressing change done, pain managed with medication. PEG tube used today as per order, 2 cans of jevity given with 2 x of 175 H2O flush. Pt is very picky and slow when her meals but would take at least 2 to 3 cartons of milk per meal. Pt would constantly ask for pain meds though there is no indication of pain and pt would b asleep for most of the time. Clotrimazole and nystatin endorsed to the night nurse since pt has not eaten her meals and last jevity to be given after her meal. 2 large watery BM noted. POC followed, isolation maintained. Endorsed to the night nurse.
[2019-08-24 20:24] VITALS: BP 123/58
--- NOTE | 2019-08-25 04:00 | NUR ---
PAIN CONTROLLED THIS SHIFT. BLE DRESSING C/D/I. CALL LIGHT AND PERSONAL ITEM WITHIN REACH. PATIENT ON CONTINOUS OXYGEN 3L NO SHORTNESS OF AIR OR DISTRESS THIS SHIFT.PATIENT IN BED ASLEEP AT THIS TIME BREATHING REGULAR AND UNLABOURED.
[2019-08-25 08:00] VITALS: BP 81/43
[2019-08-25 08:27] VITALS: BP 81/43
[2019-08-25 15:23] VITALS: BP 96/60
[2019-08-25 19:48] LABS: HEMATOCRIT 23.8 % (37.0-47.0); HEMOGLOBIN 7.1 gm/dL (12.0-15.0)
[2019-08-25 19:57] VITALS: BP 102/65
--- NOTE | 2019-08-25 20:38 | NUR ---
A/O, calm and cooperative; compained pain in legs, medicaiton given and worked. Tube feeding 80% for dinner due to patient's request, tolerated well. Van at 1800 was not finished due to patient complained of pain in IV access, the night nurse has been reported to about it.
--- NOTE | 2019-08-25 21:04 | NUR ---
VAT CONSULTED FOR A ML FOR THIS PT FOR VANCO, MEREM, PRBC AND PRN MEDS. THIS PT HAD A HX OF DIFFICULT IV ACCESS ISSUES AND A LIMB ALERT ON THE LT ARM. RT ARM HAS HAD MULITPLE INFILTRATIONS IN THE LAST 12 DAYS. THIS PT WOULD BENEFIT FROM A TUNNELED LINE OR A PORT HER BILAT LOWER LEG WOUNDS ARE CHRONIC AND SHE IS SEEN MULTIPLE TIMES PER YEAR FOR IV ABX AND THIS VAD ISSUE IS ONGOING. PT NEEDS THE PRBC AND IV ABX TONIGHT SO IR FOR A MORE APPROPRIATE LINE IS NOT AVAILABLE. PICC PLACED IN RUABRACHIAL JUST DISTAL FROM THE AXILLARY HER VESSELS ARE DEPLETED DUE TO THE MULTIPLE INFILTRATIONS. HEATING PAD ORDERED FOR HER RT ARM FOR COMFORT FROM PHLEBITIS AND INFILTRATIONS. CXR FOR PICC TIP CONFIRMED TIP IS AT THE [facility] AND RELEASED FOR USE.
[2019-08-25 23:01] VITALS: BP 84/53; BP 87/58
--- NOTE | 2019-08-26 03:54 | NUR ---
PAIN CONTROLLED THIS SHIFT. PATIENT HAD 1 UNIT OF BLOOD AND TOLERATED WELL. PATIENT TEMPERATURE IS 98.0 AT THIS TIME. PATIENT HAS DRESSING ON BLE DRESSING IS C/D/I. PATIENT IN BED ASLEEP AT THIS TIME BREATHING REGULAR AND UNLABOURED.
[2019-08-26 05:25] LABS: HEMATOCRIT 25.1 % (37.0-47.0); HEMOGLOBIN 7.6 gm/dL (12.0-15.0); MCH 24.9 pg (26.0-34.0); MCHC 30.2 g/dL (28.0-37.0); MCV 82.4 fL (80.0-100.0); RBC 3.04 mil/uL (4.20-5.00); RDW 18.7 % (10.5-14.5); WBC 8.4 thou/uL (4.0-11.0)
[2019-08-26 05:47] LABS: ALBUMIN 1.4 g/dL (3.4-5.0); CALCIUM 7.8 mg/dL (8.5-10.1); CREATININE 0.6 mg/dL (0.6-1.0); MAGNESIUM 2.3 mg/dL (1.8-2.4); PHOSPHORUS 2.7 mg/dL (2.5-4.9); TOTAL BILIRUBIN 0.2 mg/dL (<0.1-1.0); TOTAL PROTEIN 5.8 g/dL (6.4-8.2)
[2019-08-26 05:54] LABS: PLATELET COUNT 467 thou/uL (150-400)
[2019-08-26 07:30] VITALS: BP 84/51
[2019-08-26 09:09] LABS: ABSOLUTE NEUTROPHILS 3.8 thou/uL (1.4-8.2); ANISOCYTOSIS 2+; METAMYELOCYTES 1 %; NUCLEATED RBCS 2 /100WBC; PLATELET ESTIMATE NORMAL; POLYCHROMASIA 1+
--- NOTE | 2019-08-26 14:23 | NUR ---
WOUND CARE F/U; ROUNDING WITH DR LOUIS AND BORIS HAND UMBRELLA TIPPER. THE PATIENT IS S/P WOUND DEBRIDEMENT. THE WOUNDS ARE IT DIRECTOR BUT LARGER THAN i HAVE SEEN. THE WOUNDS REMAIN VERY TENDER. THE PATIENT TOLERATED THE DRESSING CHANGE WELL. THERE IS NO ODOR OR OTHER S/S OF INFECTION. RECOMMENDATION; CONTINUE POC FOR NOW. DISCUSSED WITH STAFF
--- NOTE | 2019-08-26 14:32 | NUR ---
Rec: DC bolus feeding. Jevity 1.5 60ml/hr, 6p to 6a.
--- NOTE | 2019-08-26 14:39 | NUR ---
Pt c/o bolus feeds making her nauseated and does not want to eat during day. Recommend change tube feed regimen to jevity 1.5, 60ml/hr 6p-6a (12hrs day)
--- NOTE | 2019-08-26 15:41 | NUR ---
Patient transferring to telemetry. Discussed with patient cont plan for [facility]. She is in agreement but appearts frustrated with los of hospital stay. Offered encouragement. Sp with Ms Musa who is her DPOA. She is in agreement with plan.
[2019-08-26 17:00] VITALS: BP 97/52
--- NOTE | 2019-08-26 18:28 | NUR ---
PT TRANSFERED FROM 4TH FLOOR AND IS ORIENTD TO ROOM 206. BED LOW AND LOCKED, SIDE RAILS UP X3, CALL LIGHT IN REACH AND TELE APPLIED. WILL CONTINUE TO ASSESS.
--- NOTE | 2019-08-26 20:25 | NUR ---
Patient asked for Medical explanation about being in the hospital , not able to attend an appointment by , asked to fax to Andressa Busch, , the social stated that she would deal with it; the patient's friend Kristin hoped to be called if something was wrong with the patient: [phone]; Patient was transferred to 206, 20 minutes after arriving in 206, patient stated that she forgot she had jewel in the inside horticultural specialty grower the bed table in her formal room 463; the staff hurried to 463, 463 had been cleaned, no jewel was found; the staff reported it to the supervisor border department: Haylee. Haylee asked the staff to call the patient's nurse in ccu, the staff tried twice, could not get a chance to talk to the ccu nurse, the staff called supervisor border department Haylee, Haylee said she would deal with it; patient had a air pump for the bed, Haylee said the pump could go with the patient.
[2019-08-26 20:47] VITALS: BP 101/62
--- NOTE | 2019-08-26 21:01 | NUR ---
The pricing intern found a computer and jewel , the staff sent them to the patient around 2049, patient claimed she got everything.
--- NOTE | 2019-08-26 21:37 | NUR ---
Dr. Rudolph claimed that no needle on the left arm of the patient, only Blood pressure check, and the BP cuff needs to be taken away from the patient immediately from the patient. but patient refused to have the Alert armband on. The nurse in [facility]U has been reported to about it.
[2019-08-27] VITALS (8 sets, daily range): BP systolic 93–152; BP diastolic 51–87
--- NOTE | 2019-08-27 07:51 | NUR ---
ASSUMED PT CARE AT 1900, PT IS ALERT AND ORIENTEDX4, DENIES SOB, COMPLAINS OF PAIN ON THE LOWER EXTREMITIES, GAVE PAIN MEDICINE ORDERED WITH PARTIAL RELIEF, RECEIVED JEVITY 1.5 ORDERED, RESTED WELL, WILL CONTINUE TO MONITOR
--- NOTE | 2019-08-27 14:49 | 2DMMODE ---
[facility] [place] [address] 2 D/M-MODE ECHOCARDIOGRAM Name: JORGITO MANNING Room #: 206-P ADM IN M.R.#: [id number] Admission: 08/13/19 Attend Phys: Odin Rudolph MD Discharge: Date of : 57 Report #: [id number] THIS REPORT FOR: cc: Moris Cruz MD, Neal A. MD Lundgren, Craig H. MD [facility] ~ APPROVED REPORT Study performed: 08/27/2019 08:23:48 EXAM: Comprehensive 2D, Doppler, and color-flow Echocardiogram Patient Location: Bedside Room #: 206 Status: routine BSA: 2.00 HR: 80 bpm BP: 105/59 mmHg Other Information Study Quality: Good Indications Sepsis, HTN, Hx. AFib 2D Dimensions RVDd: 42.91 mm IVSd: 10.10 (7-11mm) LVOT Diam: 19.72 (18-24mm) LVDd: 42.52 mm PWd: 11.88 (7-11mm) Ascending Ao: 32.96 (22-36mm) LVDs: 37.02 (25-40mm) Aortic Root: 27.75 mm Volumes Left Atrial Volume (Systole) Single Plane 4CH: 91.95 mL Single Plane 2CH: 98.55 mL LA ESV Index: 52.00 mL/m2 Aortic Valve AoV Peak Meir.: 2.61 m/s AO Peak Gr.: 27.21 mmHg LVOT Max P.53 mmHg AO Mean Gr.: 14.95 mmHg AO V2 Mean: 1.81 m/s LVOT Max V: 1.28 m/s AO V2 VTI: 52.49 cm JOSE R Vmax: 1.50 cm2 [facility] [address] [place] [address] 2 D/M-MODE ECHOCARDIOGRAM Name: JORGITO MANNING Room #: [facility] IN ..#: [id number] Admission: 08/13/19 Attend Phys: Odin Rudolph MD Discharge: Date of : 57 Report #: [id number] Mitral Valve MV Decel. Time: 270.43 ms MV E Max Meir.: 1.52 m/s MV Max Meir.: 4.10 m/s MV Mean Meir.: 3.40 m/s IVRT: 78.43 ms TDI E/Lateral E': 16.89 Lateral E' Meir.: 0.09 m/s Pulmonary Valve PV Peak Meir.: 1.31 m/s PV Peak Gr.: 6.91 mmHg Tricuspid Valve TR Peak Meir.: 2.56 m/s RAP Estimate: 15.00 mmHg TR Peak Gr.: 26.21 mmHg PA Pressure: 41.00 mmHg Left Ventricle The left ventricle is normal size. There is normal LV segmental wall motion. There is normal left ventricular wall thickness. The left ventricular systolic function is normal. The left ventricular ejection fraction is within the normal range. LVEF is 60%. This study is not technically sufficient to allow evaluation of the LV diastolic function. Right Ventricle The right ventricle is normal size. The right ventricular systolic function is normal. Atria Left atrium is severely dilated. Left atrial volume index 52 ml/m^2. Right atrium is moderately dilated. Aortic Valve Moderate aortic calcification, trileaflet; mild stenosis Mild aortic regurgitation. There is mild valvular aortic stenosis. Calculated aortic valve area is 1.5 cm2 with maximum pressure gradient of 27 mmHg and mean pressure gradient of 15 mmHg. Mitral Valve The mitral valve is normal in structure. Moderate mitral regurgitation. No evidence of mitral valve stenosis. [facility] [address] [place] [address] 2 D/M-MODE ECHOCARDIOGRAM Name: JORGITO MANNING Philomena Room #: 206-P [facility] IN ..#: [id number] Admission: 08/13/19 Attend Phys: Odin Rudolph MD Discharge: Date of : 57 Report #: [id number] Tricuspid Valve The tricuspid valve is normal in structure. Moderate tricuspid regurgitation. Estimated pulmonary artery pressure of 40 mmHg. Pulmonic Valve The pulmonary valve is normal in structure. Trace pulmonic regurgitation. Great Vessels The aortic root is normal in size. The ascending aorta is normal in size. IVC is dilated and collapses <50% with inspiration. Pericardium There is no pericardial effusion. <Conclusion> The left ventricular systolic function is normal. There is normal LV segmental wall motion. LVEF is 60%. Both atria are dilated Moderate aortic calcification, trileaflet; mild stenosis. Mild aortic regurgitation. Calculated aortic valve area is 1.5 cm2 with maximum pressure gradient of 27 mmHg and mean pressure gradient of 15 mmHg. The mitral valve is normal in structure. Moderate mitral regurgitation. Moderate tricuspid regurgitation. Estimated pulmonary artery pressure of 40 mmHg. There is no pericardial effusion. <ELECTRONICALLY SIGNED> By: Luis Fernando Rodriguez MD, FACC 08/27/19 1448 1448 1448 Luis Fernando Rodriguez MD, FACC /INF
--- NOTE | 2019-08-27 17:03 | EKG ---
[facility] [address] [place] [address] ELECTROCARDIOGRAM REPORT Name: JORGITO MANNING Room #: 206- ADM IN M.R.#: [id number] Admission: 08/13/19 Attend Phys: Odin Rudolph MD Discharge: Date of : 57 Report #: [id number] THIS REPORT FOR: cc: Moris Cruz MD, Neal A. MD Couchonnal, Luis F. MD ~ THIS REPORT FOR: //name// [facility] Test Date: 2019-08-27 Test Time: 13:28:33 Pat Name: JORGITO MANNING Department: Room: 206 Gender: F Field Sales Trainer: Mateo HUGGINS : 1955 Requested By: Odin Rudolph Order Number: [id number] MD: Tahir Becerra Measurements Intervals [place] Rate: 70 P: OR: QRS: 35 QRSD: 92 T: 43 QT: 391 QTc: 422 Interpretive Statements Atrial fibrillation Low voltage, extremity leads Compared to ECG 08/20/2014 19:46:59 Low QRS voltage now present Myocardial infarct finding no longer present Electronically Signed On 08-27-2019 17:02:49 SCISSORS GRINDER by Tahir Becerra [email or web address] <ELECTRONICALLY SIGNED> By: Tahir Becerra MD 08/27/19 1702 1328 1328 Tahir Becerra MD /EPI
--- NOTE | 2019-08-27 17:30 | NUR ---
PT CARE ASSUMED APPROX 0700. ASSESSMENT CHARTED. DENIES SOA. REPORTS ADEQUATE PAIN MANAGEMENT OF BLE WOUNDS. WOUND CARE DONE PER ORDER. PT WAS ANXIOUS ABOUT SOME APPROACHES OF THIS NURSE vs. WOUND CARE NURSE. PT EDUCATED AND INFORMED THAT HER CONCERNS SHOULD BE VOICED TO THE [facility]. PT REFUSES TURNS REPORTING THAT SHE CAN SELF TURN BUT SHE DOESN'T. PT EDUCATED ON NOT TURNING. VENOUS STUDY COMPLETED WITHOUT ISSUE. RIGHT NECK DSG C/D/I. APPETITE POOR. EDUCATED ON DIET. PT TOLERATING POC. NO DISTRESS NOTED.
--- NOTE | 2019-08-28 03:50 | NUR ---
PT ALERT AND ORIENTED. VSS. C/O AT THE PEG TUBE INSERTION SITE AND GENERAL LE PAIN. PRN PAIN MEDS GIVEN. Q2 TURNS INITATED. TUBE FEEDING A6 60ML/HR. PT TOLERATES WELL. PT ALSO SEEM TO BE IN AND OUT OF AFIB. RATE CONTOLLED. DENIES NAUSEA, PALPITATIONS AND SOB. WILL CONTINUE WITH CURRENT POC.
[2019-08-28 05:32] VITALS: BP 97/56
[2019-08-28 07:30] VITALS: BP 105/64
[2019-08-28 12:00] VITALS: BP 122/73
--- NOTE | 2019-08-28 13:16 | NUR ---
WOUND CARE F/U; ROUNDING WITH DR LOUIS AND BORIS CLINICAL OUTCOMES MANAGER. THE PATIENT LE WOUNDS BILATERALLY WERE ASSESSED. THE WOUNDS SHOW MUCH IMPROVEMENT. MUCH LESS PAIN. MORE BEEFY RED TISSUE PRESENT WITH LESS NON VIABLE TISSUE. RECOMMEDNATION; CONTINUE CURRENT TREATMENT, PIC'S TAKEN RN PRESENT
[2019-08-28 17:00] VITALS: BP 102/58
[2019-08-28 17:28] LABS: HEMATOCRIT 26.1 % (37.0-47.0); MCH 24.5 pg (26.0-34.0); MCHC 30.6 g/dL (28.0-37.0); MCV 80.1 fL (80.0-100.0); RBC 3.26 mil/uL (4.20-5.00); RDW 18.5 % (10.5-14.5)
--- NOTE | 2019-08-28 18:11 | NUR ---
Tenative plan transfer to [place] in am. Arianna visited with patient and sp with Ms Musa and updated. Sp with Dr Barron who now is interested in [facility] eval. Faxed referral to [facility]. Discussed with patient and Ms Brody.
[2019-08-28 18:21] VITALS: BP 122/73
--- NOTE | 2019-08-28 19:19 | NUR ---
ASSUMED CARE OF PT AT SHIFT CHANGE. ASSESSMENTS CHARTED. MEDS GIVEN PER SEP. PT A&OX4, COOPERATIVE. C/O PAIN TREATED WITH IV AND PO MEDS WITH PARTIAL RELIEF. PT EATING WELL DURING THE DAY. POSSIBLE DC TO [facility] TOMORROW. WILL CONTINUE TO MONITOR AND FOLLOW POC.
[2019-08-28 20:24] VITALS: BP 97/52
[2019-08-29 00:15] VITALS: BP 117/67
[2019-08-29 03:53] VITALS: BP 108/57
--- NOTE | 2019-08-29 04:30 | NUR ---
ALERT AND ORIENTED. PAIN A LITTLE BETTER CONTROLLED TONIGHT. VSS. NOC TUBE FEEDING MAINTAINED., PT TOLERATES WELL. DENIES CHEST PAIN. NAUSEA OR VOMITING. WILL CONTINUE WITH PLAN OF CARE.
[2019-08-29 06:47] LABS: CREATININE 0.8 mg/dL (0.6-1.0); POTASSIUM 3.1 mmol/L (3.5-5.1)
[2019-08-29 07:30] VITALS: BP 112/63
[2019-08-29 07:43] LABS: HEMATOCRIT 24.9 % (37.0-47.0); HEMOGLOBIN 7.5 gm/dL (12.0-15.0); MCH 24.1 pg (26.0-34.0); MCHC 29.9 g/dL (28.0-37.0); MCV 80.5 fL (80.0-100.0); RBC 3.1 mil/uL (4.20-5.00); RDW 18.3 % (10.5-14.5); WBC 12.8 thou/uL (4.0-11.0)
--- NOTE | 2019-08-29 10:55 | NUR ---
[facility] liason here to rell and visit with the pt and her dpoa Heather at bedside. [facility] can accept and would have a bed for her tomorrow. GI seeing her now and plans for scope d/t iron deficiency in progress. No dc today. [facility] notified of pt desire for [facility] location.
[2019-08-29 11:30] VITALS: BP 91/48
[2019-08-29 11:40] LABS: % SATURATION 6 % (20-39); IRON 9 ug/dL (50-170); TIBC 142 ug/dL (250-450)
[2019-08-29 16:30] VITALS: BP 91/48
[2019-08-29 20:54] VITALS: BP 97/58
--- NOTE | 2019-08-30 00:41 | HC ---
[facility] [address] [place] [address] CONSULTATION Name: JORGITO MANNING Room #: 206-P ADM IN M.R.#: [id number] Admission: 08/13/19 Attend Phys: Odin Rudolph MD Discharge: Date of : 57 Report #: [id number] THIS REPORT FOR: cc: Moris Cruz MD, Neal A. MD Graessle, Donna M. DO ~ CC: Odin Plascencia MD DATE OF SERVICE: 08/29/2019 NEUROLOGY CONSULTATION The patient of Dr. Odin Rudolph and Dr. Moris Cruz and Dr. Kong Montes and Dr. Curtis Thompson. CHIEF COMPLAINT: This is a very pleasant 64-year-old white female who I am asked to see for evaluation of anemia that it turns out is secondary to iron deficiency. The patient denies any hematemesis, hematochezia or melena. She feels weak and tired. I would like to know how she can evaluate this further and get it treated. Currently, she is in the hospital for ongoing cellulitis and what sounds like vascular insufficiency of both lower extremities. Apparently, this has been going on for approximately a year and she has undergone debridements and multiple treatments for these leg ulcers. PAST MEDICAL HISTORY: Significant for obesity. She has peripheral neuropathy. She has had cellulitis for the last year. The patient has poor oral intake and has a G-tube for nocturnal feedings. Lupus diagnosed in 2003 and scleroderma, COPD and CHF. PAST SURGICAL HISTORY: Significant for tonsillectomy and adenoidectomy, splenectomy, thyroidectomy, cholecystectomy. She says that she had some type of a colon perforation in the past for which she had to be life flighted to [place] from [place], [place] and had emergency surgery. ALLERGIES: CARDIZEM CD, DEMEROL, SULFA, ZOSYN AND DILANTIN. SOCIAL HISTORY: The patient does not drink alcohol or smoke cigarettes. FAMILY HISTORY: Significant for colon cancer and colon polyps in her grandmothers. [facility] [address] [place] [address] CONSULTATION Name: JORGITO MANNING Room #: [facility] IN .R.#: [id number] Admission: 08/13/19 Attend Phys: Odin Rudolph MD Discharge: Date of : 56 Report #: [id number] REVIEW OF SYSTEMS: She admits to intermittent dysphagia to both solids and liquids. It is completely unpredictable. She also admits to gastroesophageal reflux. She has a history of a hiatal hernia and denies any history of peptic ulcer disease. She said her weight is stable with the PEG tube feedings. She denies any hematemesis, hematochezia or melena. She has constipation. She has diffuse abdominal pain that she says is related to her mesh surgery. She has a decreased appetite and has a PEG tube for nocturnal feedings to try to make up the difference. She denies any nausea or vomiting. She denies any jaundice or hepatitis or pancreatitis. She has had cholecystectomy. PHYSICAL EXAMINATION: GENERAL: Reveals a well-developed, obese 64-year-old white female, in no apparent distress at the time of the examination, who is awake, alert, oriented x 4 and cooperative. She is very pale. HEENT: She is normocephalic and atraumatic and anicteric. HEART: Irregularly irregular. LUNGS: Clear bilaterally. ABDOMEN: Soft with positive bowel sounds. There is mild diffuse tenderness, but no rebound or guarding. EXTREMITIES: The patient has below the knee ulcerations and dressings bilaterally, probably secondary to ischemic ulcerations. NEUROLOGIC: I did not test her extensively. IMPRESSION: 1. Iron deficiency anemia of uncertain etiology. 2. History of iron deficiency anemia documented in the chart back in 2013. 3. Gastroesophageal reflux. 4. Intermittent dysphagia to both solids and liquids. 5. History of a hiatal hernia. 6. History of colon perforation. 7. Constipation. 8. The patient is a PEG tube for nocturnal feedings. Her appetite has been poor generally. 9. Abdominal pain and the patient says is related to her intra-abdominal mass. 10. The patient is status post splenectomy. RECOMMENDATIONS: My recommendations were to start her on a clear liquid diet today. We will keep her n.p.o. after midnight. She should receive a MiraLax prep this afternoon. We will guaiac her stool. EGD and colonoscopy tomorrow by Dr. Brewster. The patient is agreeable with this plan. If the EGD and colonoscopy are unrevealing as to the etiology of her iron deficiency anemia, she will also need to have a small bowel video capsule study done. [facility] [address] [place] [address] CONSULTATION Name: JORGITO MANNING Room #: 206-P ADM IN M.Chris.#: [id number] Admission: 08/13/19 Attend Phys: Odin Rudolph MD Discharge: Date of : 57 Report #: [id number] Thank you very much once again for allowing me to participate in her care, Dr. Knight. <ELECTRONICALLY SIGNED> By: Nilda Grove DO 08/30/19 0041 1216 25 Nilda Grove DO /nt
[2019-08-30 04:26] VITALS: BP 91/57
--- NOTE | 2019-08-30 05:22 | NUR ---
ASSUMED PT CARE AROUND 191. PT IN BED WITH LEGS ELEVATED. PT C/O PAIN TO BOTH LOWER EXTREMITIES. PAIN MEDICATION GIVEN PER EMAR. PT WAS PREPPED FOR PROCEDURES IN A.M. PT RESTED THRU NIGHT WITH MINIMAL INTERRUPTIONS. GROUPED CARES. WILL CONTINUE TO MONITOR PT PER PHYSICIAN ORDERS.
[2019-08-30 08:35] VITALS: BP 116/58
[2019-08-30 10:24] LABS: HEMOGLOBIN 8.3 gm/dL (12.0-15.0)
[2019-08-30 11:34] VITALS: BP 106/53
--- NOTE | 2019-08-30 16:00 | NUR ---
[facility] TO [facility] MONDAY. PT'S EGD/COLONOSCOPY HELD TODAY D/T HYPOXIA AND WORSENING CXR. [facility] LIASON UPDATED. WILL FOLLOW.
[2019-08-30 16:13] VITALS: BP 99/44
--- NOTE | 2019-08-30 16:54 | NUR ---
FAXED TODAY'S PROGRESS NOTES TO [facility] RECEIVED CONFIRMATION. DP TO FOLLOW.
--- NOTE | 2019-08-30 18:55 | NUR ---
PT CARE ASSUMED APPROXIMATELY 0700. PT ASSESSMENTS CHARTED. PT MEDICATION CHARTED. WOUND CARE PERFORMED TO BILAT LOWER EXTREMITIES. PT INCONTINENT REQUIRING MULTIPLE LINEN CHANGES. LEGS ELEVATED. PT CAPABLE OF MOVING WELL IN THE BED.
[2019-08-30 21:00] VITALS: BP 137/60
[2019-08-31 05:16] VITALS: BP 81/49
--- NOTE | 2019-08-31 05:25 | NUR ---
ASSUMED PT CARE AROUND 1900. PT RESTING IN BED WITH C/O PAIN IN RIGHT AND LEFT LOWER EXTREMITIES. PT HAS HAD ADEQUATE OUTPUT. WILL CONTINUE TO MONITOR PER PLAN OF CARE.
[2019-08-31 06:41] LABS: HEMATOCRIT 24.6 % (37.0-47.0); HEMOGLOBIN 7.7 gm/dL (12.0-15.0); MCH 24.6 pg (26.0-34.0); MCHC 31.2 g/dL (28.0-37.0); RBC 3.11 mil/uL (4.20-5.00); RDW 18.4 % (10.5-14.5); WBC 6.3 thou/uL (4.0-11.0)
[2019-08-31 06:54] LABS: CALCIUM 7.4 mg/dL (8.5-10.1); CREATININE 0.8 mg/dL (0.6-1.0)
[2019-08-31 06:57] LABS: POTASSIUM 2.6 mmol/L (3.5-5.1)
[2019-08-31 07:29] VITALS: BP 96/38
[2019-08-31 15:27] VITALS: BP 106/76; BP 88/51; BP 88/52; BP 92/48; BP 98/60
[2019-08-31 17:14] VITALS: BP 85/44
[2019-08-31 20:09] VITALS: BP 88/52
[2019-08-31 21:41] LABS: HEMATOCRIT 27.1 % (37.0-47.0); HEMOGLOBIN 8.5 gm/dL (12.0-15.0)
[2019-09-01 01:03] VITALS: BP 86/53; BP 88/51
[2019-09-01 04:37] LABS: CALCIUM 7.3 mg/dL (8.5-10.1); CREATININE 0.9 mg/dL (0.6-1.0)
[2019-09-01 04:40] LABS: POTASSIUM 2.9 mmol/L (3.5-5.1)
[2019-09-01 05:35] LABS: HEMATOCRIT 29.7 % (37.0-47.0); HEMOGLOBIN 9.3 gm/dL (12.0-15.0); MCH 25.3 pg (26.0-34.0); MCHC 31.3 g/dL (28.0-37.0); MCV 80.7 fL (80.0-100.0); RBC 3.68 mil/uL (4.20-5.00); RDW 17.5 % (10.5-14.5); WBC 8.2 thou/uL (4.0-11.0)
--- NOTE | 2019-09-01 08:17 | NUR ---
ASSUMED CARE OF PATIENT AT 1900. ASSESSMENT COMPLETED. TELE STRIPS PRINTED AND PLACED IN CHART. AMIODARONE DRIP RUNNING. PATIENT DENIES ANY CHEST PAIN. PATIENT IN SINUS RHYTHM. PATIENT TO CONTINUE WITH POC.
[2019-09-01 08:42] VITALS: BP 91/47
--- NOTE | 2019-09-01 16:49 | NUR ---
PT is A&OX3, PT is continuing iv abx , pain management and wound care, pt's VS are stable, pt has po kcl replacenent for low potassium , pt denies N/V an sob at this time.
[2019-09-01 17:27] VITALS: BP 103/66
[2019-09-01 20:31] VITALS: BP 84/52
[2019-09-02 00:06] VITALS: BP 91/46
[2019-09-02 03:18] VITALS: BP 95/51
[2019-09-02 04:57] LABS: HEMATOCRIT 29.5 % (37.0-47.0); HEMOGLOBIN 9.2 gm/dL (12.0-15.0); MCH 25.3 pg (26.0-34.0); MCHC 31.3 g/dL (28.0-37.0); MCV 80.7 fL (80.0-100.0); RBC 3.65 mil/uL (4.20-5.00); RDW 17.8 % (10.5-14.5); WBC 6.8 thou/uL (4.0-11.0)
--- NOTE | 2019-09-02 05:06 | NUR ---
ASSUMED PT CARE AROUND 1900 PT RESTING IN BED. PT HAD NO C/O N/V/D. PT C/O PAIN TO BILATERAL LOWER EXTREMITIES. PT ABLE TO USE BEDPAN. PT HAS CONCERN ABOUT WHETHER PEG TUBE WILL BE PULLED TODAY 09/02 PRIOR TO BEING DISCHARGED. PT ALSO STATED SHE WANTED TO CHANGE THE FACILITY TO WHICH SHE WILL BE DISCHARGED...ADVISED PT THAT SHE WOULD NEED TO SPEAK WITH CASE MGT. WILL CONTINUE TO MONITOR PT PER PLAN OF CARE.
[2019-09-02 05:52] LABS: CALCIUM 7.6 mg/dL (8.5-10.1); CREATININE 0.9 mg/dL (0.6-1.0); POTASSIUM 3.4 mmol/L (3.5-5.1)
[2019-09-02 08:07] VITALS: BP 97/74
--- NOTE | 2019-09-02 09:44 | NUR ---
REPORT RECEIVED FROM JAY GOEL, [facility] CARE AT 0700, PT ASLEEP IN BED, ASSESSED AT 0730, VSS, DISCUSSED POC WITH PT, SHE VERBALIZED UNDERSTANDING OF NEED TO BE NPO, GAVE AM MED WITH SIPS OF WATER, DOUGHNUT DOUGH MIXER IN TO CHILD CARE AIDE PT FOR UPPER AND LOWER AT 0940.
--- NOTE | 2019-09-02 09:47 | NUR ---
REPORT RECEIVED FROM ROBERTA RN, PT ASLEEP IN BED, ASSESSED AT 0815, VSS, PT VERY CONCERNED ABOUT WHERE SHE WILL GO. DOESN'T WANT TO GO TO [facility]. I SPOKE WITH BILL OWEN, SHE WILL SPEAK WITH PT ABOUT GOING TO [place]. WAITING TO HEAR FROM GI ABOUT DOING ENDOSCOPY OR COLONOSCOPY, PT ALSO WANTS PEG TUBE OUT. WILL MONITOR.
--- NOTE | 2019-09-02 14:57 | NUR ---
WOUND CARE F/U; THE LE WOUNDS LOOK GOOD I HAVE SEEN THIS ADMISSION. THE PATIENT HAS LESS PAIN WELL. NO S/S OF AN ACUTE INFECTION AT THIS TIME. RECOMMEDNATION; D/C IS LIKELY TODAY TO [facility]. DISCUSSED WITH JAY
[2019-09-02 16:10] VITALS: BP 101/58
--- NOTE | 2019-09-02 17:02 | NUR ---
spoke with patient who was considering [facility]. Both [facility] and [facility] li[facility] came and visited with patient regarding faclities. Patient chose [facility] after speaking with liason and PLASTIC EXTRUSION OPERATOR. Patient to have colonoscopy in am. Patient tenative dc in am post colonscopy, pending bed avail.
[2019-09-02 21:15] VITALS: BP 94/48
--- NOTE | 2019-09-03 04:18 | NUR ---
ASSUMED PT CARE AT 1900,PT IS ALERT AND ORIENTEDX4, PT IS AFIB ON THE MONITOR, NO COMPLAINS OF CHEST PAIN OR SOB, COMPLAINED OF PAIN ON HER LOWER EXTREMITIES, PAIN MEDICATION GIVEN WITH PARTIAL RELIEF, PT ON BOWEL PREP FOR PROCEDURE IN THE AM, ASSESSMENTS CHARTED, STABLE AT THIS TIME, WILL CONTINUE TO MONITOR
[2019-09-03 06:04] VITALS: BP 102/52
[2019-09-03 07:30] VITALS: BP 84/48
[2019-09-03] MEDS ORDERED: MEROPENEM-500 MG/50 IVPB (10:36)
[2019-09-03] MEDS ORDERED: CLOTRIMAZOLE10 MG PO (10:36)
[2019-09-03] MEDS ORDERED: IRON325 PO (10:36)
[2019-09-03] MEDS ORDERED: B-12500 MCG PO (10:36)
[2019-09-03] MEDS ORDERED: CALTRATE-600 W1 EACH PO (10:36)
[2019-09-03] MEDS ORDERED: METOPROLOL SUCC25 M1 PO (10:36)
--- NOTE | 2019-09-03 13:38 | NUR ---
PT HAD MULTIPLE BOWEL MOVEMENTS THIS MORNING R/T BOWEL PREP. EGD & COLONOSCOPY COMPLETE. PATIENT ON 2LNC POST PROCEDURE. O2 SATS 94%, AFEBRILE. PATIENT MOVES SELF WELL IN BED, CALLS FOR ASSIST APPROPRIATELY, FALL PRECAUTIONS IN PLACE. RESUMED REGULAR DIET POST PROCEDURE, WILL MONITOR FOR N/V.
[2019-09-03 13:59] VITALS: BP 86/54
[2019-09-03 14:00] VITALS: BP 86/54
--- NOTE | 2019-09-03 15:10 | NUR ---
PT DISCHARGING TODAY TO [facility] FAXED DC ORDERS/SUMMARY TO FACILITY SPOKE WITH RJ IN ADM HE RECEIVED ORDERS. ARRANGED TRANSPORT WITH [employer] TR[facility] #[id number] FOR [phone] TODAY. NOTIFIED PT'S STEVE DURAN OF DC AND TIME OF TRANSPORT. UNIT NOTIFIED AND CHART COPY PER US. RN TO CALL REPORT TO [phone].
--- NOTE | 2019-09-03 15:36 | NUR ---
met with patient and DPOA at bedside. Plan dc to [facility] today. Rec copy of DPOA paperwork. Made copy and placed in chart copy and medical record. No further needs.
--- NOTE | 2019-09-05 16:07 | PATH ---
[facility] [address] [address] PATHOLOGY RPT PROCEDURE Name: MARIE GILMAN Room #: 206-P [facility] IN M.R.#: [id number] Admission: 08/13/19 Date of : 57 Discharge: 09/03/19 Report #: [id number] Path Case #: [id number] [facility] Accession Number: [id number] . 01 Material submitted: . PART A: duodenum - BX OF DUODENUM PART B: colon - BX OF ASCENDING COLON POLYP. Modifiers: ascending PART C: colon - BX OF TRANSVERSE COLON POLYP. Modifiers: transverse . 01 Clinical history: . . History of anemia A. Rule out sprue . 02 Diagnosis: A. 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 - Mild villous blunting identified. (Please see comment) - No increase in intraepithelial lymphocytes. . B. Polyp, ascending colon polyp, endoscopic biopsy: - Inflammatory polyp. - Negative for dysplasia. . C. Polyp, transverse colon polyp, endoscopic biopsy: - Inflammatory polyp associated with hyperplastic changes. - Negative for dysplasia. LBQ 09/05/2019 1416 Local . 02 Comment: A. Minimal to mild villous blunting is identified within the duodenum mucosal biopsy tissue. This is likely due to the peptic duodenitis. Correlate clinically and follow-up as indicated. . Part B and C: Examination shows active cryptitis and scattered foci along with a crypt abscess within the polypoid mucosal tissue. Findings are consistent with an inflammatory polyp. There is no dysplasia present. (IUV/db; 09/05/2019) . 02 Electronically signed: . Seda Rendon MD, Pathologist NPI- [id number] . 01 Gross description: . A. The specimen is received in formalin, labeled "Marie Gilman, BX of duodenum" and consists of a fragment of pink-vanegas tissue measuring 0.5 [place] [address] PATHOLOGY RPT PROCEDURE Name: MARIE GILMAN A Room #: 206-P [facility] IN ..#: [id number] Admission: 08/13/19 Date of : 57 Discharge: 09/03/19 Report #: [id number] Path Case #: [id number] 0.3 cm which is entirely submitted in A1. . B. The specimen is received in formalin, labeled "Brown, Marie, BX of ascending colon polyp" and consists of a fragment of pink-vanegas tissue measuring 0.4 x 0.3 cm which is entirely submitted in B1. . C. The specimen is received in formalin, labeled "Brown, Marie, BX of transverse colon polyp" and consists of 4 fragments of vanegas-brown tissue measuring between 0.2 x 0.2 cm and 0.3 x 0.2 cm which are entirely submitted in C1. (SDY; 09/04/2019) SYU/SYU 09/04/2019 1447 Local . 02 Pathologist provided ICD-10: K29.80, K63.5 . 02 CPT . 743323, 254604, 827830 Specimen Comment: A courtesy copy of this report has been sent to [phone], [phone] Specimen Comment: [phone], Specimen Comment: Report sent to ,DR CAREY / DR BRAY Performed at: [address], [place] [id number] MD Wilbert Kulkarni MD Phone: [phone] Performed at: [address] [id number] MD Seda Rendon MD Phone: [phone]
== END 2019-09-03 19:00 | DRG 853 ==
LOC: 2N 14:00 → 4W 16:11 → 2N 08-26 16:40 → 3W 08-26 16:45 → 2N 08-26 18:24
PROVIDERS: Hospitalist; Internal Medicine; Internal Medicine Gastroenterology; Nurse Practitioner; Nurse Practitioner Adult Health; ADMIT Hospitalist
PROC: 30233N1 Transfusion of Nonautologous Red Blood Cells into Peripheral Vein, Percutaneous Approach (ICD-10-PCS; principal; 2019-08-25)
PROC: B5191ZZ Fluoroscopy of Inferior Vena Cava using Low Osmolar Contrast (ICD-10-PCS; 2019-08-27)
PROC: B51D1ZZ Fluoroscopy of Bilateral Lower Extremity Veins using Low Osmolar Contrast (ICD-10-PCS; 2019-08-27)
PROC: 0DJD8ZZ Inspection of Lower Intestinal Tract, Via Natural or Artificial Opening Endoscopic (ICD-10-PCS; 2019-09-03)
PROC: 0W3P8ZZ Control Bleeding in Gastrointestinal Tract, Via Natural or Artificial Opening Endoscopic (ICD-10-PCS; 2019-09-03)
PROC: 0KBW0ZZ Excision of Left Foot Muscle, Open Approach (ICD-10-PCS; 2019-09-03)
PROC: 0KBS0ZZ Excision of Right Lower Leg Muscle, Open Approach (ICD-10-PCS; 2019-09-03)
PROC: 0KBT0ZZ Excision of Left Lower Leg Muscle, Open Approach (ICD-10-PCS; 2019-09-03)
PROC: 0KBV0ZZ Excision of Right Foot Muscle, Open Approach (ICD-10-PCS; 2019-09-03)
DX: A41.9 Sepsis, unspecified organism (principal); E43 Unspecified severe protein-calorie malnutrition; J96.01 Acute respiratory failure with hypoxia; J18.9 Pneumonia, unspecified organism; I87.313 Chronic venous hypertension (idiopathic) with ulcer of bilateral lower extremity; L97.829 Non-pressure chronic ulcer of other part of left lower leg with unspecified severity; L97.819 Non-pressure chronic ulcer of other part of right lower leg with unspecified severity; L03.116 Cellulitis of left lower limb; L03.115 Cellulitis of right lower limb; N17.9 Acute kidney failure, unspecified; I50.30 Unspecified diastolic (congestive) heart failure; E87.1 Hypo-osmolality and hyponatremia; E89.0 Postprocedural hypothyroidism; I87.2 Venous insufficiency (chronic) (peripheral); E11.42 Type 2 diabetes mellitus with diabetic polyneuropathy; D50.9 Iron deficiency anemia, unspecified; K21.9 Gastro-esophageal reflux disease without esophagitis; R13.10 Dysphagia, unspecified; K44.9 Diaphragmatic hernia without obstruction or gangrene; K59.00 Constipation, unspecified; K63.5 Polyp of colon; K57.90 Diverticulosis of intestine, part unspecified, without perforation or abscess without bleeding; K31.819 Angiodysplasia of stomach and duodenum without bleeding; K22.8 Other specified diseases of esophagus; D53.9 Nutritional anemia, unspecified; E87.5 Hyperkalemia; G89.4 Chronic pain syndrome; D47.3 Essential (hemorrhagic) thrombocythemia; D89.9 Disorder involving the immune mechanism, unspecified; D63.8 Anemia in other chronic diseases classified elsewhere; I95.9 Hypotension, unspecified; I87.309 Chronic venous hypertension (idiopathic) without complications of unspecified lower extremity; E87.6 Hypokalemia; E78.00 Pure hypercholesterolemia, unspecified; I11.0 Hypertensive heart disease with heart failure; I48.91 Unspecified atrial fibrillation; Z88.1 Allergy status to other antibiotic agents; Z90.81 Acquired absence of spleen; Z90.49 Acquired absence of other specified parts of digestive tract; Z88.2 Allergy status to sulfonamides; Z88.8 Allergy status to other drugs, medicaments and biological substances; Z79.01 Long term (current) use of anticoagulants; Z68.32 Body mass index [BMI] 32.0-32.9, adult; Z80.0 Family history of malignant neoplasm of digestive organs; Z79.891 Long term (current) use of opiate analgesic; Z79.899 Other long term (current) drug therapy
CPT/HCPCS: 10047; 10081; 10797; 27000; 50010; 50101; 50386; 57119; 57120; 62110; 62900; 70005

== ENCOUNTER → 2019-10-08 | Outpatient (CLI) | payer OTHER ==
[~2019-10-08] MED LIST changes: +B-12500 MCG PO; +CALTRATE-600 W1 EACH PO; +CLOTRIMAZOLE10 MG PO; +IRON325 PO; +MEROPENEM-500 MG/50 IVPB; +METOPROLOL SUCC25 M1 PO
== END ==
LOC: HYPER 11:19
DX: E11.622 Type 2 diabetes mellitus with other skin ulcer (principal); I87.333 Chronic venous hypertension (idiopathic) with ulcer and inflammation of bilateral lower extremity; L97.822 Non-pressure chronic ulcer of other part of left lower leg with fat layer exposed; L97.812 Non-pressure chronic ulcer of other part of right lower leg with fat layer exposed; L97.312 Non-pressure chronic ulcer of right ankle with fat layer exposed; E11.621 Type 2 diabetes mellitus with foot ulcer; L97.522 Non-pressure chronic ulcer of other part of left foot with fat layer exposed; L97.512 Non-pressure chronic ulcer of other part of right foot with fat layer exposed; E11.40 Type 2 diabetes mellitus with diabetic neuropathy, unspecified; E11.51 Type 2 diabetes mellitus with diabetic peripheral angiopathy without gangrene; E11.39 Type 2 diabetes mellitus with other diabetic ophthalmic complication; H40.9 Unspecified glaucoma; E05.00 Thyrotoxicosis with diffuse goiter without thyrotoxic crisis or storm; E66.9 Obesity, unspecified; E05.90 Thyrotoxicosis, unspecified without thyrotoxic crisis or storm; G47.30 Sleep apnea, unspecified; I25.10 Atherosclerotic heart disease of native coronary artery without angina pectoris; I10 Essential (primary) hypertension; J44.9 Chronic obstructive pulmonary disease, unspecified; K21.9 Gastro-esophageal reflux disease without esophagitis; K90.0 Celiac disease; M19.90 Unspecified osteoarthritis, unspecified site; M32.10 Systemic lupus erythematosus, organ or system involvement unspecified; M79.7 Fibromyalgia; F32.9 Major depressive disorder, single episode, unspecified; F41.9 Anxiety disorder, unspecified; Z86.718 Personal history of other venous thrombosis and embolism; Z87.891 Personal history of nicotine dependence; Z90.49 Acquired absence of other specified parts of digestive tract; Z79.82 Long term (current) use of aspirin

== ENCOUNTER → 2019-10-18 | Outpatient (CLI) | payer OTHER | LOC: SJCVCIMAG 10-15 13:30 | DX: I08.1 Rheumatic disorders of both mitral and tricuspid valves (principal); R94.31 Abnormal electrocardiogram [ECG] [EKG]; I27.20 Pulmonary hypertension, unspecified; I11.0 Hypertensive heart disease with heart failure; I50.32 Chronic diastolic (congestive) heart failure; I70.201 Unspecified atherosclerosis of native arteries of extremities, right leg; I48.20 Chronic atrial fibrillation, unspecified; I83.019 Varicose veins of right lower extremity with ulcer of unspecified site; I83.029 Varicose veins of left lower extremity with ulcer of unspecified site; L97.919 Non-pressure chronic ulcer of unspecified part of right lower leg with unspecified severity; L97.929 Non-pressure chronic ulcer of unspecified part of left lower leg with unspecified severity; J44.9 Chronic obstructive pulmonary disease, unspecified; G47.33 Obstructive sleep apnea (adult) (pediatric); Z90.49 Acquired absence of other specified parts of digestive tract; Z79.899 Other long term (current) drug therapy; Z87.891 Personal history of nicotine dependence ==

== ENCOUNTER → 2019-10-22 | Outpatient (CLI) | payer OTHER | LOC: HYPER 13:44 | DX: E11.622 Type 2 diabetes mellitus with other skin ulcer (principal); I87.333 Chronic venous hypertension (idiopathic) with ulcer and inflammation of bilateral lower extremity; L97.822 Non-pressure chronic ulcer of other part of left lower leg with fat layer exposed; L97.812 Non-pressure chronic ulcer of other part of right lower leg with fat layer exposed; L97.321 Non-pressure chronic ulcer of left ankle limited to breakdown of skin; L97.312 Non-pressure chronic ulcer of right ankle with fat layer exposed; E11.621 Type 2 diabetes mellitus with foot ulcer; L97.522 Non-pressure chronic ulcer of other part of left foot with fat layer exposed; L97.512 Non-pressure chronic ulcer of other part of right foot with fat layer exposed; E11.39 Type 2 diabetes mellitus with other diabetic ophthalmic complication; H40.9 Unspecified glaucoma; E11.51 Type 2 diabetes mellitus with diabetic peripheral angiopathy without gangrene; E11.40 Type 2 diabetes mellitus with diabetic neuropathy, unspecified; E05.00 Thyrotoxicosis with diffuse goiter without thyrotoxic crisis or storm; E05.90 Thyrotoxicosis, unspecified without thyrotoxic crisis or storm; E66.9 Obesity, unspecified; G47.30 Sleep apnea, unspecified; I25.10 Atherosclerotic heart disease of native coronary artery without angina pectoris; I10 Essential (primary) hypertension; J44.9 Chronic obstructive pulmonary disease, unspecified; K90.0 Celiac disease; K21.9 Gastro-esophageal reflux disease without esophagitis; M32.10 Systemic lupus erythematosus, organ or system involvement unspecified; M79.7 Fibromyalgia; M19.90 Unspecified osteoarthritis, unspecified site; F41.9 Anxiety disorder, unspecified; F32.9 Major depressive disorder, single episode, unspecified; Z86.718 Personal history of other venous thrombosis and embolism; Z87.891 Personal history of nicotine dependence ==

== ENCOUNTER → 2019-10-22 | Outpatient (CLI) | payer OTHER | LOC: SJCVCIMAG 10:39 | DX: I25.10 Atherosclerotic heart disease of native coronary artery without angina pectoris (principal); I48.20 Chronic atrial fibrillation, unspecified; I11.0 Hypertensive heart disease with heart failure; I50.9 Heart failure, unspecified; J44.9 Chronic obstructive pulmonary disease, unspecified; Z79.899 Other long term (current) drug therapy ==

== ENCOUNTER 2019-11-05 09:50 | Inpatient (IN) | payer OTHER ==
[2019-11-05] VITALS (14 sets, daily range): BP systolic 92–136; BP diastolic 45–70
[~2019-11-05] VITALS: Ht 172.7 cm; Wt 87.5 kg
--- NOTE | ~2019-11-05 | H ---
[facility] [address] [place] [address] HISTORY AND PHYSICAL Name: JORGITO MANNING Room #: REG [facility] aSndy#: [id number] Admission: 11/05/19 Attend Phys: Curtis Thompson MD, Discharge: Date of : 57 Report #: [id number] THIS REPORT FOR: cc: Bryon Parra James L. DO ~ CC: Curtis Parra DATE OF SERVICE: 11/05/2019 HISTORY OF PRESENT ILLNESS: The patient is a 64-year-old female who was admitted for right and left heart catheterization, progressive dyspnea, shortness of breath and had some nonhealing leg wounds due to predominantly peripheral edema. These have improved and followed by wound care, Dr. Montes. Multiple risk factors for coronary artery disease, but nothing documented. Nuclear stress testing suggested anterior wall ischemia. An echo suggested moderate pulmonary hypertension. Admitted for right and left heart catheterization. Found to have significant elevated pulmonary pressures 55/25 and a wedge pressure of 22-24 mean. Volume overloaded. Coronary artery disease was mild. LV function was preserved. 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 We will admit overnight to the CCU for observation and diuresis. 40 mg of IV Lasix has been given. No intervention indicated. The abdominal aorta was intact as was the iliac system and renal arteries. This was looked at by Dr. Sanon. There was a lower arterial Doppler study previously done, which revealed occlusion of the right FILM CUTTER but otherwise no flow limiting stenosis. CURRENT MEDICATIONS: Albuterol, Flexeril, Benadryl, Colace, Flonase, Lasix, Neurontin, [place], Combivent, omeprazole, oxycodone, Mirapex, Zanaflex, Xarelto 20. PAST MEDICAL HISTORY: Positive for permanent atrial fibrillation, hypertension, diastolic dysfunction, venous stasis ulcers, PVD, COPD, DJD, prior tobacco. No alcohol or illicit drugs. SOCIAL HISTORY: She lives alone. She is relatively independent, although has to public transportation to get around FAMILY HISTORY: Father had premature coronary artery disease. REVIEW OF SYSTEMS: Negative except for the chronic pain, obvious narcotic usage and COPD, dyspnea and anticoagulated chronically for the AFib. PHYSICAL EXAMINATION: GENERAL: She is mildly dyspneic. Pulses 80s and irregularly irregular. Blood [facility] [address] [place] [address] HISTORY AND PHYSICAL Name: JORGITO MANNING Room #: REG [facility]#: [id number] Admission: 11/05/19 Attend Phys: Curtis Thompson MD, Discharge: Date of : 57 Report #: [id number] pressure 100/56. HEENT: Eyes reveal xanthelasmas. Pharynx is clear. NECK: Shows a trace of JVD, without JVD or bruits. LUNGS: Clear with a few basilar crackles. CARDIOVASCULAR: Irregularly irregular S1, S2, holosystolic murmur. ABDOMEN: Obese, nontender. EXTREMITIES: Wrapped due to venous stasis ulcers. I cannot palpate distal pulses. NEUROLOGIC: Intact. MUSCULOSKELETAL: Generalized arthritic changes with valgus deformity of the knees. ASSESSMENT: 1. Acute on chronic diastolic heart failure with significant elevation of pulmonary capillary wedge pressure as stated above. 2. Mild coronary artery disease from catheterization above. 3. Permanent atrial fibrillation. 4. Chronic obstructive pulmonary disease. 5. Chronic pain and narcotic usage. 6. Degenerative joint disease. 7. Chronic venous stasis ulcers. 8. Hypertension. 9. Hypercholesterolemia. RECOMMENDATIONS AND PLAN: We will admit for aggressive diuresis here overnight. We will revisit the fluid and sodium restriction. We will have wound care reevaluate these legs. In addition, the lower extremity superficial ulcers. Thank you for asking me to assist in the care of this patient. By: 1349 1359 /nt
[2019-11-05] MEDS ORDERED: FLEXERIL PO (11:02)
[2019-11-05] MEDS ORDERED: FUROSEMIDE 40 M40 MG PO (11:03)
[2019-11-05] MEDS ORDERED: TAPAZOLE10 MG PO (11:05)
[2019-11-05] MEDS ORDERED: XARELTO20 MG PO (11:05)
[2019-11-05] MEDS ORDERED: PERCOCET 10-321 EAC1 PO (11:06)
--- NOTE | 2019-11-05 14:08 | EKG ---
[facility] [address] [place] [address] ELECTROCARDIOGRAM REPORT Name: JORGITO MANNING Room #: [facility]#: [id number] Admission: 11/05/19 Attend Phys: Curtis Thompson MD, Discharge: Date of : 57 Report #: [id number] THIS REPORT FOR: cc: Bryon Parra James L. DO Couchonnal, Luis F. MD ~ THIS REPORT FOR: //name// [facility] Test Date: 2019-11-05 Test Time: 10:21:08 Pat Name: JORGITO MANNING Department: Room: Gender: Specialist Physicians: NORMA : 1955 Requested By: Curtis Thompson Order Number: [id number] MD: Tahir Becerra Measurements Intervals [place] Rate: 77 P: RI: QRS: -18 QRSD: 93 T: 38 QT: 410 QTc: 465 Interpretive Statements Atrial fibrillation Borderline left axis deviation Low voltage, extremity and precordial leads Compared to ECG 08/27/2019 13:28:33 No significant changes Electronically Signed On 11-05-2019 14:07:10 CDT by Tahir Becerra [email or web address] <ELECTRONICALLY SIGNED> By: Tahir Becerra MD 11/05/19 1407 1021 1021 Tahir Becerra MD /EPI
--- NOTE | 2019-11-05 16:06 | CATHLAB ---
[facility] [address] [place] [address] INVASIVE PROCEDURE REPORT Name: JORGITO MANNING Room #: 205-P ADM IN M.R.#: [id number] Admission: 11/05/19 Attend Phys: Curtis Thompson MD, Discharge: Date of : 57 Report #: [id number] THIS REPORT FOR: cc: Bryon Parra James L. DO Mancuso, Gerald M. MD [facility] ~ APPROVED REPORT Study performed: 11/05/2019 13:12:04 Patient Details The patient is a 64 year-old female Event Personnel Curtis Thompson Sas Programmer Remote, Priya Kirkpatrick RTR, Raphael Martinez Sherra RTR Monitor, Dena Clark RN freelance writer Performed Right and Left Heart Cath w/or w/o Coronarie [id number] [facility] [id number] Initial Mod Sed Same Phys/QHP Gr5y 164974 Hemostasis w/ Mynx Indication Chest pain Procedure Narrative The was infiltrated with 1% Lidocaine subcutaneous anesthesia. A Right Heart Catheterization was performed with a 7 Fr. [place]-Arm[place] catheter and pressure were recorded. Cardiac outputs were obtained by the Thermal Dilution method. A PINNACLE 6FR Sheath #[id number] sheath was inserted into the RFA^. Coronary angiography was performed using coronary diagnostic catheters. The right coronary system was accessed and visualized with a JR4 catheter. The left coronary system was accessed and visualized with a JL4 catheter. The left ventricle was accessed and visualized with a PIGTAIL catheter. Left ventriculogram was performed in 30 degree projection. Closure device was deployed with a 6 Fr MYNXGRIP 6/7F [id number]. The patient tolerated the procedure well and there were no complications associated with the procedure. There was no hematoma. SEDATION TOTALS, CONTRAST TOTALS, AND FLUORO TIMES ARE FROM A COMBO CASE WITH JOSE DANIEL Intraoperative Conscious Sedation Sedation start time: 1308 Case end Time: [facility] [address] [place] [address] INVASIVE PROCEDURE REPORT Name: JORGITO MANNING Room #: 205-P [facility] IN [facility]#: [id number] Admission: 11/05/19 Attend Phys: Curtis Thompson, Discharge: Date of : 57 Report #: [id number] Fentanyl 100 mcg Versed 2 mg Fluoro Time: 3.76 minutes Dose: DAP 54783.60 cGycm2 652 mGy Contrast Type and Amount: Omnipaque 144 ml Hemodynamics The right atrial mean pressure is 15 mmHg. The right ventricular pressure is 48/2 mmHg. The pulmonary artery pressure is 52/20 mmHg with a mean of 35 mmHg. The mean pulmonary capillary wedge pressure is 29 mmHg. The aortic pressure is 124/50 mmHg with a mean of 82 mmHg. The left ventricular pressure is 128/10 mmHg with a mean of mmHg. The left ventricular end diastolic pressure is 20 mmHg. The cardiac output using thermo method is 6.15 L/min. The cardiac index using thermo method is 3.10 L/min/m2. Conclusion #1. Successful right heart catheterization with hemodynamics noted above. Cardiac output by thermodilution. #2 normal left ventricular size and systolic function lower limits of normal EF 50 to 55% #3 left main moderate size free of disease giving rise to LAD and circumflex #4 LAD with mild irregularities extends to the apex no occlusive disease #5 circumflex OM nondominant with a mid circumflex lesion of 40% #6 dominant right with an eccentric 50 to 60% proximal lesion mild calcification proximal and mid vessel giving rise to PDA NARGIS mildly diseased anatomically dominant system. Recommendations and plan: Patient is significantly volume overloaded with a PA pressure 55/25 wedge pressure mean of 25 mmHg. Moderately symptomatic. IV Lasix given will admit overnight for observation and diuresis. <ELECTRONICALLY SIGNED> By: Curtis Thompson MD, FACC 11/05/19 1604 1604 1604 Curtis Thompson MD, FACC /INF
--- NOTE | 2019-11-05 17:11 | NUR ---
ARRIVED FROM CATHLAB AT 1510, ALERT AND ORIENTED. POST CARDIAC CATH ASSESSMENT DOCUMENTED, AND STABLE. RT GRION SITE INTACT AND SOFT. POC INITIATED AND WILL CONTINUE TO MOINTOR.
--- NOTE | 2019-11-05 23:03 | NUR ---
Pt resting quietly after oxycodone given for le pain to wound sites. Right groin dressing is clean and dry. No hematoma. VSS. Afebrile.
[2019-11-06 00:19] VITALS: BP 97/54
[2019-11-06 00:20] VITALS: BP 97/54
[2019-11-06 03:57] VITALS: BP 96/43
[2019-11-06 04:00] VITALS: BP 96/43
--- NOTE | 2019-11-06 04:19 | NUR ---
Pt progressing slowly towards d/c goals. Bp moderately low in 90's this am. c/o pain to le's which stated is not new and pain to right groin from insertion site. No hematoma noted. 1+ femoral pulses noted. Dressings to le's intact. Unable to assess dorsalis pedal pulses. 1+ femoral pulses noted and popliteal faint. Toes and legs are warm and dry. Pt stated she has neuopathy which is not new. Medicated for pain with oxycodone x2 so far. No s/s bleeding. will continue to monitor pt for changes.
[2019-11-06 06:18] LABS: ANION GAP 8 mmol/L (7-16); BUN 11 mg/dL (7-18); CALCIUM 8.2 mg/dL (8.5-10.1); CHLORIDE 100 mmol/L (98-107); CO2 29 mmol/L (21-32); CREATININE 1.2 mg/dL (0.6-1.0); GLUCOSE 66 mg/dL (74-106); POTASSIUM 3.4 mmol/L (3.5-5.1); SODIUM 137 mmol/L (136-145); TROPONIN-I <0.06 ng/mL (<0.06)
[2019-11-06 07:36] VITALS: BP 102/49
--- NOTE | 2019-11-06 08:06 | EKG ---
[facility] [address] [place] [address] ELECTROCARDIOGRAM REPORT Name: JORGITO MANNING Room #: 205 ADM IN M.R.#: [id number] Admission: 11/05/19 Attend Phys: Curtis Thompson MD, Discharge: Date of : 57 Report #: [id number] THIS REPORT FOR: cc: Bryon Parra,Bryon Norman,Luis Fernando Courtney MD [facility] ~ THIS REPORT FOR: //name// 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 : 1955 Requested By: Curtis Thompson Order Number: [id number] MD: Luis Fernando Rodriguez Measurements Intervals [place] Rate: 69 P: MN: QRS: -16 QRSD: 113 T: 43 QT: 413 QTc: 443 Interpretive Statements Atrial fibrillation Low voltage Nonspecific ST segment abnormality Compared to ECG 11/05/2019 10:21:08 No significant changes Electronically Signed On 11-06-2019 8:04:58 CDT by Luis Fernando Rodriguez [email or web address] <ELECTRONICALLY SIGNED> By: Luis Fernando Rodriguez MD, [facility] 11/06/19 0804 2 2 Luis Fernando Rodriguez MD, [facility] /EPI
--- NOTE | 2019-11-06 08:26 | NUR ---
Pt was given flexoril this am for pain since it was not time to give oxycodone again.Dressing remain intact.
[2019-11-06 09:45] VITALS: BP 102/49
--- NOTE | 2019-11-06 10:46 | NUR ---
WOUND CARE CONSULT; ROUNDING WITH DR LOUIS AND BORIS BSN. THE PATIENT IS WELL KNOWN TO US. THE WOUNDS TO THE LOWER LEGS BILATERALLY LOOK BETTER THAN I HAVE SEEN THEM. DRAMATICALLY LESS PAIN. THE WOUNDS HAVE A YELLOW TINGE WITH MODERATE DRAINAGE. THE PERIWOUND HAS BROWNISH TISSUE. NO ODOR. RECOMMENDATIONS; CONTINUE CURRENT ORDERS. XEROFROM,ABD, KERLIX AND LIGHTLY APPLIED CONNER WRAPS. RN PRESENT
--- NOTE | 2019-11-06 12:23 | NUR ---
11:20-PT. DISCHARGED AT THIS TIME. SHEPHERD REMOVED NO SIGN'S OF TRAUMA NOR BLEEDING UPON REMOVAL. NEURO, INTACT AND FAIRLY TALKATIVE WITH STAFF, VERY PLEASANT WOMAN. IV REMOVED WELL PER CEO AND FOUNDER AND BAND-AIDE. DENIES ANY CHEST PAIN. GROIN SITE APPEARS WITHIN NORMAL LIMITS, NO HEMATOMA, NO BLEEDING SIGN'S OF COMPLICATIONS. FEMORAL PULSES ARE 2+,STRONG BILATERALLY AND NO SIGN'S OF COMPROMISED BLOOD FLOW TO EXTREMETIES. DISCHARGE INSTRUCTIONS GIVEN WITH WOULD CARE DRESSING CHANGE ORDERS INCLUDED IN HER PACKET AND TOLD HER TO SHARE [place]UCH WITH HER HOME HEALTH TEAM MOVING FORWARD. NO NEW MEDICATIONS AT DISCHARGE WERE PRESCRIBED.
== END 2019-11-06 11:37 | disposition home health service (06) | DRG 286 ==
LOC: CATH 09:50 → 2N 15:27
PROVIDERS: ADMIT Internal Medicine Cardiovascular Disease
PROC: B2111ZZ Fluoroscopy of Multiple Coronary Arteries using Low Osmolar Contrast (ICD-10-PCS; principal; 2019-11-05)
PROC: 4A023N8 Measurement of Cardiac Sampling and Pressure, Bilateral, Percutaneous Approach (ICD-10-PCS; principal; 2019-11-05)
PROC: B2151ZZ Fluoroscopy of Left Heart using Low Osmolar Contrast (ICD-10-PCS; principal; 2019-11-05)
PROC: B4181ZZ Fluoroscopy of Bilateral Renal Arteries using Low Osmolar Contrast (ICD-10-PCS; 2019-11-05)
PROC: B41D1ZZ Fluoroscopy of Aorta and Bilateral Lower Extremity Arteries using Low Osmolar Contrast (ICD-10-PCS; 2019-11-05)
DX: I25.10 Atherosclerotic heart disease of native coronary artery without angina pectoris (principal); I50.33 Acute on chronic diastolic (congestive) heart failure; E43 Unspecified severe protein-calorie malnutrition; I48.21 Permanent atrial fibrillation; F11.20 Opioid dependence, uncomplicated; L97.829 Non-pressure chronic ulcer of other part of left lower leg with unspecified severity; L97.819 Non-pressure chronic ulcer of other part of right lower leg with unspecified severity; I73.9 Peripheral vascular disease, unspecified; E78.00 Pure hypercholesterolemia, unspecified; J44.9 Chronic obstructive pulmonary disease, unspecified; M19.90 Unspecified osteoarthritis, unspecified site; I11.0 Hypertensive heart disease with heart failure; Z60.2 Problems related to living alone; G89.29 Other chronic pain; I87.2 Venous insufficiency (chronic) (peripheral); Z82.49 Family history of ischemic heart disease and other diseases of the circulatory system; Z79.01 Long term (current) use of anticoagulants; Z79.899 Other long term (current) drug therapy; Z88.2 Allergy status to sulfonamides; Z88.8 Allergy status to other drugs, medicaments and biological substances; Z90.81 Acquired absence of spleen
CPT/HCPCS: 10081

== ENCOUNTER → 2019-11-19 | Outpatient (CLI) | payer OTHER ==
[~2019-11-19] MED LIST changes: +FUROSEMIDE 40 M40 MG PO; +PERCOCET 10-321 EAC1 PO; +XARELTO20 MG PO
== END ==
LOC: HYPER 10:22
DX: E11.622 Type 2 diabetes mellitus with other skin ulcer (principal); I87.333 Chronic venous hypertension (idiopathic) with ulcer and inflammation of bilateral lower extremity; L97.822 Non-pressure chronic ulcer of other part of left lower leg with fat layer exposed; L97.812 Non-pressure chronic ulcer of other part of right lower leg with fat layer exposed; L97.311 Non-pressure chronic ulcer of right ankle limited to breakdown of skin; L97.322 Non-pressure chronic ulcer of left ankle with fat layer exposed; E11.621 Type 2 diabetes mellitus with foot ulcer; L97.522 Non-pressure chronic ulcer of other part of left foot with fat layer exposed; L97.512 Non-pressure chronic ulcer of other part of right foot with fat layer exposed; E11.40 Type 2 diabetes mellitus with diabetic neuropathy, unspecified; E11.39 Type 2 diabetes mellitus with other diabetic ophthalmic complication; H40.9 Unspecified glaucoma; E11.51 Type 2 diabetes mellitus with diabetic peripheral angiopathy without gangrene; E05.00 Thyrotoxicosis with diffuse goiter without thyrotoxic crisis or storm; E66.9 Obesity, unspecified; E05.90 Thyrotoxicosis, unspecified without thyrotoxic crisis or storm; G47.30 Sleep apnea, unspecified; I25.10 Atherosclerotic heart disease of native coronary artery without angina pectoris; I10 Essential (primary) hypertension; J44.9 Chronic obstructive pulmonary disease, unspecified; K21.9 Gastro-esophageal reflux disease without esophagitis; K90.0 Celiac disease; M32.10 Systemic lupus erythematosus, organ or system involvement unspecified; M79.7 Fibromyalgia; M19.90 Unspecified osteoarthritis, unspecified site; F41.9 Anxiety disorder, unspecified; F32.9 Major depressive disorder, single episode, unspecified; Z87.891 Personal history of nicotine dependence; Z86.718 Personal history of other venous thrombosis and embolism

== ENCOUNTER → 2020-01-07 | Outpatient (CLI) | payer OTHER | LOC: HYPER 08:03 | PROVIDERS: ATTEND Emergency Medicine | DX: E11.622 Type 2 diabetes mellitus with other skin ulcer (principal); I87.333 Chronic venous hypertension (idiopathic) with ulcer and inflammation of bilateral lower extremity; L97.822 Non-pressure chronic ulcer of other part of left lower leg with fat layer exposed; L97.812 Non-pressure chronic ulcer of other part of right lower leg with fat layer exposed; L97.312 Non-pressure chronic ulcer of right ankle with fat layer exposed; L97.321 Non-pressure chronic ulcer of left ankle limited to breakdown of skin; E11.621 Type 2 diabetes mellitus with foot ulcer; L97.512 Non-pressure chronic ulcer of other part of right foot with fat layer exposed; L97.522 Non-pressure chronic ulcer of other part of left foot with fat layer exposed; L84 Corns and callosities; E11.40 Type 2 diabetes mellitus with diabetic neuropathy, unspecified; E11.51 Type 2 diabetes mellitus with diabetic peripheral angiopathy without gangrene; E11.39 Type 2 diabetes mellitus with other diabetic ophthalmic complication; H40.9 Unspecified glaucoma; E66.9 Obesity, unspecified; E05.00 Thyrotoxicosis with diffuse goiter without thyrotoxic crisis or storm; E05.90 Thyrotoxicosis, unspecified without thyrotoxic crisis or storm; I10 Essential (primary) hypertension; I25.10 Atherosclerotic heart disease of native coronary artery without angina pectoris; G47.30 Sleep apnea, unspecified; J44.9 Chronic obstructive pulmonary disease, unspecified; K90.0 Celiac disease; K21.9 Gastro-esophageal reflux disease without esophagitis; M32.10 Systemic lupus erythematosus, organ or system involvement unspecified; M79.7 Fibromyalgia; M19.90 Unspecified osteoarthritis, unspecified site; F32.9 Major depressive disorder, single episode, unspecified; F41.9 Anxiety disorder, unspecified; Z86.718 Personal history of other venous thrombosis and embolism; Z87.891 Personal history of nicotine dependence ==

== ENCOUNTER → 2020-01-17 | Outpatient (CLI) | payer OTHER | LOC: SJCVCIMAG 01-13 09:40 | PROVIDERS: ATTEND Internal Medicine Cardiovascular Disease | DX: I73.9 Peripheral vascular disease, unspecified (principal); R10.31 Right lower quadrant pain; R19.09 Other intra-abdominal and pelvic swelling, mass and lump; Z87.891 Personal history of nicotine dependence ==

== ENCOUNTER → 2020-02-04 | Outpatient (CLI) | payer OTHER | LOC: HYPER 11:56 | PROVIDERS: ATTEND Emergency Medicine | DX: I87.333 Chronic venous hypertension (idiopathic) with ulcer and inflammation of bilateral lower extremity (principal); E11.622 Type 2 diabetes mellitus with other skin ulcer; L97.822 Non-pressure chronic ulcer of other part of left lower leg with fat layer exposed; L97.812 Non-pressure chronic ulcer of other part of right lower leg with fat layer exposed; L97.321 Non-pressure chronic ulcer of left ankle limited to breakdown of skin; E11.621 Type 2 diabetes mellitus with foot ulcer; L97.522 Non-pressure chronic ulcer of other part of left foot with fat layer exposed; L97.512 Non-pressure chronic ulcer of other part of right foot with fat layer exposed; E11.40 Type 2 diabetes mellitus with diabetic neuropathy, unspecified; M32.10 Systemic lupus erythematosus, organ or system involvement unspecified; G47.30 Sleep apnea, unspecified; E11.51 Type 2 diabetes mellitus with diabetic peripheral angiopathy without gangrene; J44.9 Chronic obstructive pulmonary disease, unspecified; I25.10 Atherosclerotic heart disease of native coronary artery without angina pectoris; E05.00 Thyrotoxicosis with diffuse goiter without thyrotoxic crisis or storm; K90.0 Celiac disease; E05.90 Thyrotoxicosis, unspecified without thyrotoxic crisis or storm; K21.9 Gastro-esophageal reflux disease without esophagitis; M19.90 Unspecified osteoarthritis, unspecified site; E66.9 Obesity, unspecified; F32.9 Major depressive disorder, single episode, unspecified; F41.9 Anxiety disorder, unspecified; Z86.718 Personal history of other venous thrombosis and embolism; Z86.14 Personal history of Methicillin resistant Staphylococcus aureus infection; Z87.891 Personal history of nicotine dependence; Z79.01 Long term (current) use of anticoagulants ==

== ENCOUNTER → 2020-02-25 | Outpatient (CLI) | payer OTHER | LOC: HYPER 13:13 | PROVIDERS: ATTEND Emergency Medicine | DX: I87.333 Chronic venous hypertension (idiopathic) with ulcer and inflammation of bilateral lower extremity (principal); E11.621 Type 2 diabetes mellitus with foot ulcer; L97.512 Non-pressure chronic ulcer of other part of right foot with fat layer exposed; L97.522 Non-pressure chronic ulcer of other part of left foot with fat layer exposed; E11.622 Type 2 diabetes mellitus with other skin ulcer; L97.822 Non-pressure chronic ulcer of other part of left lower leg with fat layer exposed; L97.812 Non-pressure chronic ulcer of other part of right lower leg with fat layer exposed; L97.321 Non-pressure chronic ulcer of left ankle limited to breakdown of skin; L97.311 Non-pressure chronic ulcer of right ankle limited to breakdown of skin; E11.40 Type 2 diabetes mellitus with diabetic neuropathy, unspecified; E11.51 Type 2 diabetes mellitus with diabetic peripheral angiopathy without gangrene; I89.0 Lymphedema, not elsewhere classified; M32.10 Systemic lupus erythematosus, organ or system involvement unspecified; M79.7 Fibromyalgia; I25.10 Atherosclerotic heart disease of native coronary artery without angina pectoris; E05.00 Thyrotoxicosis with diffuse goiter without thyrotoxic crisis or storm; K90.0 Celiac disease; E05.90 Thyrotoxicosis, unspecified without thyrotoxic crisis or storm; K21.9 Gastro-esophageal reflux disease without esophagitis; M19.90 Unspecified osteoarthritis, unspecified site; E11.39 Type 2 diabetes mellitus with other diabetic ophthalmic complication; J44.9 Chronic obstructive pulmonary disease, unspecified; H42 Glaucoma in diseases classified elsewhere; G47.30 Sleep apnea, unspecified; E66.9 Obesity, unspecified; F41.9 Anxiety disorder, unspecified; F32.9 Major depressive disorder, single episode, unspecified; Z86.73 Personal history of transient ischemic attack (TIA), and cerebral infarction without residual deficits; Z86.14 Personal history of Methicillin resistant Staphylococcus aureus infection; Z87.891 Personal history of nicotine dependence; Z79.01 Long term (current) use of anticoagulants; Z79.82 Long term (current) use of aspirin ==

== ENCOUNTER → 2020-03-24 | Outpatient (CLI) | payer OTHER | LOC: HYPER 13:10 | PROVIDERS: ATTEND Emergency Medicine | DX: I87.333 Chronic venous hypertension (idiopathic) with ulcer and inflammation of bilateral lower extremity (principal); E11.622 Type 2 diabetes mellitus with other skin ulcer; L97.822 Non-pressure chronic ulcer of other part of left lower leg with fat layer exposed; L97.322 Non-pressure chronic ulcer of left ankle with fat layer exposed; L97.312 Non-pressure chronic ulcer of right ankle with fat layer exposed; L97.812 Non-pressure chronic ulcer of other part of right lower leg with fat layer exposed; E11.621 Type 2 diabetes mellitus with foot ulcer; L97.522 Non-pressure chronic ulcer of other part of left foot with fat layer exposed; L97.512 Non-pressure chronic ulcer of other part of right foot with fat layer exposed; I87.2 Venous insufficiency (chronic) (peripheral); E11.40 Type 2 diabetes mellitus with diabetic neuropathy, unspecified; E11.51 Type 2 diabetes mellitus with diabetic peripheral angiopathy without gangrene; I89.0 Lymphedema, not elsewhere classified; M32.10 Systemic lupus erythematosus, organ or system involvement unspecified; M79.7 Fibromyalgia; J44.9 Chronic obstructive pulmonary disease, unspecified; I25.10 Atherosclerotic heart disease of native coronary artery without angina pectoris; E05.00 Thyrotoxicosis with diffuse goiter without thyrotoxic crisis or storm; E78.5 Hyperlipidemia, unspecified; K21.9 Gastro-esophageal reflux disease without esophagitis; G47.30 Sleep apnea, unspecified; I10 Essential (primary) hypertension; M19.90 Unspecified osteoarthritis, unspecified site; E11.39 Type 2 diabetes mellitus with other diabetic ophthalmic complication; H42 Glaucoma in diseases classified elsewhere; E66.9 Obesity, unspecified; F41.9 Anxiety disorder, unspecified; F32.9 Major depressive disorder, single episode, unspecified; Z68.29 Body mass index [BMI] 29.0-29.9, adult; Z86.14 Personal history of Methicillin resistant Staphylococcus aureus infection; Z86.718 Personal history of other venous thrombosis and embolism; Z87.891 Personal history of nicotine dependence; Z79.01 Long term (current) use of anticoagulants; Z79.82 Long term (current) use of aspirin ==

== ENCOUNTER → 2020-04-21 | Outpatient (CLI) | payer OTHER | LOC: HYPER 13:22 | PROVIDERS: ATTEND Emergency Medicine | DX: I87.333 Chronic venous hypertension (idiopathic) with ulcer and inflammation of bilateral lower extremity (principal); E11.622 Type 2 diabetes mellitus with other skin ulcer; L97.822 Non-pressure chronic ulcer of other part of left lower leg with fat layer exposed; L97.322 Non-pressure chronic ulcer of left ankle with fat layer exposed; L97.812 Non-pressure chronic ulcer of other part of right lower leg with fat layer exposed; E11.621 Type 2 diabetes mellitus with foot ulcer; L97.522 Non-pressure chronic ulcer of other part of left foot with fat layer exposed; L97.512 Non-pressure chronic ulcer of other part of right foot with fat layer exposed; I89.0 Lymphedema, not elsewhere classified; E11.40 Type 2 diabetes mellitus with diabetic neuropathy, unspecified; E11.51 Type 2 diabetes mellitus with diabetic peripheral angiopathy without gangrene; M32.10 Systemic lupus erythematosus, organ or system involvement unspecified; M79.7 Fibromyalgia; J44.9 Chronic obstructive pulmonary disease, unspecified; I25.10 Atherosclerotic heart disease of native coronary artery without angina pectoris; E05.00 Thyrotoxicosis with diffuse goiter without thyrotoxic crisis or storm; K90.0 Celiac disease; E66.9 Obesity, unspecified; G47.30 Sleep apnea, unspecified; E05.90 Thyrotoxicosis, unspecified without thyrotoxic crisis or storm; K21.9 Gastro-esophageal reflux disease without esophagitis; M19.90 Unspecified osteoarthritis, unspecified site; E11.39 Type 2 diabetes mellitus with other diabetic ophthalmic complication; H42 Glaucoma in diseases classified elsewhere; E11.36 Type 2 diabetes mellitus with diabetic cataract; F32.9 Major depressive disorder, single episode, unspecified; Z68.29 Body mass index [BMI] 29.0-29.9, adult; Z86.718 Personal history of other venous thrombosis and embolism; Z86.14 Personal history of Methicillin resistant Staphylococcus aureus infection; Z87.891 Personal history of nicotine dependence; Z79.01 Long term (current) use of anticoagulants; Z79.82 Long term (current) use of aspirin ==

== ENCOUNTER → 2020-05-26 | Outpatient (CLI) | payer OTHER | LOC: HYPER 12:31 | PROVIDERS: ATTEND Emergency Medicine | DX: E11.622 Type 2 diabetes mellitus with other skin ulcer (principal); I87.333 Chronic venous hypertension (idiopathic) with ulcer and inflammation of bilateral lower extremity; L97.822 Non-pressure chronic ulcer of other part of left lower leg with fat layer exposed; L97.812 Non-pressure chronic ulcer of other part of right lower leg with fat layer exposed; L97.322 Non-pressure chronic ulcer of left ankle with fat layer exposed; L97.312 Non-pressure chronic ulcer of right ankle with fat layer exposed; E11.621 Type 2 diabetes mellitus with foot ulcer; L97.522 Non-pressure chronic ulcer of other part of left foot with fat layer exposed; L97.512 Non-pressure chronic ulcer of other part of right foot with fat layer exposed; L84 Corns and callosities; I89.0 Lymphedema, not elsewhere classified; E11.40 Type 2 diabetes mellitus with diabetic neuropathy, unspecified; E11.39 Type 2 diabetes mellitus with other diabetic ophthalmic complication; H40.9 Unspecified glaucoma; E11.51 Type 2 diabetes mellitus with diabetic peripheral angiopathy without gangrene; E05.00 Thyrotoxicosis with diffuse goiter without thyrotoxic crisis or storm; E66.9 Obesity, unspecified; G47.30 Sleep apnea, unspecified; I25.10 Atherosclerotic heart disease of native coronary artery without angina pectoris; I10 Essential (primary) hypertension; J44.9 Chronic obstructive pulmonary disease, unspecified; M32.10 Systemic lupus erythematosus, organ or system involvement unspecified; M19.90 Unspecified osteoarthritis, unspecified site; K21.9 Gastro-esophageal reflux disease without esophagitis; F32.9 Major depressive disorder, single episode, unspecified; F41.9 Anxiety disorder, unspecified; Z86.718 Personal history of other venous thrombosis and embolism; Z87.891 Personal history of nicotine dependence; Z68.29 Body mass index [BMI] 29.0-29.9, adult ==

== ENCOUNTER → 2020-07-14 | Outpatient (CLI) | payer OTHER | LOC: HYPER 13:31 | PROVIDERS: ATTEND Emergency Medicine | DX: E11.622 Type 2 diabetes mellitus with other skin ulcer (principal); I87.333 Chronic venous hypertension (idiopathic) with ulcer and inflammation of bilateral lower extremity; L97.822 Non-pressure chronic ulcer of other part of left lower leg with fat layer exposed; L97.812 Non-pressure chronic ulcer of other part of right lower leg with fat layer exposed; L97.322 Non-pressure chronic ulcer of left ankle with fat layer exposed; L97.312 Non-pressure chronic ulcer of right ankle with fat layer exposed; E11.621 Type 2 diabetes mellitus with foot ulcer; L97.522 Non-pressure chronic ulcer of other part of left foot with fat layer exposed; L97.512 Non-pressure chronic ulcer of other part of right foot with fat layer exposed; L84 Corns and callosities; I89.0 Lymphedema, not elsewhere classified; E11.40 Type 2 diabetes mellitus with diabetic neuropathy, unspecified; E11.39 Type 2 diabetes mellitus with other diabetic ophthalmic complication; H42 Glaucoma in diseases classified elsewhere; E11.51 Type 2 diabetes mellitus with diabetic peripheral angiopathy without gangrene; E05.00 Thyrotoxicosis with diffuse goiter without thyrotoxic crisis or storm; E66.9 Obesity, unspecified; G47.30 Sleep apnea, unspecified; I25.10 Atherosclerotic heart disease of native coronary artery without angina pectoris; I10 Essential (primary) hypertension; J44.9 Chronic obstructive pulmonary disease, unspecified; M79.7 Fibromyalgia; M32.10 Systemic lupus erythematosus, organ or system involvement unspecified; M19.90 Unspecified osteoarthritis, unspecified site; K21.9 Gastro-esophageal reflux disease without esophagitis; F32.9 Major depressive disorder, single episode, unspecified; F41.9 Anxiety disorder, unspecified; Z86.718 Personal history of other venous thrombosis and embolism; Z87.891 Personal history of nicotine dependence; Z68.29 Body mass index [BMI] 29.0-29.9, adult ==

== ENCOUNTER → 2020-08-11 | Outpatient (CLI) | payer OTHER | LOC: HYPER 09:19 | PROVIDERS: ATTEND Emergency Medicine | DX: E11.622 Type 2 diabetes mellitus with other skin ulcer (principal); I87.333 Chronic venous hypertension (idiopathic) with ulcer and inflammation of bilateral lower extremity; L97.822 Non-pressure chronic ulcer of other part of left lower leg with fat layer exposed; L97.812 Non-pressure chronic ulcer of other part of right lower leg with fat layer exposed; L97.322 Non-pressure chronic ulcer of left ankle with fat layer exposed; L97.312 Non-pressure chronic ulcer of right ankle with fat layer exposed; E11.621 Type 2 diabetes mellitus with foot ulcer; L97.522 Non-pressure chronic ulcer of other part of left foot with fat layer exposed; L97.512 Non-pressure chronic ulcer of other part of right foot with fat layer exposed; L84 Corns and callosities; I89.0 Lymphedema, not elsewhere classified; E11.40 Type 2 diabetes mellitus with diabetic neuropathy, unspecified; E11.39 Type 2 diabetes mellitus with other diabetic ophthalmic complication; H42 Glaucoma in diseases classified elsewhere; E11.51 Type 2 diabetes mellitus with diabetic peripheral angiopathy without gangrene; E05.00 Thyrotoxicosis with diffuse goiter without thyrotoxic crisis or storm; E66.9 Obesity, unspecified; G47.30 Sleep apnea, unspecified; I25.10 Atherosclerotic heart disease of native coronary artery without angina pectoris; I10 Essential (primary) hypertension; J44.9 Chronic obstructive pulmonary disease, unspecified; M79.7 Fibromyalgia; M32.10 Systemic lupus erythematosus, organ or system involvement unspecified; M19.90 Unspecified osteoarthritis, unspecified site; K21.9 Gastro-esophageal reflux disease without esophagitis; F32.9 Major depressive disorder, single episode, unspecified; F41.9 Anxiety disorder, unspecified; Z86.718 Personal history of other venous thrombosis and embolism; Z87.891 Personal history of nicotine dependence; Z68.29 Body mass index [BMI] 29.0-29.9, adult ==

== ENCOUNTER → 2020-09-24 | Outpatient (CLI) | payer OTHER | LOC: HYPER 12:23 | PROVIDERS: ATTEND Emergency Medicine | DX: E11.622 Type 2 diabetes mellitus with other skin ulcer (principal); I87.333 Chronic venous hypertension (idiopathic) with ulcer and inflammation of bilateral lower extremity; L97.822 Non-pressure chronic ulcer of other part of left lower leg with fat layer exposed; L97.812 Non-pressure chronic ulcer of other part of right lower leg with fat layer exposed; L97.322 Non-pressure chronic ulcer of left ankle with fat layer exposed; L97.312 Non-pressure chronic ulcer of right ankle with fat layer exposed; E11.621 Type 2 diabetes mellitus with foot ulcer; L97.522 Non-pressure chronic ulcer of other part of left foot with fat layer exposed; L97.512 Non-pressure chronic ulcer of other part of right foot with fat layer exposed; L84 Corns and callosities; I89.0 Lymphedema, not elsewhere classified; E11.40 Type 2 diabetes mellitus with diabetic neuropathy, unspecified; E11.39 Type 2 diabetes mellitus with other diabetic ophthalmic complication; H42 Glaucoma in diseases classified elsewhere; E11.51 Type 2 diabetes mellitus with diabetic peripheral angiopathy without gangrene; E05.00 Thyrotoxicosis with diffuse goiter without thyrotoxic crisis or storm; E66.9 Obesity, unspecified; G47.30 Sleep apnea, unspecified; I25.10 Atherosclerotic heart disease of native coronary artery without angina pectoris; I10 Essential (primary) hypertension; J44.9 Chronic obstructive pulmonary disease, unspecified; K21.9 Gastro-esophageal reflux disease without esophagitis; M79.7 Fibromyalgia; M32.10 Systemic lupus erythematosus, organ or system involvement unspecified; M19.90 Unspecified osteoarthritis, unspecified site; F32.9 Major depressive disorder, single episode, unspecified; F41.9 Anxiety disorder, unspecified; Z86.718 Personal history of other venous thrombosis and embolism; Z87.891 Personal history of nicotine dependence; Z68.29 Body mass index [BMI] 29.0-29.9, adult ==

== ENCOUNTER → 2020-10-22 | Outpatient (CLI) | payer OTHER | LOC: HYPER 13:32 | PROVIDERS: ATTEND Emergency Medicine | DX: I87.333 Chronic venous hypertension (idiopathic) with ulcer and inflammation of bilateral lower extremity (principal); E11.622 Type 2 diabetes mellitus with other skin ulcer; L97.822 Non-pressure chronic ulcer of other part of left lower leg with fat layer exposed; L97.812 Non-pressure chronic ulcer of other part of right lower leg with fat layer exposed; L97.322 Non-pressure chronic ulcer of left ankle with fat layer exposed; L97.312 Non-pressure chronic ulcer of right ankle with fat layer exposed; E11.621 Type 2 diabetes mellitus with foot ulcer; L97.522 Non-pressure chronic ulcer of other part of left foot with fat layer exposed; L97.512 Non-pressure chronic ulcer of other part of right foot with fat layer exposed; E11.40 Type 2 diabetes mellitus with diabetic neuropathy, unspecified; E11.51 Type 2 diabetes mellitus with diabetic peripheral angiopathy without gangrene; I89.0 Lymphedema, not elsewhere classified; M32.10 Systemic lupus erythematosus, organ or system involvement unspecified; M79.7 Fibromyalgia; L84 Corns and callosities; M32.9 Systemic lupus erythematosus, unspecified; J44.9 Chronic obstructive pulmonary disease, unspecified; I25.10 Atherosclerotic heart disease of native coronary artery without angina pectoris; E05.00 Thyrotoxicosis with diffuse goiter without thyrotoxic crisis or storm; K21.9 Gastro-esophageal reflux disease without esophagitis; G47.30 Sleep apnea, unspecified; M19.90 Unspecified osteoarthritis, unspecified site; E11.39 Type 2 diabetes mellitus with other diabetic ophthalmic complication; H42 Glaucoma in diseases classified elsewhere; E66.9 Obesity, unspecified; F41.9 Anxiety disorder, unspecified; F32.9 Major depressive disorder, single episode, unspecified; Z68.29 Body mass index [BMI] 29.0-29.9, adult; Z86.14 Personal history of Methicillin resistant Staphylococcus aureus infection; Z86.718 Personal history of other venous thrombosis and embolism; Z87.891 Personal history of nicotine dependence; Z79.82 Long term (current) use of aspirin; Z79.01 Long term (current) use of anticoagulants; Z79.899 Other long term (current) drug therapy ==

== ENCOUNTER → 2020-11-19 | Outpatient (CLI) | payer OTHER | LOC: HYPER 08:29 | PROVIDERS: ATTEND Emergency Medicine | DX: E11.622 Type 2 diabetes mellitus with other skin ulcer (principal); I87.333 Chronic venous hypertension (idiopathic) with ulcer and inflammation of bilateral lower extremity; L97.822 Non-pressure chronic ulcer of other part of left lower leg with fat layer exposed; L97.812 Non-pressure chronic ulcer of other part of right lower leg with fat layer exposed; L97.322 Non-pressure chronic ulcer of left ankle with fat layer exposed; L97.312 Non-pressure chronic ulcer of right ankle with fat layer exposed; E11.621 Type 2 diabetes mellitus with foot ulcer; L97.522 Non-pressure chronic ulcer of other part of left foot with fat layer exposed; L97.512 Non-pressure chronic ulcer of other part of right foot with fat layer exposed; S90.821A Blister (nonthermal), right foot, initial encounter; X58.XXXA Exposure to other specified factors, initial encounter; Y93.89 Activity, other specified; Y92.89 Other specified places as the place of occurrence of the external cause; Y99.8 Other external cause status; E11.40 Type 2 diabetes mellitus with diabetic neuropathy, unspecified; E11.51 Type 2 diabetes mellitus with diabetic peripheral angiopathy without gangrene; I89.0 Lymphedema, not elsewhere classified; M32.10 Systemic lupus erythematosus, organ or system involvement unspecified; M79.7 Fibromyalgia; L84 Corns and callosities; M32.9 Systemic lupus erythematosus, unspecified; J44.9 Chronic obstructive pulmonary disease, unspecified; I25.10 Atherosclerotic heart disease of native coronary artery without angina pectoris; E05.00 Thyrotoxicosis with diffuse goiter without thyrotoxic crisis or storm; K21.9 Gastro-esophageal reflux disease without esophagitis; G47.30 Sleep apnea, unspecified; M19.90 Unspecified osteoarthritis, unspecified site; E11.39 Type 2 diabetes mellitus with other diabetic ophthalmic complication; H42 Glaucoma in diseases classified elsewhere; E66.9 Obesity, unspecified; F41.9 Anxiety disorder, unspecified; F32.9 Major depressive disorder, single episode, unspecified; Z68.29 Body mass index [BMI] 29.0-29.9, adult; Z86.14 Personal history of Methicillin resistant Staphylococcus aureus infection; Z86.718 Personal history of other venous thrombosis and embolism; Z87.891 Personal history of nicotine dependence; Z79.82 Long term (current) use of aspirin; Z79.01 Long term (current) use of anticoagulants ==

== ENCOUNTER → 2020-12-10 | Outpatient (CLI) | payer OTHER | LOC: HYPER 07:52 | PROVIDERS: ATTEND Emergency Medicine | DX: I87.333 Chronic venous hypertension (idiopathic) with ulcer and inflammation of bilateral lower extremity (principal); E11.622 Type 2 diabetes mellitus with other skin ulcer; L97.822 Non-pressure chronic ulcer of other part of left lower leg with fat layer exposed; L97.812 Non-pressure chronic ulcer of other part of right lower leg with fat layer exposed; L97.322 Non-pressure chronic ulcer of left ankle with fat layer exposed; L97.312 Non-pressure chronic ulcer of right ankle with fat layer exposed; E11.621 Type 2 diabetes mellitus with foot ulcer; L97.522 Non-pressure chronic ulcer of other part of left foot with fat layer exposed; L97.512 Non-pressure chronic ulcer of other part of right foot with fat layer exposed; E11.40 Type 2 diabetes mellitus with diabetic neuropathy, unspecified; I89.0 Lymphedema, not elsewhere classified; M32.10 Systemic lupus erythematosus, organ or system involvement unspecified; M32.9 Systemic lupus erythematosus, unspecified; J44.9 Chronic obstructive pulmonary disease, unspecified; I25.10 Atherosclerotic heart disease of native coronary artery without angina pectoris; E05.00 Thyrotoxicosis with diffuse goiter without thyrotoxic crisis or storm; K21.9 Gastro-esophageal reflux disease without esophagitis; M19.90 Unspecified osteoarthritis, unspecified site; E11.39 Type 2 diabetes mellitus with other diabetic ophthalmic complication; H42 Glaucoma in diseases classified elsewhere; E11.51 Type 2 diabetes mellitus with diabetic peripheral angiopathy without gangrene; G47.30 Sleep apnea, unspecified; E66.9 Obesity, unspecified; F32.9 Major depressive disorder, single episode, unspecified; F41.9 Anxiety disorder, unspecified; Z68.29 Body mass index [BMI] 29.0-29.9, adult; Z86.14 Personal history of Methicillin resistant Staphylococcus aureus infection; Z86.718 Personal history of other venous thrombosis and embolism; Z99.81 Dependence on supplemental oxygen; Z87.891 Personal history of nicotine dependence; Z79.01 Long term (current) use of anticoagulants; Z79.82 Long term (current) use of aspirin; Z79.899 Other long term (current) drug therapy ==

== ENCOUNTER → 2020-12-23 | Outpatient (CLI) | payer OTHER | LOC: SJCVCIMAG 07:58 | PROVIDERS: ATTEND Internal Medicine Cardiovascular Disease | DX: I08.3 Combined rheumatic disorders of mitral, aortic and tricuspid valves (principal); I27.20 Pulmonary hypertension, unspecified; R94.31 Abnormal electrocardiogram [ECG] [EKG]; I11.9 Hypertensive heart disease without heart failure; I48.20 Chronic atrial fibrillation, unspecified; E78.00 Pure hypercholesterolemia, unspecified; I73.9 Peripheral vascular disease, unspecified; I25.10 Atherosclerotic heart disease of native coronary artery without angina pectoris; I77.819 Aortic ectasia, unspecified site; I83.019 Varicose veins of right lower extremity with ulcer of unspecified site; I83.029 Varicose veins of left lower extremity with ulcer of unspecified site; L97.919 Non-pressure chronic ulcer of unspecified part of right lower leg with unspecified severity; L97.929 Non-pressure chronic ulcer of unspecified part of left lower leg with unspecified severity; J44.9 Chronic obstructive pulmonary disease, unspecified; E66.9 Obesity, unspecified; G47.33 Obstructive sleep apnea (adult) (pediatric); Z90.49 Acquired absence of other specified parts of digestive tract; Z79.899 Other long term (current) drug therapy; Z87.891 Personal history of nicotine dependence; Z82.49 Family history of ischemic heart disease and other diseases of the circulatory system ==

== ENCOUNTER → 2021-01-25 | Outpatient (CLI) | payer OTHER | LOC: HYPER 09:21 | PROVIDERS: ATTEND Emergency Medicine | DX: I87.333 Chronic venous hypertension (idiopathic) with ulcer and inflammation of bilateral lower extremity (principal); E11.622 Type 2 diabetes mellitus with other skin ulcer; L97.822 Non-pressure chronic ulcer of other part of left lower leg with fat layer exposed; L97.812 Non-pressure chronic ulcer of other part of right lower leg with fat layer exposed; L97.322 Non-pressure chronic ulcer of left ankle with fat layer exposed; L97.312 Non-pressure chronic ulcer of right ankle with fat layer exposed; E11.621 Type 2 diabetes mellitus with foot ulcer; L97.522 Non-pressure chronic ulcer of other part of left foot with fat layer exposed; L97.512 Non-pressure chronic ulcer of other part of right foot with fat layer exposed; S91.102A Unspecified open wound of left great toe without damage to nail, initial encounter; S91.101A Unspecified open wound of right great toe without damage to nail, initial encounter; S91.105A Unspecified open wound of left lesser toe(s) without damage to nail, initial encounter; I89.0 Lymphedema, not elsewhere classified; E11.40 Type 2 diabetes mellitus with diabetic neuropathy, unspecified; E11.51 Type 2 diabetes mellitus with diabetic peripheral angiopathy without gangrene; E11.39 Type 2 diabetes mellitus with other diabetic ophthalmic complication; H42 Glaucoma in diseases classified elsewhere; E05.00 Thyrotoxicosis with diffuse goiter without thyrotoxic crisis or storm; E66.9 Obesity, unspecified; I25.10 Atherosclerotic heart disease of native coronary artery without angina pectoris; J44.9 Chronic obstructive pulmonary disease, unspecified; G47.30 Sleep apnea, unspecified; K21.9 Gastro-esophageal reflux disease without esophagitis; M79.7 Fibromyalgia; M19.90 Unspecified osteoarthritis, unspecified site; M32.10 Systemic lupus erythematosus, organ or system involvement unspecified; M32.9 Systemic lupus erythematosus, unspecified; F32.9 Major depressive disorder, single episode, unspecified; F41.9 Anxiety disorder, unspecified; Z68.29 Body mass index [BMI] 29.0-29.9, adult; Z86.14 Personal history of Methicillin resistant Staphylococcus aureus infection; Z86.718 Personal history of other venous thrombosis and embolism; Z99.81 Dependence on supplemental oxygen; Z87.891 Personal history of nicotine dependence; Z79.01 Long term (current) use of anticoagulants; Z79.82 Long term (current) use of aspirin; X58.XXXA Exposure to other specified factors, initial encounter; Y93.89 Activity, other specified; Y92.89 Other specified places as the place of occurrence of the external cause; Y99.8 Other external cause status ==

== ENCOUNTER → 2021-02-15 | Outpatient (CLI) | payer OTHER | LOC: HYPER 07:30 | PROVIDERS: ATTEND Emergency Medicine | DX: I87.333 Chronic venous hypertension (idiopathic) with ulcer and inflammation of bilateral lower extremity (principal); E11.622 Type 2 diabetes mellitus with other skin ulcer; L97.822 Non-pressure chronic ulcer of other part of left lower leg with fat layer exposed; L97.812 Non-pressure chronic ulcer of other part of right lower leg with fat layer exposed; L97.322 Non-pressure chronic ulcer of left ankle with fat layer exposed; L97.312 Non-pressure chronic ulcer of right ankle with fat layer exposed; E11.621 Type 2 diabetes mellitus with foot ulcer; L97.522 Non-pressure chronic ulcer of other part of left foot with fat layer exposed; L97.512 Non-pressure chronic ulcer of other part of right foot with fat layer exposed; S91.102D Unspecified open wound of left great toe without damage to nail, subsequent encounter; S91.105D Unspecified open wound of left lesser toe(s) without damage to nail, subsequent encounter; I89.0 Lymphedema, not elsewhere classified; E11.40 Type 2 diabetes mellitus with diabetic neuropathy, unspecified; E11.51 Type 2 diabetes mellitus with diabetic peripheral angiopathy without gangrene; E11.39 Type 2 diabetes mellitus with other diabetic ophthalmic complication; H42 Glaucoma in diseases classified elsewhere; E05.00 Thyrotoxicosis with diffuse goiter without thyrotoxic crisis or storm; E66.9 Obesity, unspecified; I25.10 Atherosclerotic heart disease of native coronary artery without angina pectoris; J44.9 Chronic obstructive pulmonary disease, unspecified; G47.30 Sleep apnea, unspecified; K21.9 Gastro-esophageal reflux disease without esophagitis; M79.7 Fibromyalgia; M19.90 Unspecified osteoarthritis, unspecified site; M32.10 Systemic lupus erythematosus, organ or system involvement unspecified; F32.9 Major depressive disorder, single episode, unspecified; F41.9 Anxiety disorder, unspecified; Z68.29 Body mass index [BMI] 29.0-29.9, adult; Z86.14 Personal history of Methicillin resistant Staphylococcus aureus infection; Z86.718 Personal history of other venous thrombosis and embolism; Z99.81 Dependence on supplemental oxygen; Z87.891 Personal history of nicotine dependence; Z79.01 Long term (current) use of anticoagulants; Z79.82 Long term (current) use of aspirin; X58.XXXD Exposure to other specified factors, subsequent encounter ==

== ENCOUNTER → 2021-03-16 | Outpatient (CLI) | payer OTHER | LOC: HYPER 07:45 | PROVIDERS: ATTEND Emergency Medicine | DX: E11.622 Type 2 diabetes mellitus with other skin ulcer (principal); I87.333 Chronic venous hypertension (idiopathic) with ulcer and inflammation of bilateral lower extremity; L97.822 Non-pressure chronic ulcer of other part of left lower leg with fat layer exposed; L97.812 Non-pressure chronic ulcer of other part of right lower leg with fat layer exposed; L97.322 Non-pressure chronic ulcer of left ankle with fat layer exposed; L97.312 Non-pressure chronic ulcer of right ankle with fat layer exposed; E11.621 Type 2 diabetes mellitus with foot ulcer; L97.522 Non-pressure chronic ulcer of other part of left foot with fat layer exposed; L97.512 Non-pressure chronic ulcer of other part of right foot with fat layer exposed; S91.102D Unspecified open wound of left great toe without damage to nail, subsequent encounter; S91.105D Unspecified open wound of left lesser toe(s) without damage to nail, subsequent encounter; L84 Corns and callosities; I89.0 Lymphedema, not elsewhere classified; E11.40 Type 2 diabetes mellitus with diabetic neuropathy, unspecified; E11.51 Type 2 diabetes mellitus with diabetic peripheral angiopathy without gangrene; E11.39 Type 2 diabetes mellitus with other diabetic ophthalmic complication; H42 Glaucoma in diseases classified elsewhere; E05.00 Thyrotoxicosis with diffuse goiter without thyrotoxic crisis or storm; I25.10 Atherosclerotic heart disease of native coronary artery without angina pectoris; E66.9 Obesity, unspecified; J44.9 Chronic obstructive pulmonary disease, unspecified; G47.30 Sleep apnea, unspecified; K21.9 Gastro-esophageal reflux disease without esophagitis; M79.7 Fibromyalgia; M19.90 Unspecified osteoarthritis, unspecified site; M32.10 Systemic lupus erythematosus, organ or system involvement unspecified; F32.9 Major depressive disorder, single episode, unspecified; F41.9 Anxiety disorder, unspecified; Z68.29 Body mass index [BMI] 29.0-29.9, adult; Z86.14 Personal history of Methicillin resistant Staphylococcus aureus infection; Z86.718 Personal history of other venous thrombosis and embolism; Z99.81 Dependence on supplemental oxygen; Z87.891 Personal history of nicotine dependence; Z79.01 Long term (current) use of anticoagulants; Z79.82 Long term (current) use of aspirin; X58.XXXD Exposure to other specified factors, subsequent encounter ==

== ENCOUNTER → 2021-04-13 | Outpatient (CLI) | payer OTHER | LOC: HYPER 07:46 | PROVIDERS: ATTEND Emergency Medicine | DX: E11.622 Type 2 diabetes mellitus with other skin ulcer (principal); I87.333 Chronic venous hypertension (idiopathic) with ulcer and inflammation of bilateral lower extremity; L97.822 Non-pressure chronic ulcer of other part of left lower leg with fat layer exposed; L97.812 Non-pressure chronic ulcer of other part of right lower leg with fat layer exposed; E11.621 Type 2 diabetes mellitus with foot ulcer; L97.522 Non-pressure chronic ulcer of other part of left foot with fat layer exposed; L97.512 Non-pressure chronic ulcer of other part of right foot with fat layer exposed; L84 Corns and callosities; I89.0 Lymphedema, not elsewhere classified; E11.40 Type 2 diabetes mellitus with diabetic neuropathy, unspecified; E11.51 Type 2 diabetes mellitus with diabetic peripheral angiopathy without gangrene; E11.39 Type 2 diabetes mellitus with other diabetic ophthalmic complication; H42 Glaucoma in diseases classified elsewhere; E05.00 Thyrotoxicosis with diffuse goiter without thyrotoxic crisis or storm; E66.9 Obesity, unspecified; I25.10 Atherosclerotic heart disease of native coronary artery without angina pectoris; J44.9 Chronic obstructive pulmonary disease, unspecified; G47.30 Sleep apnea, unspecified; K21.9 Gastro-esophageal reflux disease without esophagitis; M79.7 Fibromyalgia; M19.90 Unspecified osteoarthritis, unspecified site; M32.10 Systemic lupus erythematosus, organ or system involvement unspecified; F32.9 Major depressive disorder, single episode, unspecified; F41.9 Anxiety disorder, unspecified; Z86.14 Personal history of Methicillin resistant Staphylococcus aureus infection; Z86.718 Personal history of other venous thrombosis and embolism; Z99.81 Dependence on supplemental oxygen; Z87.891 Personal history of nicotine dependence ==